=== PATIENT | female | born 1980 | race Two or more races ===

== ENCOUNTER → 2020-08-27 11:22 | Outpatient (BNVA) | payer OTHER, MEDICAID, SELFPAY | PROVIDERS: Visit Provider Obstetrics & Gynecology | DX: Z76.89 Persons encountering health services in other specified circumstances (principal) ==

== ENCOUNTER 2020-09-11 13:59 | Outpatient (REF) | payer OTHER, MEDICAID, SELFPAY ==
--- NOTE | 2020-09-11 14:03 | US_ITS ---
EXAMINATION: PELVIC ULTRASOUND CLINICAL INFORMATION: Menorrhagia. Evaluate myometrial thickness post 3 C-sections COMPARISON: Previous pelvic ultrasound most recent June 2019 TECHNIQUE: Transabdominal and transvaginal pelvic ultrasound was performed. Transvaginal exam was performed for better visualization of the uterus and ovaries. FINDINGS: The uterus is anteverted and measures 11 x 4 x 6.1 cm in dimension. No focal uterine lesion is seen. Myometrial thickness in the anterior lower uterine segment measures 0.7 cm. Endometrial thickness is normal and measures 1.1 cm. There are nabothian cysts in the cervix. The ovaries are normal-appearing. The right ovary measures 2 x 1.9 x 2.1 cm and the left ovary measures 3.3 x 1.8 x 3.2 cm. There is no fluid in the pelvis. US/US transvaginal IMPRESSION: Lower uterine segment myometrial thickness measures 0.7 cm. Otherwise unremarkable exam.
--- NOTE | 2020-09-11 14:03 | US_ITS ---
EXAMINATION: PELVIC ULTRASOUND CLINICAL INFORMATION: Menorrhagia. Evaluate myometrial thickness post 3 C-sections COMPARISON: Previous pelvic ultrasound most recent June 2019 TECHNIQUE: Transabdominal and transvaginal pelvic ultrasound was performed. Transvaginal exam was performed for better visualization of the uterus and ovaries. FINDINGS: The uterus is anteverted and measures 11 x 4 x 6.1 cm in dimension. No focal uterine lesion is seen. Myometrial thickness in the anterior lower uterine segment measures 0.7 cm. Endometrial thickness is normal and measures 1.1 cm. There are nabothian cysts in the cervix. The ovaries are normal-appearing. The right ovary measures 2 x 1.9 x 2.1 cm and the left ovary measures 3.3 x 1.8 x 3.2 cm. There is no fluid in the pelvis. US/US pelvic complete IMPRESSION: Lower uterine segment myometrial thickness measures 0.7 cm. Otherwise unremarkable exam.
== END 2020-09-11 14:00 | disposition home or self-care (01) ==
LOC: HO.US 13:59
PROVIDERS: PCP Internal Medicine; Visit Provider Obstetrics & Gynecology
DX: R10.2 Pelvic and perineal pain (principal)
CPT/HCPCS: 76830; 76856

== ENCOUNTER 2020-09-22 11:28 | Outpatient (REF) | payer OTHER, SELFPAY ==
[2020-09-23 08:27] LABS: BV Int Neg Control Negative (Negative); BV Int Pos Control Positive (Positive)
[2020-09-24 05:41] LABS: C. trachomatis RNA TMA NOT DETECTED (NOT DETECTED); N. gonorrhoeae RNA TMA NOT DETECTED (NOT DETECTED)
== END 2020-09-22 11:29 | disposition home or self-care (01) ==
LOC: HO.LNP 11:28
PROVIDERS: PCP Internal Medicine; Visit Provider Obstetrics & Gynecology
DX: Z11.3 Encounter for screening for infections with a predominantly sexual mode of transmission (principal); N63.0 Unspecified lump in unspecified breast; R10.2 Pelvic and perineal pain
CPT/HCPCS: 87480; 87491; 87510; 87591; 87660; 99212

== ENCOUNTER → 2020-10-06 10:39 | Outpatient (BNVA) | payer OTHER, SELFPAY | PROVIDERS: PCP Internal Medicine; Visit Provider Obstetrics & Gynecology | DX: Z76.89 Persons encountering health services in other specified circumstances (principal) ==

== ENCOUNTER 2021-04-03 10:01 | Outpatient (REF) | payer OTHER, SELFPAY ==
[2021-04-03 10:44] LABS: MANUAL DIFF FLAG NO
[2021-04-03 10:52] LABS: Basophils Percent Auto 0.4 % (0-2); Eosinophils Absolute Auto 0.2 X10*3/uL (0.0-0.4); Hematocrit 42.1 % (37-47); Hemoglobin 13.8 g/dl (12.0-16.0); Imm Gran Abs Auto 0.01 X10*3/uL (0.00-0.03); Imm Gran Pct Auto 0.2 % (0.0-0.4); Lymphocytes Absolute Auto 2.3 X10*3/uL (1.2-4.9); Lymphocytes Percent Auto 40.5 % (20-40); Mean Corpuscular HGB Conc 32.8 g/dl (31.0-35.0); Mean Corpuscular Hemoglobin 30.5 pg (27.0-33.0); Mean Corpuscular Volume 92.9 fL (80-98); Monocytes Absolute Auto 0.5 X10*3/uL (0.1-1.2); Monocytes Percent Auto 8.7 % (2-11); Neutrophils Absolute Auto 2.7 X10*3/uL (2.0-8.3); Neutrophils Percent Auto 47.2 % (45-73); Platelet Count 232 X10*3/uL (160-400); Red Blood Count 4.53 X10*6/uL (4.20-5.50); Red Cell Distribution Width 12.7 % (11.0-16.0); White Blood Count 5.6 X10*3/uL (4.8-10.8)
[2021-04-03 11:25] LABS: Alanine Aminotransferase 18 U/L (0-31); Albumin Level 4.1 g/dL (3.5-5.0); Alkaline Phosphatase 56 U/L (39-117); Anion Gap 10 (12-20); Aspartate Amino Transferase 15 U/L (5-31); Bilirubin Total 0.3 mg/dL (0.0-1.0); Blood Urea Nitrogen 6 mg/dL (9-16); Calcium 8.8 mg/dL (8.4-10.2); Carbon Dioxide 25 mmol/L (22-29); Chloride 108 mmol/L (96-108); Cholesterol 168 mg/dL; Estimated Glomerular Filt Rate > 60; Glucose Random 98 mg/dL (60-115); HDL Cholesterol 36 mg/dL; LDL Cholesterol Calculated 118 mg/dl; Sodium 139 mmol/L (135-145); Total Protein 6.9 g/dL (6.5-8.0); Triglycerides 72 mg/dL
[2021-04-03 11:38] LABS: Thyroid Stimulating Hormone 0.07 uIU/mL (0.32-4.0); Vitamin D 25-OH Total 40.2 ng/mL (>30)
[2021-04-03 11:51] LABS: Folate 14.5 ng/mL (> or = 4.0); Vitamin B12 > 2000 pg/mL (200-900)
[2021-04-06 17:17] LABS: TS Negative Control Passed; TS Panel A 0; TS Panel B 0; TS Positive Control Passed; TSpotTB Negative (SeeBelow)
== END 2021-04-03 10:02 | disposition home or self-care (01) ==
LOC: HO.LAB 10:01
PROVIDERS: PCP Internal Medicine; Visit Provider Internal Medicine
DX: E78.00 Pure hypercholesterolemia, unspecified (principal); E03.9 Hypothyroidism, unspecified
CPT/HCPCS: 36415; 80053; 80061; 82306; 82607; 82746; 84439; 84443; 85025; 86481

== ENCOUNTER 2021-10-23 11:22 | Outpatient (REF) | payer OTHER, SELFPAY ==
--- NOTE | ~2021-10-23 | US_ITS ---
EXAMINATION: APPENDIX ULTRASOUND CLINICAL INFORMATION: Right lower quadrant pain COMPARISON: None TECHNIQUE: Grayscale and color imaging of the right lower quadrant using a linear and curved transducer FINDINGS: The appendix is not identified by ultrasound. No ascites. US/US appendix IMPRESSION: Appendix not identified by ultrasound.
--- NOTE | ~2021-10-23 | US_ITS ---
EXAMINATION: US PELVIS CLINICAL INFORMATION: Right lower quadrant pain. History of endometrial ablation leading to absence of menstrual cycles. History of 3 prior C-sections. COMPARISON: Ultrasound dated from 09/11/2020. TECHNIQUE: Ultrasound of the pelvis is performed using both transabdominal and transvaginal transducers along with Doppler. Transvaginal imaging is performed due to inadequate visualization transabdominally. FINDINGS: The uterus is retroflexed and measures 9.6 x 4.6 x 5.2 cm. There is a 1.2 x 0.9 x 1.1 cm predominantly hypoechoic lesion in the myometrium of the right upper uterine body, which is not definitely identified on prior examinations. There is redemonstration of myometrial thickening in the lower anterior uterine segment, likely sequela of prior C-sections and not significantly changed. The endometrium was not well visualized. Nabothian cysts overlie the cervix. The right ovary measures 2.8 x 1.9 x 1.8 cm (5 mL) and the left ovary measures 2.7 x 2.8 x 1.8 cm (7 mL). No ovarian lesions are identified, and there is preserved flow on color Doppler. No free fluid. US/US pelvic and transvaginal IMPRESSION: Indeterminate 1.2 cm hypoechoic intramural lesion in the right upper uterus which statistically is likely to represent a fibroid. However, this is not definitely identified on the most recent priors which is atypical and therefore a short-term follow-up ultrasound is recommended to ensure stability or further characterization could be obtained with an MR of the pelvis. No evidence of ovarian torsion at the moment of this examination. No free fluid.
[2021-10-23 11:49] LABS: MANUAL DIFF FLAG NO
[2021-10-23 11:59] LABS: Basophils Percent Auto 0.5 % (0-2); Eosinophils Absolute Auto 0.2 X10*3/uL (0.0-0.4); Eosinophils Percent Auto 2.4 % (0-4); Hemoglobin 13.7 g/dl (12.0-16.0); Imm Gran Abs Auto 0.01 X10*3/uL (0.00-0.03); Imm Gran Pct Auto 0.2 % (0.0-0.4); Lymphocytes Absolute Auto 3.3 X10*3/uL (1.2-4.9); Lymphocytes Percent Auto 53.8 % (20-40); Mean Corpuscular HGB Conc 33.4 g/dl (31.0-35.0); Mean Corpuscular Hemoglobin 30.9 pg (27.0-33.0); Mean Corpuscular Volume 92.3 fL (80.0-98.0); Mean Platelet Volume 9.6 fL (9.4-12.3); Monocytes Absolute Auto 0.5 X10*3/uL (0.1-1.2); Monocytes Percent Auto 7.4 % (2-11); Neutrophils Absolute Auto 2.2 x10*3/uL (2.0-8.3); Neutrophils Percent Auto 35.7 % (45-73); Platelet Count 222 X10*3/uL (160-400); Red Blood Count 4.44 X10*6/uL (4.20-5.50); Red Cell Distribution Width 12.6 % (11.0-16.0); White Blood Count 6.2 X10*3/uL (4.8-10.8)
[2021-10-23 12:29] LABS: Alanine Aminotransferase 47 U/L (0-31); Alkaline Phosphatase 59 U/L (39-117); Anion Gap 10 (12-20); Aspartate Amino Transferase 39 U/L (5-31); Bilirubin Total 0.4 mg/dL (0.0-1.0); Blood Urea Nitrogen 10 mg/dL (9-16); Calcium 9.3 mg/dL (8.4-10.2); Carbon Dioxide 28 mmol/L (22-29); Chloride 108 mmol/L (96-108); Estimated Glomerular Filt Rate > 60; Glucose Random 92 mg/dL (60-115); Potassium 4.2 mmol/L (3.3-5.1); Sodium 142 mmol/L (135-145)
[2021-10-23 12:51] LABS: Free T4 (Free Thyroxine) 0.91 ng/dL (0.71-1.85); Thyroid Stimulating Hormone 0.85 uIU/mL (0.32-4.0)
== END 2021-10-23 11:23 | disposition home or self-care (01) ==
LOC: HO.US 11:22
PROVIDERS: PCP Internal Medicine; Visit Provider Nurse Practitioner Family
DX: R10.31 Right lower quadrant pain (principal); E03.9 Hypothyroidism, unspecified
CPT/HCPCS: 36415; 76705; 76830; 76856; 80053; 84439; 84443; 85025

== ENCOUNTER 2021-10-27 13:53 | Outpatient (REF) | payer OTHER, SELFPAY | END 2021-10-27 13:54 | disposition home or self-care (01) | LOC: HO.CT 13:53 | PROVIDERS: Visit Provider Nurse Practitioner Family | DX: Z13.89 Encounter for screening for other disorder (principal) ==

== ENCOUNTER 2021-11-04 14:32 | Outpatient (REF) | payer OTHER, SELFPAY ==
--- NOTE | ~2021-11-04 | CT_ITS ---
EXAMINATION: CT ABDOMEN AND PELVIS WITH CONTRAST CLINICAL INFORMATION: Other specified abnormal findings of blood chemistry. Recent exams indicates history of right lower quadrant pain. COMPARISON: Previous pelvic and appendix ultrasound 10/23/2021 TECHNIQUE: Multidetector volumetric images were obtained from the superior aspect of the liver through the pubic symphysis following administration 85 mL of Omnipaque 350 intravenous contrast. Sagittal and coronal reformatted images were obtained on the technologist's workstation. Oral contrast: Yes This CT examination was performed using dose optimization techniques as appropriate, variously including the following: *Automated exposure control *Adjustment of mA and/or kV according to patient size (this includes techniques or standardized protocols for targeted exams where dose is matched to indication/reason for exam; i.e. extremities or head) *Use of iterative reconstruction technique DLP: 323 mGy-cm FINDINGS: LUNG BASES: The visualized lung bases are unremarkable. LIVER, GALLBLADDER, AND BILIARY TREE: The liver is normal in size, shape, and attenuation. No focal hepatic lesion or biliary ductal dilatation is present. The gallbladder is contracted. The gallbladder is otherwise unremarkable. PANCREAS: Unremarkable. SPLEEN: Unremarkable. ADRENAL GLANDS: Unremarkable. KIDNEYS AND URETERS: The kidneys are normal in size, shape, and attenuation. No hydronephrosis, hydroureter, or calculi seen. No perinephric stranding. BLADDER: Unremarkable. GASTROINTESTINAL TRACT: There is question of mild wall thickening of the left colon versus underdistention. The small and large bowel are unremarkable otherwise unremarkable. The appendix is unremarkable. The stomach is unremarkable. ABDOMINAL WALL: There is a small umbilical hernia containing fat and a knuckle of small bowel. There is no evidence of obstruction. LYMPH NODES: Normal. VASCULAR: Unremarkable. PELVIC VISCERA: Unremarkable. OSSEOUS STRUCTURES: Unremarkable. CT/CT abdomen pelvis w con IMPRESSION: Normal-appearing appendix. Question mild bowel wall thickening of the left colon/colitis versus changes due to underdistention. Small umbilical hernia containing fat and knuckle of small bowel. No evidence of obstruction. Fleischner guidelines were followed.
[2021-11-04] MEDS: iohexoL 350 MG/ML 100 ML INFUS..BTL IV (15:03)
== END 2021-11-04 14:33 | disposition home or self-care (01) ==
LOC: HO.CT 14:32
PROVIDERS: PCP Nurse Practitioner Family; Visit Provider Nurse Practitioner Family
DX: R10.31 Right lower quadrant pain (principal); R79.89 Other specified abnormal findings of blood chemistry
CPT/HCPCS: 74177; Q9967

== ENCOUNTER 2021-11-25 13:12 | Outpatient (REF) | payer OTHER, SELFPAY ==
[2021-11-25 17:08] LABS: CT PCR NOT DETECTED (Not Detect.); NG PCR NOT DETECTED (Not Detect.)
[2021-11-26 13:31] LABS: BV Int Neg Control Negative (Negative); BV Int Pos Control Positive (Positive)
== END 2021-11-25 13:13 | disposition home or self-care (01) ==
LOC: HO.LAB 13:12
PROVIDERS: Visit Provider Advanced Practice Midwife
DX: R10.2 Pelvic and perineal pain (principal); G89.29 Other chronic pain; Z20.2 Contact with and (suspected) exposure to infections with a predominantly sexual mode of transmission
CPT/HCPCS: 87480; 87491; 87510; 87591; 87660; 99212

== ENCOUNTER → 2021-11-26 08:46 | Outpatient (BNVA) | payer OTHER, SELFPAY | PROVIDERS: PCP Internal Medicine; Referring Provider Internal Medicine; Visit Provider Surgery | DX: K42.9 Umbilical hernia without obstruction or gangrene (principal) | CPT/HCPCS: 99202 ==

== ENCOUNTER 2021-12-21 13:20 | Outpatient (REF) | payer OTHER, SELFPAY ==
--- NOTE | ~2021-12-21 | US_ITS ---
EXAMINATION: US PELVIS CLINICAL INFORMATION: Pelvic and perineal pain. COMPARISON: Ultrasound appendix 10/15/2021. Ultrasound pelvis 10/15/2021. Uterine ablation in 2019. TECHNIQUE: Ultrasound of the pelvis is performed using both transabdominal and transvaginal transducers along with Doppler. Transvaginal imaging is performed due to inadequate visualization transabdominally. FINDINGS: Uterus: The uterus is anteverted, anteflexed and measures 12.3 cm in length, 4.5 cm in AP and 5.3 cm in transverse dimension. The double wall endometrial thickness is 0.4 cm. The uterus is smooth in contour and has normal myometrial echogenicity. There is a hypoechoic lesion in the upper posterior body of the uterus measuring 0.8 x 0.4 x 0.5 cm. Previously it measured 1.2 0.9 x 1.1 cm. There is minimal fluid within the cervical canal with a complex heterogeneous areas seen in the cervix measuring 2.3 x 1.3 x 2.1 cm, question complex nabothian cyst. Adnexa: Both ovaries are visualized. There is normal color flow to the adnexa. There is no ovarian torsion. There is no pelvic ascites or fluid collection. Right ovary measures 2.9 x 1.7 x 2.0 cm and volume 5.2 mL. It appears unremarkable. Previously ovary measured 2.8 x 1.9 x 1.8 cm. Left ovary measures 3.0 x 1.6 x 2.6 cm and volume 2.4 mL. It appears unremarkable. Previously ovary measured 2.7 x 2.8 x 1.8 cm. The small amount of free fluid in the cul-de-sac. US/US pelvic and transvaginal IMPRESSION: Complex lesion in the cervix measuring 2.3 cm, likely complex nabothian cyst. There is minimal fluid within the cervical canal. The uterus is unremarkable except for a small fibroid. The ovaries are unremarkable.
== END 2021-12-21 13:21 | disposition home or self-care (01) ==
LOC: HO.US 13:20
PROVIDERS: Visit Provider Advanced Practice Midwife
DX: R10.2 Pelvic and perineal pain (principal); G89.29 Other chronic pain
CPT/HCPCS: 76830; 76856

== ENCOUNTER → 2022-01-04 12:14 | Outpatient (BNVA) | payer OTHER, SELFPAY | PROVIDERS: PCP Internal Medicine; Visit Provider Advanced Practice Midwife | DX: Z13.89 Encounter for screening for other disorder (principal) ==

== ENCOUNTER → 2022-01-20 14:58 | Outpatient (BNVA) | payer OTHER, SELFPAY | PROVIDERS: PCP Internal Medicine; Visit Provider Obstetrics & Gynecology | DX: R10.2 Pelvic and perineal pain (principal); Z32.02 Encounter for pregnancy test, result negative | CPT/HCPCS: 81025; 99212 ==

== ENCOUNTER 2022-01-29 09:19 | Day surgery (SDC) | payer OTHER, SELFPAY ==
[2022-01-22 17:56] VITALS: BMI 31.2
--- NOTE | 2022-01-28 09:48 | HO.ANESPROP2 ---
Documented by User: Soila Hemphill NP 01/28/22 09:51 HPI - Anesthesia Eval Consult details Narrative: 41yo F for Hernia Repair Umbilical PMFSH Active Problems Active Problems: All Active Problems (Updated 01/20/22 @ 15:53 by Rick Jones MD) Pelvic pain (Acute) Colitis (Acute) Umbilical hernia (Acute) Lesion of uterus (Acute) Elevated LFTs (Acute) RLQ abdominal pain (Acute) Skin tag (Acute) COVID-19 virus infection (Acute) Annual physical exam (Acute) Hypercholesterolemia (Acute) Obesity (BMI 30-39.9) (Acute) Hypothyroidism (Acute) Past Medical History Medical History Anemia HPV test positive Hypercholesterolemia Hypothyroidism Obesity (BMI 30-39.9) Vitamin D deficiency Family History Family History Father Diabetes HTN (hypertension) High cholesterol Mother Lymphoma Maternal Aunt Colon cancer Surgical History Surgical History History of History of endometrial ablation Tubal ligation status Social History Social History Housing: House Alcohol intake: never Patient Tobacco Use Status: Never used Tobacco e-Cigarette/Vaping Use: Never Used Second Hand Smoke Exposure: No Use of substances other than those prescribed or required for medical reasons: No Are you DNR?: No Advance Directives: No Advance Directives Information Provided: No Advance Directives on File: No Recently lost weight without trying: No Nutrition Risks: No Nutritional Risk Patient : No service: No Current occupational status: employed Meds Allergies Allergy/AdvReac Type Severity Reaction Status Date / Time No Known Allergies Allergy Verified 01/29/22 09:34 Home Medications Medication Instructions Recorded Confirmed Last Taken Type acetaminophen 650 mg 650 mg PO Q12H 08/27/20 01/22/22 Unknown History tablet,extended release (Tylenol Arthritis Pain) cholecalciferol (vitamin D3) 50 50 mcg PO DAILY 04/03/21 01/22/22 Unknown History mcg (2,000 unit) capsule ferrous sulfate 325 mg (65 mg 325 mg PO DAILY 04/03/21 01/29/22 01/27/22 History iron) tablet omega-3 fatty acids 1,000 mg 1,000 mg PO DAILY 04/03/21 01/29/22 01/27/22 History capsule (Fish Oil Concentrate) vitamin A palmitate 10,000 unit 1 unit PO DAILY 04/03/21 11/26/21 Unknown History capsule Exam Exam Date and Time: January 28, 2022 0948 Height,Weight and Vital Signs: Height 5 ft Weight 72.575 kg Pertinent Lab Results Pertinent Lab Results: Laboratory Tests 10/23/21 10/23/21 11:48 11:48 WBC 6.2 Hgb 13.7 Hct 41.0 Plt Count 222 Sodium 142 Potassium 4.2 Chloride 108 Carbon Dioxide 28 BUN 10 Creatinine 0.79 Assessment and Plan Assessment Anesthesia Assessment: Chart Reviewed Documented by User: Amarjit Stanford MD 01/29/22 11:11 PMFSH Past Medical History Medical History Anemia HPV test positive Hypercholesterolemia Hypothyroidism Obesity (BMI 30-39.9) Vitamin D deficiency Family History Family History Father Diabetes HTN (hypertension) High cholesterol Mother Lymphoma Maternal Aunt Colon cancer Family history of problems with anesthesia: No Surgical History Surgical History History of History of endometrial ablation Tubal ligation status History of Problems with Anesthesia: No Social History Social History Housing: House Alcohol intake: never Patient Tobacco Use Status: Never used Tobacco e-Cigarette/Vaping Use: Never Used Second Hand Smoke Exposure: No Use of substances other than those prescribed or required for medical reasons: No Are you DNR?: No Advance Directives: No Advance Directives Information Provided: No Advance Directives on File: No Recently lost weight without trying: No Nutrition Risks: No Nutritional Risk Patient : No service: No Current occupational status: employed Meds Allergies Allergy/AdvReac Type Severity Reaction Status Date / Time No Known Allergies Allergy Verified 01/29/22 09:34 Home Medications Medication Instructions Recorded Confirmed Last Taken Type acetaminophen 650 mg 650 mg PO Q12H 08/27/20 01/22/22 Unknown History tablet,extended release (Tylenol Arthritis Pain) cholecalciferol (vitamin D3) 50 50 mcg PO DAILY 04/03/21 01/22/22 Unknown History mcg (2,000 unit) capsule ferrous sulfate 325 mg (65 mg 325 mg PO DAILY 04/03/21 01/29/22 01/27/22 History iron) tablet omega-3 fatty acids 1,000 mg 1,000 mg PO DAILY 04/03/21 01/29/22 01/27/22 History capsule (Fish Oil Concentrate) vitamin A palmitate 10,000 unit 1 unit PO DAILY 04/03/21 11/26/21 Unknown History capsule Exam Airway Mallampati Class: I TM Dist: >3cm Neck ROM: Full Loose/Missing/Broken Teeth: No Heart: ok Lungs: ok Assessment and Plan Final Anesthetic Review Family History of Problems with Anesthesia: No History of Problems with Anesthesia: No NPO: Yes ASA Class: II Final Preanesthetic Review: No Changes in Pt Med Stat, Meds/Allgs Chart Reviewed, Consent Obtained/Reviewed and Anes Risks/Benef Reviewed Patient Risk: Low Procedure Risk: Low Anesthetic Plan Anesthetic Plan: GA and Agree w/ Assess. and Plan Disposition: Standard PACU
[2022-01-29] VITALS (9 sets, daily range): BP systolic 112–146; BP diastolic 63–92; PULSE 62–78; RESP 12–16; TEMP 36.1–36.8; O2SAT 97–100
--- NOTE | 2022-01-29 10:54 | MHC.SHP ---
Pre-Procedural Eval Section A Date of Service: 01/29/22 Section B Chief Complaint: Umbilical hernia without obstruction or gangrene Details of Present Illness: Has a reducible mass in the umbilicus Relevant Social History: None Present Medications: see Short Stay Collaborative assessment Medical History: Significant History (Obesity, hyperlipidemia, hypothyroidism) Allergies: Allergies Allergy/AdvReac Type Severity Reaction Status Date / Time No Known Allergies Allergy Verified 01/29/22 09:34 Review of Systems Sugical H&P ROS: Negative: Constitution, Cardiovascular, Respiratory, Neurological, Psychiatric, Hem-Onc, Allergic/Immunologic, Gastrointestinal, Genitourinary, Musculoskeletal, Integumentary, Endocrine and Eyes/Ears/Nose/Throat Exam Surgical H&P Exam: Normal: HEENT, Normal: Heart, Normal: Lungs, Normal: Extremities, Normal: Skin and Normal: Neurological and Significant Findings: Abdomen (Small umbilical hernia, obvious with Valsalva) Plan Diagnosis/Plan: Unchanged I have reviewed the history and physical and performed a pertinent physical examination on my patient. No changes have occurred unless specified.
[2022-01-29] MEDS: Lactated Ringers 1,000 ML 100 ML IVCONT (11:10)
--- NOTE | 2022-01-29 12:01 | W.PM.OPN ---
Operative Note Operative Note Date of Service: 01/29/22 Narrative: Preop diagnosis: umbilical hernia Postop diagnosis umbilical hernia Procedure: repair of umbilical hernia with ventralex mesh Surgeon: Juan Hardy MD First asst: JA Carty The patient is a 41F with a small reducible umbilical hernia. She understood the technique of repair with mesh and was aware of the risks, benefits and alternatives. The patient was brought to the OR and plaed supine under general anesthesia via LMA. The abdomen was prepped and draped in the usual sterile fashion. A surgical timeout was done. The patient recevied Cefazolin IV preop. I made a short infraumbilical curvilinear incision using a blade 15. This was carried down with electrocautery through the full thickness of the skin and subcutaneous. The hernia containing fat was seen. This as sharply dissected off the subcutaneous layer to to the fascia. I carefully dissected the entire hernia contents off the fascial edge until this was completely reduced. The defect was about 1.5 cm. There were clear margins under the fascia. I positioned a small Ventralex mesh on the underside of the fascia. This was flattened. I secured the Prolene straps to the fascia with Prolene 2-0 sutures. I trimmed the straps flush. I closed the fascia with a Maxon 1-0 figure of eight stitch. I irrigated. The subcutaneous layer was reapposed with interrupted Dexon 2-0 sutures. The skin was closed with a Dexon 4-0 running subcuticular stitch. The area was infultrated with Mrcaine.5% for postop analgesia. Dressings were applied and the procedure was completed. She tolerated the procedure well. There were no complications. EBL was 10 cc. The patient was extubated without difficulty and transferred to the PACU with stable VS.
[2022-01-29] MEDS: Acetaminophen 325 MG TABLET 650 MG PO (12:06)
[2022-01-29] MEDS: oxyCODONE HCl Immed Release 5 MG TABLET PO ×2 (12:07→13:02)
== END 2022-01-29 14:00 | disposition home or self-care (01) ==
PROVIDERS: Visit Provider Surgery
PROC: (CPT 49585; principal; 2022-01-29 11:10)
DX: K42.9 Umbilical hernia without obstruction or gangrene (principal); Z79.1 Long term (current) use of non-steroidal anti-inflammatories (NSAID); D64.9 Anemia, unspecified; Z79.899 Other long term (current) drug therapy; E78.00 Pure hypercholesterolemia, unspecified; E03.9 Hypothyroidism, unspecified; E55.9 Vitamin D deficiency, unspecified; R87.810 Cervical high risk human papillomavirus (HPV) DNA test positive; E66.9 Obesity, unspecified; Z68.31 Body mass index [BMI] 31.0-31.9, adult
CPT/HCPCS: 49585; C1781; J0690; J2250; J3010

== ENCOUNTER → 2022-02-10 08:20 | Outpatient (BNVA) | payer OTHER, SELFPAY | PROVIDERS: Visit Provider Surgery | DX: Z48.815 Encounter for surgical aftercare following surgery on the digestive system (principal); Z87.19 Personal history of other diseases of the digestive system | CPT/HCPCS: 99212 ==

== ENCOUNTER 2022-03-02 23:10 | Inpatient (IN) | payer OTHER, SELFPAY ==
--- NOTE | ~2022-03-02 | NM_ITS ---
BILIARY TRACT IMAGING STUDY CLINICAL INDICATION: Abdominal pain, elevated LFTs, right upper quadrant pain, question cholecystitis. PROCEDURE: Scintillation camera images were obtained over the abdomen for an observation of 2 hours following the intravenous administration of 4.5 millicuries technetium 99m Mebrofenin. COMPARISON: No previous biliary scan is available for comparison. Abdominal ultrasound and CT scan of the abdomen and pelvis, both dated 03/03/2022 are available for comparison.. FINDINGS: There is good concentration of activity in the liver by 5 minutes post injection. Biliary activity is visualized by 55 minutes, and there is good visualization of small bowel activity by 95 minutes. The gallbladder is faintly visualized beginning at 55 minutes post injection and gradually increases in intensity. At the end of the study, 2 hours post injection the gallbladder is well visualized as well as some small bowel activity. There is persistent activity diffusely in the liver. NM/NM hepatobiliary wo pharm IMPRESSION: Visualization of the gallbladder is evidence of a patent cystic duct and strong evidence against the diagnosis of acute cholecystitis. The common bile duct is patent. Liver function is impaired as evidenced by prolonged retention of activity in the liver at 2 hours.
--- NOTE | ~2022-03-02 | NM_ITS ---
EXAMINATION: PULMONARY PERFUSION STUDY CLINICAL INFORMATION: Elevated d-dimer. COMPARISON: No previous lung scan or recent chest radiographs are available for comparison. TECHNIQUE: Following the intravenous injection of 4.0 mCi Tc-99m MAA, the lungs were imaged in the anterior and posterior, left and right lateral and IRISH, CAZARES, LPO, and RPO projections using a gamma scintillation camera. FINDINGS: No segmental perfusion defects are present. There is homogeneous distribution of activity bilaterally. There are no focal anatomic appearing perfusion defects present. NM/NM pul perfusion IMPRESSION: Normal radionuclide lung perfusion scan.
--- NOTE | ~2022-03-02 | US_ITS ---
EXAMINATION: US ABDOMEN LIMITED CLINICAL INFORMATION: Transaminitis. Elevated total bilirubin. COMPARISON: CT abdomen and pelvis 03/03/2022. TECHNIQUE: Real-time imaging of the right upper quadrant abdominal viscera. FINDINGS: PANCREAS: Not well visualized due to bowel gas. LIVER: Normal. The liver is normal in size. The liver contour is normal. Parenchymal echogenicity is normal. No focal hepatic lesion. There is no intrahepatic biliary duct dilatation seen. GALLBLADDER: The gallbladder is slightly contracted. No evidence of stones, sludge, polyps, wall thickening or pericholecystic fluid. COMMON BILE DUCT: Normal in caliber measuring 0.3 cm in diameter. RIGHT KIDNEY: Normal. No hydronephrosis. No renal calculi or focal parenchymal lesions. The kidney measures 10.0 cm in maximum dimension. FREE FLUID: None. US/US abdomen limited IMPRESSION: Contracted gallbladder. Limited visualization of the pancreas. Otherwise unremarkable right upper quadrant ultrasound.
--- NOTE | ~2022-03-02 | CT_ITS ---
EXAMINATION: CT ABDOMEN AND PELVIS WITH CONTRAST CLINICAL INFORMATION: Periumbilical pain status post hernia repair 01/29/2022. COMPARISON: 11/04/2021 TECHNIQUE: Multidetector volumetric images were obtained from the superior aspect of the liver through the pubic symphysis following administration 75 mL of Omnipaque 300 intravenous contrast. Sagittal and coronal reformatted images were obtained on the technologist's workstation. Oral contrast: No This CT examination was performed using dose optimization techniques as appropriate, variously including the following: *Automated exposure control *Adjustment of mA and/or kV according to patient size (this includes techniques or standardized protocols for targeted exams where dose is matched to indication/reason for exam; i.e. extremities or head) *Use of iterative reconstruction technique DLP: 75 mGy-cm FINDINGS: LUNG BASES: The visualized lung bases are unremarkable. LIVER, GALLBLADDER, AND BILIARY TREE: The liver is normal in size, shape, and attenuation. No focal hepatic lesion or biliary ductal dilatation is present. Gallbladder unremarkable. PANCREAS: Unremarkable. SPLEEN: Unremarkable. ADRENAL GLANDS: Unremarkable. KIDNEYS AND URETERS: The kidneys are normal in size, shape, and attenuation. No hydronephrosis, hydroureter, or calculi seen. No perinephric stranding. BLADDER: Unremarkable. GASTROINTESTINAL TRACT: There are several loops of ileum which demonstrate mild wall thickening suggestive of enteritis. The more proximal small bowel, stomach and colon are unremarkable. Normal appendix. ABDOMINAL WALL: Interval umbilical herniorrhaphy. Trace fluid associated with mesh and mild fat stranding deep to the hernia repair within the properitoneal fat which is felt to be within normal limits. LYMPH NODES: Normal. VASCULAR: Unremarkable. PELVIC VISCERA: Uterus and adnexa unremarkable from a CT imaging standpoint. OSSEOUS STRUCTURES: No acute or suspicious osseous abnormalities. CT/CT abdomen pelvis w con IMPRESSION: * Interval umbilical herniorrhaphy with expected postoperative changes. * Mild wall thickening of several loops of ileum reflect a mild enteritis. * No evidence of bowel obstruction potential etiology for the patient's symptomatology is identified. Fleischner guidelines were followed.
--- NOTE | ~2022-03-02 | CT_ITS ---
EXAMINATION: CT ABDOMEN AND PELVIS WITH CONTRAST CLINICAL INFORMATION: Abdominal pain and bacteremia COMPARISON: Previous abdominal ultrasound February [address] of the abdomen and pelvis without IV contrast 03/03/2022 TECHNIQUE: Multidetector volumetric images were obtained from the superior aspect of the liver through the pubic symphysis following administration 85 mL of Omnipaque 350 intravenous contrast. Sagittal and coronal reformatted images were obtained on the technologist's workstation. Oral contrast: Yes This CT examination was performed using dose optimization techniques as appropriate, variously including the following: *Automated exposure control *Adjustment of mA and/or kV according to patient size (this includes techniques or standardized protocols for targeted exams where dose is matched to indication/reason for exam; i.e. extremities or head) *Use of iterative reconstruction technique DLP: 573 mGy-cm FINDINGS: LUNG BASES: There are tiny bilateral pleural effusions. The visualized lung bases are otherwise unremarkable. LIVER, GALLBLADDER, AND BILIARY TREE: The liver is normal in size, shape, and attenuation. No focal hepatic lesion or biliary ductal dilatation is present. The gallbladder is unremarkable with no evidence of radiopaque gallstones, gallbladder wall thickening, or obvious pericholecystic inflammatory changes. PANCREAS: Unremarkable. SPLEEN: Unremarkable. ADRENAL GLANDS: Unremarkable. KIDNEYS AND URETERS: There is heterogeneous enhancement of the right kidney with low-attenuation areas suggestive of pyelonephritis. BLADDER: Unremarkable. GASTROINTESTINAL TRACT: The small and large bowel are unremarkable. The appendix is unremarkable. ABDOMINAL WALL: There are postsurgical changes following umbilical hernia repair with mesh. No recurrent hernia or fluid collection. LYMPH NODES: Normal. VASCULAR: Unremarkable. PELVIC VISCERA: There is a small amount of fluid in the pelvis adjacent to both ovaries and the uterus.. Both ovaries appear prominent and demonstrate slightly heterogeneous enhancement. There is slight heterogeneous appearance of the the peripheral anterior surface of the uterus as well. This appears high in attenuation and could potentially represent a small amount of hemorrhage or hemoperitoneum following hernia repair. PID should also be considered. Pelvic vasculature appears prominent. OSSEOUS STRUCTURES: Unremarkable. CT/CT abdomen pelvis w con IMPRESSION: Heterogeneous enhancement of the right kidney suggestive of pyelonephritis. There is also heterogeneous appearance of both ovaries and along the anterior contour of the uterus and small amount of ascites in the pelvis adjacent to the uterus and both ovaries. Small amount of hemorrhage in the pelvis/hemoperitoneum post hernia repair versus possible PID should be considered. Fleischner guidelines were followed.
--- NOTE | ~2022-03-02 | US_ITS ---
EXAMINATION: US VENOUS ULTRASOUND WITH DOPPLER LOWER EXTREMITY, BILATERAL CLINICAL INFORMATION: Elevated d-dimer COMPARISON: None TECHNIQUE: Ultrasound of the deep veins is performed from the hip to the calf with compression sonography and color and pulse Doppler assessment. Spectral analysis with color-flow imaging is performed. FINDINGS: RIGHT: There is normal venous compression and respiratory variation and augmented flow. The visualized common femoral vein, superficial femoral vein, profunda femoral vein, popliteal vein, and the trifurcation region shows no evidence of deep venous thrombosis. There is no significant popliteal fossa cyst. LEFT: There is normal venous compression and respiratory variation and augmented flow. The visualized common femoral vein, superficial femoral vein, profunda femoral vein, popliteal vein, and the trifurcation region shows no evidence of deep venous thrombosis. There is no significant popliteal fossa cyst. US/US venous duplex LE BI IMPRESSION: No DVT demonstrated in the bilateral lower extremity.
--- NOTE | 2022-03-02 23:18 | ED_ITS ---
HPI - Abdominal Pain General Chief Complaint: Abdominal Pain Stated Complaint: stomach pain Time Seen by Provider: 03/02/22 23:18 Source: patient and old records reviewed Mode of arrival: EMS Limitations: no limitations History of Present Illness MD elicited complaint: abdominal pain Pertinent past history: other (s/p umbilical hernia repair on 01/29 with [facility] - Dr. Hardy) Onset (ago): day(s) (pain started Tuesday after her son ran into her abdomen) Pain Consistency: constant Location: epigastric and periumbilical Severity: moderate Quality: cramping Radiation: none Migration to: no migration Exacerbating factors: movement Relieving factors: nothing Context: recent surgery/procedure and recent injury Associated symptoms: nausea, chills and other (+ flatus and bowel movement today ) Treatments prior to arrival: NSAIDs (took 800mg motrin prior to arrival ) Related Data Home Medications Medication Instructions Recorded Confirmed acetaminophen 650 mg 650 mg PO Q12H 08/27/20 01/22/22 tablet,extended release (Tylenol Arthritis Pain) cholecalciferol (vitamin D3) 50 50 mcg PO DAILY 04/03/21 01/22/22 mcg (2,000 unit) capsule ferrous sulfate 325 mg (65 mg 325 mg PO DAILY 04/03/21 01/29/22 iron) tablet omega-3 fatty acids 1,000 mg 1,000 mg PO DAILY 04/03/21 01/29/22 capsule (Fish Oil Concentrate) vitamin A palmitate 10,000 unit 1 unit PO DAILY 04/03/21 11/26/21 capsule Previous Rx's Medication Instructions Recorded ascorbic acid (vitamin C) 500 mg 500 mg PO DAILY #30 tab 07/10/20 tablet ibuprofen 800 mg tablet 800 mg PO Q8H PRN #30 tab 10/23/21 levothyroxine 88 mcg tablet 88 mcg PO .COMPLEX #90 tab 12/06/21 oxycodone 5 mg tablet 5 mg PO Q4H PRN #25 tab 01/29/22 Allergies Allergy/AdvReac Type Severity Reaction Status Date / Time No Known Allergies Allergy Verified 02/10/22 08:41 Review of Systems Review of Systems Constitutional : No Weight loss, No Fever, pos Chills ENT/Mouth : No sore throat, No Rhinorrhea Eyes: No Swelling, No Redness Cardiovascular : No Chest Pain, No SOB, NoEdema Respiratory : No Cough, No Sputum, No Wheezing Gastrointestinal : Positive Nausea, no Vomiting, no Diarrhea, positive abdominal Pain, No Hematochezia, No Melena, no constipation Genitourinary : No Dysuria, No Urinary Frequency, No Hematuria, No Urgency Musculoskeletal : No joint pain, No Myalgias, No Joint Swelling Skin : No Skin Lesions, No rash Neuro : No Weakness, No Numbness, No Dizziness, No Headache Psych : No Anxiety/Panic, No Depression Heme/Lymph: No Bruising, No Lymphadenopathy Endocrine : No Polyuria, No Polydipsia All other systems reviewed and are negative. [facility] Past Medical History Attestation statement: The following information was validated with the patient. Medical History Anemia HPV test positive Hypercholesterolemia Hypothyroidism Obesity (BMI 30-39.9) Vitamin D deficiency Surgical History History of History of endometrial ablation History of umbilical hernia repair Tubal ligation status Family History Family History Father Diabetes HTN (hypertension) High cholesterol Mother Lymphoma Maternal Aunt Colon cancer Social History Social History Housing: House Alcohol intake: never Patient Tobacco Use Status: Never used Tobacco e-Cigarette/Vaping Use: Never Used Second Hand Smoke Exposure: No Advance Directives: No service: No Current occupational status: employed Physical Exam ED Vital Signs: Vital Signs - 24 hr 03/02/22 23:29 03/02/22 23:58 03/03/22 01:53 Temperature 98.4 F 98.6 F Pulse Rate 102 H 100 Respiratory Rate 16 16 16 Blood Pressure 99/66 101/70 Pulse Oximetry 97 97 BMI result Body Mass Index 27.4 Appearance: Alert. Oriented X3. No acute distress. Eyes: Pupils equal, round and reactive to light. ENT: Pharynx normal. Neck: Normal inspection. Neck supple. CVS: Normal heart rate and rhythm. Pulses normal. Respiratory: No respiratory distress. Breath sounds normal. Abdomen: Soft and moderate ttp in epigastric area no rebound guarding no mass felt, umbilicus looks normal no signs of infection Skin: Skin warm and dry. Normal skin color. Normal skin turgor. Extremities: No lower extremity edema. No calf ttp Neuro: Oriented X 3. No motor deficit. No sensory deficit. Course Course Course Narrative: does not take aspirin, only taking 650mg of tylenol TID max 2,000mg a day using contrast to evaluate operative site but also spleen given LFTs possible infection suspected will start on antibiotics and send off labs for elevated LFTs as well - 1232am ddimer checked because of abnormal platelets and INR - I do not suspect PE she has no chest pain, hypoxia or dyspnea abnormal LFTs will obtain US and plan to admit after MDM - Abdominal Pain MDM Narrative Medical decision making narrative: 41 yo female with hx of HLD, hypothyroidism, colitis, s/p mesh repair of umbilical hernia on 01/29 here with c/o pain in epigastric region and near hernia repair site at this time will obtain labs, UA, CT scan for SBO, IVF, IV fentanyl for pain. Dispo per results and findings. Lab Data Result diagrams: 03/02/22 23:38 03/02/22 23:38 Labs: Lab Results 03/02/22 03/02/22 03/02/22 Range/Units 23:38 23:38 23:38 WBC 5.3 (4.8-10.8) X10*3/uL RBC 4.45 (4.20-5.50) X10*6/uL Hgb 13.9 (12.0-16.0) g/dl Hct 39.6 (37.0-47.0) % MCV 89.0 (80.0-98.0) fL MCH 31.2 (27.0-33.0) pg MCHC 35.1 H (31.0-35.0) g/dl RDW 12.8 (11.0-16.0) % Plt Count 92 L D (160-400) X10*3/uL MPV 10.5 (9.4-12.3) fL Immature Gran % (Auto) Cancelled Neut % (Auto) Cancelled Lymph % (Auto) Cancelled [place] % (Auto) Cancelled Eos % (Auto) Cancelled Baso % (Auto) Cancelled Lymph # (Auto) Cancelled [place] # (Auto) Cancelled Eos # (Auto) Cancelled Baso # (Auto) Cancelled Abs Immat Gran (auto) Cancelled Absolute Neuts (auto) Cancelled Absolute Nucleated RBC 0.000 (0.0-0.012) X10*3/uL Nucleated RBC % (auto) 0.0 (0.0-0.2) /100WBC Neutrophils % (Manual) 76 H (45-73) % Band Neutrophils % 13 H (3-5) % Lymphocytes % (Manual) 8 L (20-40) % Monocytes % (Manual) 3 (2-11) % Abs Neuts (Manual) 4.7 (2.0-8.3) X10*3/uL Lymphocytes # (Manual) 0.4 L (1.2-4.9) X10*3/uL Monocytes # (Manual) 0.2 (0.1-1.2) X10*3/uL Smudge Cells PRES Toxic Vacuolation PRESENT Dohle Bodies PRESENT Platelet Estimate DECREASED (NORMAL) Plt Morphology Comment NORMAL RBC Morphology NORMAL Macrocytosis 1+ (5-14) /OIF PT (9.9-13.0) SEC INR (0.9-1.1) Fibrinogen (259-690) MG/DL D-Dimer High Sensitivty NG/ML Sodium 136 (135-145) mmol/L Potassium 3.5 (3.3-5.1) mmol/L Chloride 104 (96-108) mmol/L Carbon Dioxide 21 L (22-29) mmol/L Anion Gap 15 (12-20) BUN 10 (9-16) mg/dL Creatinine 0.86 (0.5-1.4) mg/dL Estim Creat Clear Calc 88.9 Estimated GFR > 60 Random Glucose 161 H (60-115) mg/dL Lactic Acid (0.5-2.0) mmol/L Calcium 8.3 L D (8.4-10.2) mg/dL Magnesium 1.8 (1.6-2.6) mg/dL Total Bilirubin 4.6 H (0.0-1.0) mg/dL Direct Bilirubin 2.6 H (0.0-0.5) mg/dL AST 114 H (5-31) U/L ALT 202 H (0-31) U/L Alkaline Phosphatase 143 H D (39-117) U/L Total Protein 6.5 (6.5-8.0) g/dL Albumin 3.6 (3.5-5.0) g/dL Lipase 9 (8-78) U/L Beta HCG, Quant mIU/mL Urine Color Urine Appearance Urine pH (5.0-8.0) Ur Specific [place] (1.005-1.025) Urine Protein (NEG-TRACE) MG/DL Urine Glucose (UA) (NEG) MG/DL Urine Ketones (NEG) MG/DL Urine Blood (NEG) Urine Nitrite (NEG) Ur Leukocyte Esterase (NEG) Urine RBC (0) /HPF Urine WBC (0-4) /HPF Ur Squamous Epith Cells /LPF Urine Bacteria /LPF Hyaline Casts /LPF Acetaminophen 3 (<30) mcg/mL Ethyl Alcohol mg/dL COVID-19 (MAYLIN) Negative (Negative) COVID-19 Clin Com See Note Influenza Type A (JOSE) (Negative) Influenza Type B (JOSE) (Negative) Influenza A & B Note 03/02/22 03/02/22 03/02/22 Range/Units 23:38 23:38 23:38 WBC (4.8-10.8) X10*3/uL RBC (4.20-5.50) X10*6/uL Hgb (12.0-16.0) g/dl Hct (37.0-47.0) % MCV (80.0-98.0) fL MCH (27.0-33.0) pg MCHC (31.0-35.0) g/dl RDW (11.0-16.0) % Plt Count (160-400) X10*3/uL MPV (9.4-12.3) fL Immature Gran % (Auto) Neut % (Auto) Lymph % (Auto) [place] % (Auto) Eos % (Auto) Baso % (Auto) Lymph # (Auto) [place] # (Auto) Eos # (Auto) Baso # (Auto) Abs Immat Gran (auto) Absolute Neuts (auto) Absolute Nucleated RBC (0.0-0.012) X10*3/uL Nucleated RBC % (auto) (0.0-0.2) /100WBC Neutrophils % (Manual) (45-73) % Band Neutrophils % (3-5) % Lymphocytes % (Manual) (20-40) % Monocytes % (Manual) (2-11) % Abs Neuts (Manual) (2.0-8.3) X10*3/uL Lymphocytes # (Manual) (1.2-4.9) X10*3/uL Monocytes # (Manual) (0.1-1.2) X10*3/uL Smudge Cells Toxic Vacuolation Dohle Bodies Platelet Estimate (NORMAL) Plt Morphology Comment RBC Morphology Macrocytosis /OIF PT 21.8 H (9.9-13.0) SEC INR 1.9 H (0.9-1.1) Fibrinogen 572 (259-690) MG/DL D-Dimer High Sensitivty 18818 NG/ML Sodium (135-145) mmol/L Potassium (3.3-5.1) mmol/L Chloride (96-108) mmol/L Carbon Dioxide (22-29) mmol/L Anion Gap (12-20) BUN (9-16) mg/dL Creatinine (0.5-1.4) mg/dL Estim Creat Clear Calc Estimated GFR Random Glucose (60-115) mg/dL Lactic Acid 1.6 (0.5-2.0) mmol/L Calcium (8.4-10.2) mg/dL Magnesium (1.6-2.6) mg/dL Total Bilirubin (0.0-1.0) mg/dL Direct Bilirubin (0.0-0.5) mg/dL AST (5-31) U/L ALT (0-31) U/L Alkaline Phosphatase (39-117) U/L Total Protein (6.5-8.0) g/dL Albumin (3.5-5.0) g/dL Lipase (8-78) U/L Beta HCG, Quant < 2 mIU/mL Urine Color Urine Appearance Urine pH (5.0-8.0) Ur Specific [place] (1.005-1.025) Urine Protein (NEG-TRACE) MG/DL Urine Glucose (UA) (NEG) MG/DL Urine Ketones (NEG) MG/DL Urine Blood (NEG) Urine Nitrite (NEG) Ur Leukocyte Esterase (NEG) Urine RBC (0) /HPF Urine WBC (0-4) /HPF Ur Squamous Epith Cells /LPF Urine Bacteria /LPF Hyaline Casts /LPF Acetaminophen (<30) mcg/mL Ethyl Alcohol mg/dL COVID-19 (MAYLIN) (Negative) COVID-19 Clin Com Influenza Type A (JOSE) (Negative) Influenza Type B (JOSE) (Negative) Influenza A & B Note 03/02/22 03/02/22 03/03/22 Range/Units 23:38 23:38 00:47 WBC (4.8-10.8) X10*3/uL RBC (4.20-5.50) X10*6/uL Hgb (12.0-16.0) g/dl Hct (37.0-47.0) % MCV (80.0-98.0) fL MCH (27.0-33.0) pg MCHC (31.0-35.0) g/dl RDW (11.0-16.0) % Plt Count (160-400) X10*3/uL MPV (9.4-12.3) fL Immature Gran % (Auto) Neut % (Auto) Lymph % (Auto) [place] % (Auto) Eos % (Auto) Baso % (Auto) Lymph # (Auto) [place] # (Auto) Eos # (Auto) Baso # (Auto) Abs Immat Gran (auto) Absolute Neuts (auto) Absolute Nucleated RBC (0.0-0.012) X10*3/uL Nucleated RBC % (auto) (0.0-0.2) /100WBC Neutrophils % (Manual) (45-73) % Band Neutrophils % (3-5) % Lymphocytes % (Manual) (20-40) % Monocytes % (Manual) (2-11) % Abs Neuts (Manual) (2.0-8.3) X10*3/uL Lymphocytes # (Manual) (1.2-4.9) X10*3/uL Monocytes # (Manual) (0.1-1.2) X10*3/uL Smudge Cells Toxic Vacuolation Dohle Bodies Platelet Estimate (NORMAL) Plt Morphology Comment RBC Morphology Macrocytosis /OIF PT (9.9-13.0) SEC INR (0.9-1.1) Fibrinogen (259-690) MG/DL D-Dimer High Sensitivty NG/ML Sodium (135-145) mmol/L Potassium (3.3-5.1) mmol/L Chloride (96-108) mmol/L Carbon Dioxide (22-29) mmol/L Anion Gap (12-20) BUN (9-16) mg/dL Creatinine (0.5-1.4) mg/dL Estim Creat Clear Calc Estimated GFR Random Glucose (60-115) mg/dL Lactic Acid (0.5-2.0) mmol/L Calcium (8.4-10.2) mg/dL Magnesium (1.6-2.6) mg/dL Total Bilirubin (0.0-1.0) mg/dL Direct Bilirubin (0.0-0.5) mg/dL AST (5-31) U/L ALT (0-31) U/L Alkaline Phosphatase (39-117) U/L Total Protein (6.5-8.0) g/dL Albumin (3.5-5.0) g/dL Lipase (8-78) U/L Beta HCG, Quant mIU/mL Urine Color DK YELLOW Urine Appearance HAZY Urine pH 6.0 (5.0-8.0) Ur Specific [place] 1.015 (1.005-1.025) Urine Protein TRACE (NEG-TRACE) MG/DL Urine Glucose (UA) NEG (NEG) MG/DL Urine Ketones NEG (NEG) MG/DL Urine Blood TRACE (NEG) Urine Nitrite NEG (NEG) Ur Leukocyte Esterase NEG (NEG) Urine RBC 0-2 (0) /HPF Urine WBC 0 (0-4) /HPF Ur Squamous Epith Cells 2+ /LPF Urine Bacteria TRACE /LPF Hyaline Casts 0-2 /LPF Acetaminophen (<30) mcg/mL Ethyl Alcohol < 10 mg/dL COVID-19 (MAYLIN) (Negative) COVID-19 Clin Com Influenza Type A (JOSE) Negative (Negative) Influenza Type B (JOSE) Negative (Negative) Influenza A & B Note See Note Discharge Plan Discharge Clinical Impression: Abdominal pain, Elevated LFTs, Thrombocytopenia, Elevated INR, Bandemia, Abnormal CBC Patient Disposition: Admitted As Inpatient
[2022-03-02 23:20] VITALS: BP 100/68; PULSE 117; O2SAT 99; BMI 27.4
[2022-03-02 23:29] VITALS: BP 99/66; PULSE 102; RESP 16; TEMP 36.9; O2SAT 97
[2022-03-02 23:55] LABS: Hematocrit 39.6 % (37.0-47.0); Hemoglobin 13.9 g/dl (12.0-16.0); Mean Corpuscular HGB Conc 35.1 g/dl (31.0-35.0); Mean Corpuscular Hemoglobin 31.2 pg (27.0-33.0); Mean Platelet Volume 10.5 fL (9.4-12.3); Red Blood Count 4.45 X10*6/uL (4.20-5.50); Red Cell Distribution Width 12.8 % (11.0-16.0)
[2022-03-02 23:56] LABS: Platelet Count 92 X10*3/uL (160-400); WBC ABN SCTR FOR CBC 1
[2022-03-02 23:58] VITALS: RESP 16
[2022-03-02] MEDS: fentaNYL citrate/PF 100 MCG/2 ML VIAL 50 MCG IVPUSH (23:58)
[2022-03-02] MEDS: ondansetron HCL 4 MG/2 ML VIAL IVPUSH (23:58)
[2022-03-02] MEDS: 0.9 % Sodium Chloride 1,000 ML 999 ML IVCONT (23:59)
[2022-03-03] VITALS (9 sets, daily range): BP systolic 91–121; BP diastolic 59–71; PULSE 70–104; RESP 14–20; TEMP 36.6–37.5; O2SAT 97–100
[2022-03-03 00:02] LABS: COVID-19 Test Negative (Negative); IDNOW Serial# 16C4AD1C; Influenza A Negative (Negative); Influenza B2 Negative (Negative)
[2022-03-03 00:05] LABS: Lactic Acid 1.6 mmol/L (0.5-2.0)
[2022-03-03 00:13] LABS: INTERNATIONAL NORM RATIO 1.9 (0.9-1.1); Prothrombin Time 21.8 SEC (9.9-13.0)
[2022-03-03 00:17] LABS: Band Neutrophils Percent 13 % (3-5); Lymphocytes Percent Manual 8 % (20-40); Monocytes Percent Manual 3 % (2-11); Neutrophils Percent Manual 76 % (45-73)
[2022-03-03 00:18] LABS: Dohle Bodies PRESENT; Macrocytosis 1+ (5-14) /OIF; Platelet Estimate DECREASED (NORMAL); Platelet Morphology Comment NORMAL; RBC Morphology NORMAL; Smudge Cells PRES; Toxic Vacuolation PRESENT
[2022-03-03 00:19] LABS: Lymphocytes Absolute Manual 0.4 X10*3/uL (1.2-4.9); Monocytes Absolute Manual 0.2 X10*3/uL (0.1-1.2); Neutrophils Absolute Manual 4.7 X10*3/uL (2.0-8.3); White Blood Count 5.3 X10*3/uL (4.8-10.8)
[2022-03-03 00:22] LABS: HCG Quantitative < 2 mIU/mL
[2022-03-03 00:24] LABS: Alanine Aminotransferase 202 U/L (0-31); Albumin Level 3.6 g/dL (3.5-5.0); Alkaline Phosphatase 143 U/L (39-117); Anion Gap 15 (12-20); Aspartate Amino Transferase 114 U/L (5-31); Bilirubin Direct 2.6 mg/dL (0.0-0.5); Bilirubin Total 4.6 mg/dL (0.0-1.0); Blood Urea Nitrogen 10 mg/dL (9-16); Calcium 8.3 mg/dL (8.4-10.2); Carbon Dioxide 21 mmol/L (22-29); Chloride 104 mmol/L (96-108); Creatinine Clr Calc Pharmacy 88.9; Estimated Glomerular Filt Rate > 60; Glucose Random 161 mg/dL (60-115); Lipase 9 U/L (8-78); Magnesium 1.8 mg/dL (1.6-2.6); Potassium 3.5 mmol/L (3.3-5.1); Sodium 136 mmol/L (135-145); Total Protein 6.5 g/dL (6.5-8.0)
[2022-03-03 00:43] LABS: Fibrinogen 572 MG/DL (259-690)
[2022-03-03 00:52] LABS: Acetaminophen LAB 3 mcg/mL (<30)
[2022-03-03 01:01] LABS: Ethanol < 10 mg/dL
[2022-03-03 01:18] LABS: Appearance Urine HAZY; Color Urine DK YELLOW; Glucose Urine UA NEG (NEG); Leukocyte Esterase Urine NEG (NEG); Nitrite Urine NEG (NEG); Specific Gravity - Urine 1.015 (1.005-1.025); UACC Culture Trigger NO; Urine Blood TRACE (NEG); Urine Ketones NEG (NEG); Urine Protein TRACE MG/DL (NEG-TRACE)
[2022-03-03 01:28] LABS: Bacteria Urine TRACE /LPF; Hyaline Casts Urine 0-2 /LPF; RBC Urine 0-2 /HPF (0); Squamous Epithelial Cell Urine 2+ /LPF; WBC Urine 0 /HPF (0-4)
[2022-03-03] MEDS: cefTRIAXone sodium 1 GM in 0.9 % Sodium Chloride 50 ML IV (01:44)
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
[2022-03-03] MEDS: 0.9 % Sodium Chloride 1,000 ML 999 ML IVCONT (03:27)
[2022-03-03] MEDS: Heparin Sodium,Porcine 5,000 UNIT/ML VIAL 5000 UNIT SUBCUT ×3 (03:44→21:15)
[2022-03-03] MEDS: Piperacillin Sodium/Tazobactam 3.375 GM in 0.9 % Sodium Chloride 50 ML IV ×4 (03:45→21:15)
[2022-03-03] MEDS: HYDROmorphone HCl 1 MG/ML SYRINGE 0.5 MG IVPUSH ×5 (03:45→23:16)
[2022-03-03 03:54] LABS: HBS Num1 169.11 mIU/mL (0-7.99); HBc Num1 0.09 S/CO (0.00-0.79); HBsAGNum1 0.21 S/CO (0.00-0.99); Hepatitis A Antibody IgM 0.12 Index (0-0.79); Hepatitis B Core Antibody Nonreactive (Nonreactive); Hepatitis B Surface Antigen Negative (Negative); ~HepC Num1 0.12 S/CO (0.00-0.79); ~Hepatitis A Antibody IgM Nonreactive (Nonreactive); ~Hepatitis B Surface Antibody REACTIVE (Nonreactive); ~Hepatitis C Antibody Nonreactive (Nonreactive)
[2022-03-03] MEDS: Levothyroxine Sodium 88 MCG TABLET PO (06:35)
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
--- NOTE | 2022-03-03 08:01 | PHA.MEDREC ---
Pharmacy Consult ? Medication Reconciliation Pharmacy has completed the medication reconciliation. Patient reported all medications. Brittany Maya, EvelineD
[2022-03-03 09:50] LABS: Hematocrit 38.5 % (37.0-47.0); Hemoglobin 13.2 g/dl (12.0-16.0); Mean Corpuscular HGB Conc 34.3 g/dl (31.0-35.0); Mean Corpuscular Hemoglobin 31.3 pg (27.0-33.0); Mean Corpuscular Volume 91.2 fL (80.0-98.0); Red Blood Count 4.22 X10*6/uL (4.20-5.50); Red Cell Distribution Width 13.3 % (11.0-16.0)
--- NOTE | 2022-03-03 10:00 | MHC.CM.PN ---
Met with patient in regards to discharge planning. Patient lives with her and kids, ambulates independently and had no services prior to coming to the hospital. No services anticipated to be needed at d/c because patient is not homebound. PCP verified. Patient received 3 Covid vaccines. Patient denies having a HCP. Information provided. Patient not interested in completing HCP at this time. Patient's will transport her home when medically stable. Continue to monitor for d/c needs.
[2022-03-03 10:05] LABS: Anion Gap 10 (12-20); Blood Urea Nitrogen 7 mg/dL (9-16); Calcium 7.7 mg/dL (8.4-10.2); Carbon Dioxide 23 mmol/L (22-29); Chloride 111 mmol/L (96-108); Creatinine Clr Calc Pharmacy 100.6; Estimated Glomerular Filt Rate > 60; Glucose Random 128 mg/dL (60-115); Potassium 3.6 mmol/L (3.3-5.1); Sodium 140 mmol/L (135-145)
[2022-03-03 10:10] LABS: Alanine Aminotransferase 158 U/L (0-31); Albumin Level 3.3 g/dL (3.5-5.0); Alkaline Phosphatase 125 U/L (39-117); Aspartate Amino Transferase 72 U/L (5-31); Bilirubin Total 4.5 mg/dL (0.0-1.0); Total Protein 5.8 g/dL (6.5-8.0)
[2022-03-03 10:26] LABS: Platelet Count 84 X10*3/uL (160-400); WBC ABN SCTR FOR CBC 1
[2022-03-03 10:27] LABS: White Blood Count 7.8 X10*3/uL (4.8-10.8)
[2022-03-03 10:48] LABS: Band Neutrophils Percent 50 % (3-5); Lymphocytes Absolute Manual 0.5 X10*3/uL (1.2-4.9); Lymphocytes Percent Manual 6 % (20-40); Metamyelocytes Absolute 0.8 X10*3/uL; Metamyelocytes Percent 10 %; Monocytes Absolute Manual 0.1 X10*3/uL (0.1-1.2); Monocytes Percent Manual 1 % (2-11); Myelocytes Absolute 0.1 X10*/uL; Myelocytes Percent 1 %; Neutrophils Absolute Manual 6.4 X10*3/uL (2.0-8.3); Neutrophils Percent Manual 32 % (45-73)
[2022-03-03 10:54] LABS: RBC Morphology NORMAL
[2022-03-03 10:55] LABS: Large Platelet PRESENT; Platelet Estimate DECREASED (NORMAL); Platelet Morphology Comment NORM; Toxic Vacuolation PRESENT
--- NOTE | 2022-03-03 11:45 | PC.NURSE ---
patient a&ox3, vss, pt medicated per order, pt previously had pain medication and states her abd pain has reduced from a 10 to an 8, call thomas within reach, will continue to monitor
--- NOTE | 2022-03-03 14:21 | PC.NURSE ---
pt being transported for hida scan
--- NOTE | 2022-03-03 16:44 | PC.NURSE ---
pt is still at testing
--- NOTE | 2022-03-03 16:59 | PC.NURSE ---
per nursing right of way maintenance supervisor, nurse on floor will call to get report, pt is still in testing at this time
--- NOTE | 2022-03-03 17:30 | PC.NURSE ---
report given to floor
[2022-03-03] MEDS: 0.9 % Sodium Chloride Flush 3 ML SYRINGE IVFLUSH ×2 (17:36→21:20)
[2022-03-03] MEDS: 0.9 % Sodium Chloride 1,000 ML 125 ML IVCONT ×2 (17:36→23:17)
[2022-03-04] VITALS (7 sets, daily range): BP systolic 109–125; BP diastolic 61–79; PULSE 72–93; RESP 17–20; TEMP 36.9–38.6; O2SAT 96–99
[2022-03-04] MEDS: Piperacillin Sodium/Tazobactam 3.375 GM in 0.9 % Sodium Chloride 50 ML IV ×4 (03:30→21:17)
[2022-03-04] MEDS: Heparin Sodium,Porcine 5,000 UNIT/ML VIAL 5000 UNIT SUBCUT ×3 (03:32→21:16)
[2022-03-04] MEDS: HYDROmorphone HCl 1 MG/ML SYRINGE 0.5 MG IVPUSH ×5 (03:32→21:16)
[2022-03-04] MEDS: Levothyroxine Sodium 88 MCG TABLET PO (05:46)
[2022-03-04 08:06] LABS: Hematocrit 32.9 % (37.0-47.0); Hemoglobin 11.2 g/dl (12.0-16.0); Mean Corpuscular Hemoglobin 31.1 pg (27.0-33.0); Mean Corpuscular Volume 91.4 fL (80.0-98.0); Mean Platelet Volume 11.4 fL (9.4-12.3); Red Cell Distribution Width 13.6 % (11.0-16.0); White Blood Count 8.4 X10*3/uL (4.8-10.8)
[2022-03-04 08:10] LABS: Platelet Count 80 X10*3/uL (160-400)
[2022-03-04 08:24] LABS: Alanine Aminotransferase 95 U/L (0-31); Albumin Level 2.8 g/dL (3.5-5.0); Alkaline Phosphatase 108 U/L (39-117); Aspartate Amino Transferase 34 U/L (5-31); Bilirubin Direct 1.8 mg/dL (0.0-0.5); Bilirubin Total 2.9 mg/dL (0.0-1.0); Blood Urea Nitrogen 8 mg/dL (9-16); Calcium 7.3 mg/dL (8.4-10.2); Creatinine Clr Calc Pharmacy 95.5; Estimated Glomerular Filt Rate > 60; Glucose Random 84 mg/dL (60-115); Total Protein 5.1 g/dL (6.5-8.0)
[2022-03-04 08:32] LABS: Anion Gap 11 (12-20); Carbon Dioxide 21 mmol/L (22-29); Chloride 108 mmol/L (96-108); Potassium 2.9 mmol/L (3.3-5.1); Sodium 137 mmol/L (135-145)
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
[2022-03-04] MEDS: 0.9 % Sodium Chloride 1,000 ML 125 ML IVCONT ×2 (12:24→17:04)
[2022-03-04] MEDS: Ibuprofen 400 MG TABLET PO (12:27)
--- NOTE | 2022-03-04 16:47 | PC.NURSE ---
telephone order Zofran 4mg IVPUSH once. Per MD. Gregorio
[2022-03-04] MEDS: ondansetron HCL 4 MG/2 ML VIAL IVPUSH (16:56)
[2022-03-04] MEDS: 0.9 % Sodium Chloride Flush 3 ML SYRINGE IVFLUSH ×2 (17:01→21:17)
[2022-03-04] MEDS: KCl 20 mEq in 0.45% Sod 20 MEQ/1,000 ML IV.SOLN 125 MEQ IVCONT (18:14)
[2022-03-05] VITALS (8 sets, daily range): BP systolic 110–128; BP diastolic 58–87; PULSE 72–87; RESP 17–18; TEMP 36.6–37.2; O2SAT 96–98
[2022-03-05] MEDS: Piperacillin Sodium/Tazobactam 3.375 GM in 0.9 % Sodium Chloride 50 ML IV ×4 (03:20→22:27)
[2022-03-05] MEDS: Heparin Sodium,Porcine 5,000 UNIT/ML VIAL 5000 UNIT SUBCUT ×3 (03:20→20:04)
[2022-03-05] MEDS: HYDROmorphone HCl 1 MG/ML SYRINGE 0.5 MG IVPUSH ×2 (03:20→07:51)
[2022-03-05] MEDS: KCl 20 mEq in 0.45% Sod 20 MEQ/1,000 ML IV.SOLN 125 MEQ IVCONT ×3 (03:21→21:16)
[2022-03-05] MEDS: Levothyroxine Sodium 88 MCG TABLET PO (05:52)
[2022-03-05 06:37] LABS: Hematocrit 30.3 % (37.0-47.0); Hemoglobin 10.5 g/dl (12.0-16.0); Mean Corpuscular HGB Conc 34.7 g/dl (31.0-35.0); Mean Corpuscular Hemoglobin 31.3 pg (27.0-33.0); Mean Corpuscular Volume 90.2 fL (80.0-98.0); Mean Platelet Volume 11.4 fL (9.4-12.3); Platelet Count 90 X10*3/uL (160-400); Red Blood Count 3.36 X10*6/uL (4.20-5.50); Red Cell Distribution Width 13.7 % (11.0-16.0); White Blood Count 8.9 X10*3/uL (4.8-10.8)
[2022-03-05 07:18] LABS: Alanine Aminotransferase 70 U/L (0-31); Albumin Level 2.7 g/dL (3.5-5.0); Alkaline Phosphatase 103 U/L (39-117); Anion Gap 10 (12-20); Aspartate Amino Transferase 20 U/L (5-31); Bilirubin Direct 1.6 mg/dL (0.0-0.5); Bilirubin Total 2.4 mg/dL (0.0-1.0); Blood Urea Nitrogen 6 mg/dL (9-16); Calcium 7.4 mg/dL (8.4-10.2); Carbon Dioxide 24 mmol/L (22-29); Chloride 106 mmol/L (96-108); Creatinine Clr Calc Pharmacy 103.3; Estimated Glomerular Filt Rate > 60; Glucose Random 89 mg/dL (60-115); Sodium 137 mmol/L (135-145); Total Protein 5.1 g/dL (6.5-8.0)
[2022-03-05 07:46] LABS: INTERNATIONAL NORM RATIO 1.1 (0.9-1.1); Prothrombin Time 12.1 SEC (9.9-13.0)
[2022-03-05] MEDS: ondansetron HCL 4 MG/2 ML VIAL IVPUSH ×2 (08:01→15:51)
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
[2022-03-05] MEDS: Potassium Chloride ER 20 MEQ TAB.ER.PRT 40 MEQ PO (08:59)
--- NOTE | 2022-03-05 12:08 | MHC.CM.PN ---
PER MD ROUNDS, PT LIKELY TO BE READY TO DC OVER THE WEEKEND. DC PLAN REMAINS HOME WITH NO SERVICES FAMILY TO TRANSPORT
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
[2022-03-05] MEDS: Ibuprofen 400 MG TABLET PO (15:48)
[2022-03-05] MEDS: 0.9 % Sodium Chloride Flush 3 ML SYRINGE IVFLUSH (15:51)
[2022-03-06 03:40] VITALS: BP 118/75; PULSE 77; RESP 18; TEMP 36.6; O2SAT 98
[2022-03-06] MEDS: Heparin Sodium,Porcine 5,000 UNIT/ML VIAL 5000 UNIT SUBCUT ×2 (04:07→11:01)
[2022-03-06] MEDS: Ibuprofen 400 MG TABLET PO ×2 (04:07→13:43)
[2022-03-06] MEDS: Piperacillin Sodium/Tazobactam 3.375 GM in 0.9 % Sodium Chloride 50 ML IV ×3 (04:07→16:28)
[2022-03-06] MEDS: Levothyroxine Sodium 88 MCG TABLET PO (05:45)
[2022-03-06] MEDS: KCl 20 mEq in 0.45% Sod 20 MEQ/1,000 ML IV.SOLN 125 MEQ IVCONT (05:46)
[2022-03-06 07:41] LABS: PLT CLUMP 1; Red Cell Distribution Width 13.9 % (11.0-16.0)
[2022-03-06 07:43] LABS: Hematocrit 30.5 % (37.0-47.0); Hemoglobin 10.4 g/dl (12.0-16.0); Mean Corpuscular HGB Conc 34.1 g/dl (31.0-35.0); Mean Corpuscular Hemoglobin 30.8 pg (27.0-33.0); Mean Corpuscular Volume 90.2 fL (80.0-98.0); Mean Platelet Volume 10.6 fL (9.4-12.3); Red Blood Count 3.38 X10*6/uL (4.20-5.50)
[2022-03-06 07:50] LABS: Platelet Count 114 X10*3/uL (160-400); White Blood Count 8.2 X10*3/uL (4.8-10.8)
[2022-03-06 07:56] VITALS: BP 121/76; PULSE 71; RESP 18; TEMP 37; O2SAT 97
[2022-03-06 08:09] LABS: Alanine Aminotransferase 65 U/L (0-31); Albumin Level 2.8 g/dL (3.5-5.0); Alkaline Phosphatase 152 U/L (39-117); Aspartate Amino Transferase 38 U/L (5-31); Bilirubin Direct 1.5 mg/dL (0.0-0.5); Bilirubin Total 2.1 mg/dL (0.0-1.0); Total Protein 5.2 g/dL (6.5-8.0)
[2022-03-06] MEDS: 0.9 % Sodium Chloride Flush 3 ML SYRINGE IVFLUSH ×2 (09:35→16:31)
[2022-03-06 12:00] VITALS: BP 130/90; PULSE 67; RESP 18; TEMP 37.1; O2SAT 98
[2022-03-06 13:11] LABS: A. Phagocytphilium DNA,RT-PCR NOT DETECTED (NOT DETECTED); Babesia Microti DNA, RT-PCR NOT DETECTED (NOT DETECTED); Borrelia Miyamotoi,DNA RT-PCR NOT DETECTED (NOT DETECTED); E.Chaffeensis DNA RT-PCR NOT DETECTED (NOT DETECTED); Lyme(Borrelia ssp)DNA RT-PCR NOT DETECTED (NOT DETECTED); Source-Tick borne disease BLOOD
[2022-03-06] MEDS: Barium Sulfate Oral (Berry) 450 ML ORAL.SUSP 900 ML PO (13:48)
--- NOTE | 2022-03-06 14:43 | PM.DS ---
DS: Providers Provider Date of Service: 03/06/22 Date of admission: 03/03/22 03:21 Primary care physician: Tom Gage MD Consults: 03/03/22 03:19 Consult to Gastroenterology Routine Consulting Provider: Moira Vides Reason for consultation: Transaminitis Consult to Hematology / Oncology Routine Consulting Provider: Ed Collins Reason for consultation: Abnormal peripheral smear 03/04/22 07:23 Consult to Infectious Diseases Routine Consulting Provider: Sangeeta Chavez Reason for consultation: bacteremia Has provider been notified: No DS: Diagnosis Discharge Diagnosis (1) Gram-negative bacteremia: Status: Acute (2) Abdominal pain: Status: Resolved (3) Elevated LFTs: Status: Acute DS: Summary Hospital Course Hospital Course: Chief Complaint: Abdominal pain 41-year-old female with a past medical history of anemia, hypercholesterolemia, hypothyroidism, obesity, vitamin-D deficiency, recent history of abdominal umbilical hernia repair; presented to the hospital today with a chief complaint of abdominal pain. Patient reported that over the past 4-5 days patient has been having abdominal pain, located in the upper abdomen, associated with nausea.? Also reports having fevers and chills. Mentions she had MMR vaccine about a week ago since then she has been not feeling well. Patient denies any nausea vomiting or diarrhea.? Denies any fever chills cough, shortness of breath.? Denies any chest pain or palpitations.? Review of all other systems is negative except mentioned above ER course: Per ER team patient noted to have abdominal tenderness, diffuse, CT abdomen showed no acute intra-abdominal pathology; on labs noted to have elevated liver enzymes, T bili, alk phos; patient is afebrile, no leukocytosis; but noted to have bandemia-given empiric Zosyn.? Also noted to have abnormal peripheral smear with smudge cells as well as thrombocytopenia.? Hospital course: Abdominal pain work with CT of abd and pelvis showed mild thickening int he ileum reflecting mild enteritis, US showed showed contracted gallbladder otherwise unremarkable, HIDA is showed no cholecystitis, but evidence of imflamed liver. abdominal pain could be related to inflamed liver vs enteritis. Enteritis treatred with Abx as below E.coli bacteremia--source not clear, urine clear, bilary doesn't quite point to this either.. She has been treated with Zosyn, she is been afebrile for more than 48 hours. ID is recommending 14days aidan Ceftin Acute hepatitis--Hep A, B, C negative. check HIV negative. Liver enzymes continue to trend down..This is likely likely a viral process, Thrombocytopenia: She presented with platlet of 84 and dropped to 80 and has trended up to 114 as of today, again likely related to some viral process Elevated D-dimer > 27K -Venous doppler, VQ scan negative -repeat as outpatient and heme as outpatient if worsening HypOkalemia--oral and IV replacement History of hypothyroidism: Continue home levothyroxine History of abdominal umbilical hernia:? Patient had umbilical hernia repair on 01/29/[address] Hardy and doesn't think it has anything to do with this presentation Time Spent with Patient Time attestation: Total time spent providing and/or coordinating discharge services: Discharge coordination time: Greater than 30 minutes Quality: Safe Use of Opioids Does Pt have an Active Cancer Diagnosis on the Problem List?: No Quality: Stroke Does the patient have a stroke diagnosis?: No Physical Exam Vital Signs: Vital Signs: Last Vital Signs Temp 98.8 F 03/06/22 12:00 Pulse 67 03/06/22 12:00 Resp 18 03/06/22 12:00 BP 130/90 H 03/06/22 12:00 Pulse Ox 98 03/06/22 12:00 O2 Del Method 03/06/22 12:00 BMI result Body Mass Index 27.4 DS: Data Data Completed and Pending Labs on day of discharge: Laboratory Results - last 24 hr 03/03/22 03/06/22 03/06/22 09:39 07:30 07:30 WBC 8.2 RBC 3.38 L Hgb 10.4 L Hct 30.5 L MCV 90.2 MCH 30.8 MCHC 34.1 RDW 13.9 Plt Count 114 L D MPV 10.6 Absolute Nucleated RBC 0.000 Nucleated RBC % (auto) 0.0 Total Bilirubin 2.1 H Direct Bilirubin 1.5 H AST 38 H D ALT 65 H Alkaline Phosphatase 152 H D Total Protein 5.2 L Albumin 2.8 L A.phagocytophil DNA PCR NOT DETECTED Babesia microti DNA PCR NOT DETECTED Borrelia sp DNA (PCR) NOT DETECTED Borrelia miyamotoi (PCR) NOT DETECTED E.chaffeensis DNA (PCR) NOT DETECTED Tick-borne Disease PCR BLOOD Discharge Plan Discharge Anticipated Discharge Date/Time: 03/06/22 17:06 Patient Disposition: Home, Self-Care Discharge Diagnosis: Sepsis, bacteremia, acute hepatitis Referrals: Po,Tom Goldsmith MD [Primary Care Provider] - 1 Week Discharge Medications: New cefuroxime axetil 500 mg tablet 500 mg PO BID 14 Days Qty: 28 0RF Continued levothyroxine 88 mcg tablet 88 mcg PO .COMPLEX Qty: 90 2RF Rx Instructions: 88 mcg PO take once a day fro 6 days a week; multivitamin Tablet 1 tab PO DAILY ibuprofen 200 mg Tablet 400 mg PO Q6H PRN (Reason: Pain) ferrous sulfate 325 mg (65 mg iron) tablet 325 mg PO DAILY omega-3 fatty acids [Fish Oil Concentrate] 1,000 mg capsule 1,000 mg PO DAILY Discontinued acetaminophen [Tylenol Arthritis Pain] 650 mg tablet extended release 650 mg PO Q12H Discharge Orders: Discharge Order (Routine); Ordered 03/06/22 Ordered By: Sen Gregorio Activity on Discharge: As tolerated Stand Alone Forms: Patient Portal Discharge page Care Plan Goals: Full recovery from bacteremia, abnormal liver enzymes, low Platlet count Health Concerns: E. Coli bacteremia and Pyelonephritis Plan of Treatment: Take Ceftin as recommended Repeat CBC and LFts within a week Assessment: as above Discharge Date/Time: 03/06/22 17:50
[2022-03-06 15:19] VITALS: BP 121/76; PULSE 70; RESP 17; TEMP 37.2; O2SAT 96
[2022-03-08 08:07] LABS: HIV AB/AG Nonreactive (Nonreactive); HIV Num 1 0.05 S/CO (0.00-0.99)
== END 2022-03-06 17:50 | disposition home or self-care (01) ==
LOC: HO.ED 03-03 00:37 → HO.EDOVER 03-03 03:27 → HO.S3 03-03 16:17
PROVIDERS: Admitting Provider Hospitalist; Emergency Provider Emergency Medicine; PCP Internal Medicine; Visit Provider Internal Medicine
DX: B17.9 Acute viral hepatitis, unspecified (principal); R78.81 Bacteremia; D69.6 Thrombocytopenia, unspecified; E03.9 Hypothyroidism, unspecified; E78.00 Pure hypercholesterolemia, unspecified; E87.6 Hypokalemia; Z20.822 Contact with and (suspected) exposure to COVID-19; B96.20 Unspecified Escherichia coli [E. coli] as the cause of diseases classified elsewhere; Z98.51 Tubal ligation status; Z79.890 Hormone replacement therapy; Z79.899 Other long term (current) drug therapy
CPT/HCPCS: 36415; 74177; 76705; 78226; 78580; 80048; 80076; 80143; 81001; 82077; 83605; 83690; 83735; 84702; 85007; 85025; 85027; 85379; 85384; 85610; 86704; 86706; 86709; 86803; 87040; 87077; 87186; 87205; 87340; 87389; 87502; 87635; 87798; 87801; 93970; 96361; 96365; 96374; 96375; 99285; A9537; A9540; J0696; J1170; J2405; J2543; J3010; Q9967

== ENCOUNTER 2022-03-17 12:30 | Outpatient (REF) | payer OTHER, SELFPAY ==
[2022-03-17 13:00] LABS: Hematocrit 38.5 % (37.0-47.0); Hemoglobin 12.6 g/dl (12.0-16.0); Mean Corpuscular HGB Conc 32.7 g/dl (31.0-35.0); Mean Corpuscular Hemoglobin 30.6 pg (27.0-33.0); Mean Corpuscular Volume 93.4 fL (80.0-98.0); Mean Platelet Volume 9.7 fL (9.4-12.3); Red Blood Count 4.12 X10*6/uL (4.20-5.50); Red Cell Distribution Width 12.9 % (11.0-16.0); White Blood Count 6.4 X10*3/uL (4.8-10.8)
[2022-03-17 13:05] LABS: Platelet Count 618 X10*3/uL (160-400)
[2022-03-17 13:29] LABS: Alanine Aminotransferase 21 U/L (0-31); Alkaline Phosphatase 103 U/L (39-117); Aspartate Amino Transferase 18 U/L (5-31); Bilirubin Direct 0.3 mg/dL (0.0-0.5); Bilirubin Total 0.5 mg/dL (0.0-1.0); Total Protein 7.3 g/dL (6.5-8.0)
== END 2022-03-17 12:31 | disposition home or self-care (01) ==
LOC: HO.LAB 12:30
PROVIDERS: PCP Internal Medicine; Visit Provider Internal Medicine
DX: R79.89 Other specified abnormal findings of blood chemistry (principal)
CPT/HCPCS: 36415; 80076; 85027

== ENCOUNTER → 2022-03-22 13:44 | Outpatient (BNVA) | payer OTHER, SELFPAY | PROVIDERS: PCP Internal Medicine; Visit Provider Anesthesiology | DX: R10.2 Pelvic and perineal pain (principal); G89.29 Other chronic pain; N94.12 Deep dyspareunia; G89.4 Chronic pain syndrome | CPT/HCPCS: 99202 ==

== ENCOUNTER 2022-04-05 12:09 | Outpatient (REF) | payer OTHER, SELFPAY ==
[2022-04-05 12:18] LABS: MANUAL DIFF FLAG NO
[2022-04-05 13:12] LABS: Basophils Percent Auto 0.5 % (0-2); Eosinophils Absolute Auto 0.2 X10*3/uL (0.0-0.4); Eosinophils Percent Auto 2.4 % (0-4); Hematocrit 38.6 % (37.0-47.0); Imm Gran Abs Auto 0.02 X10*3/uL (0.00-0.03); Imm Gran Pct Auto 0.2 % (0.0-0.4); Lymphocytes Absolute Auto 2.7 X10*3/uL (1.2-4.9); Lymphocytes Percent Auto 31.9 % (20-40); Mean Corpuscular HGB Conc 33.7 g/dl (31.0-35.0); Mean Corpuscular Hemoglobin 30.8 pg (27.0-33.0); Mean Corpuscular Volume 91.5 fL (80.0-98.0); Mean Platelet Volume 10.8 fL (9.4-12.3); Monocytes Absolute Auto 0.5 X10*3/uL (0.1-1.2); Monocytes Percent Auto 5.4 % (2-11); Neutrophils Absolute Auto 4.9 x10*3/uL (2.0-8.3); Neutrophils Percent Auto 59.6 % (45-73); Platelet Count 199 X10*3/uL (160-400); Red Blood Count 4.22 X10*6/uL (4.20-5.50); Red Cell Distribution Width 13.1 % (11.0-16.0); White Blood Count 8.3 X10*3/uL (4.8-10.8)
[2022-04-05 13:37] LABS: Alanine Aminotransferase 16 U/L (0-31); Albumin Level 4.2 g/dL (3.5-5.0); Alkaline Phosphatase 62 U/L (39-117); Anion Gap 11 (12-20); Aspartate Amino Transferase 15 U/L (5-31); Bilirubin Total 0.7 mg/dL (0.0-1.0); Blood Urea Nitrogen 7 mg/dL (9-16); Calcium 8.9 mg/dL (8.4-10.2); Carbon Dioxide 24 mmol/L (22-29); Chloride 107 mmol/L (96-108); Cholesterol 205 mg/dL; Estimated Glomerular Filt Rate > 60; Glucose Random 95 mg/dL (60-115); HDL Cholesterol 41 mg/dL; LDL Cholesterol Calculated 150 mg/dl; Potassium 4.1 mmol/L (3.3-5.1); Sodium 138 mmol/L (135-145); Total Protein 7.2 g/dL (6.5-8.0); Triglycerides 74 mg/dL
[2022-04-05 14:01] LABS: Free T4 (Free Thyroxine) 1.04 ng/dL (0.71-1.85); Thyroid Stimulating Hormone 0.74 uIU/mL (0.32-4.0)
[2022-04-05 14:12] LABS: Appearance Urine CLEAR; Color Urine YELLOW; Glucose Urine UA NEG (NEG); Leukocyte Esterase Urine NEG (NEG); Nitrite Urine NEG (NEG); PH 6.5 (5.0-8.0); Urine Blood NEG (NEG); Urine Ketones NEG (NEG); Urine Protein NEG (NEG-TRACE)
[2022-04-05 14:17] LABS: Folate 12.2 ng/mL (> or = 4.0); Vitamin B12 528 pg/mL (200-900)
[2022-04-05 14:35] LABS: Squamous Epithelial Cell Urine 1+ /LPF
[2022-04-05 14:36] LABS: Bacteria Urine TRACE /LPF; RBC Urine 0-2 /HPF (0); WBC Urine 0-2 /HPF (0-4)
[2022-04-06 08:04] LABS: HBS Num1 423.08 mIU/mL (0-7.99); HBc Num1 0.11 S/CO (0.00-0.79); HBsAGNum1 0.15 S/CO (0.00-0.99); Hepatitis A Antibody IgM 0.16 Index (0-0.79); Hepatitis B Core Antibody Nonreactive (Nonreactive); Hepatitis B Surface Antigen Negative (Negative); ~HepC Num1 0.12 S/CO (0.00-0.79); ~Hepatitis A Antibody IgM Nonreactive (Nonreactive); ~Hepatitis B Surface Antibody REACTIVE (Nonreactive); ~Hepatitis C Antibody Nonreactive (Nonreactive)
== END 2022-04-05 12:10 | disposition home or self-care (01) ==
LOC: HO.LAB 12:09
PROVIDERS: Nurse Practitioner Family; PCP Internal Medicine; Visit Provider Internal Medicine
DX: E03.9 Hypothyroidism, unspecified (principal); E78.00 Pure hypercholesterolemia, unspecified; R79.89 Other specified abnormal findings of blood chemistry
CPT/HCPCS: 36415; 80053; 80061; 81001; 82306; 82607; 82746; 84439; 84443; 85025; 86704; 86706; 86709; 86803; 87340

== ENCOUNTER 2022-07-28 12:05 | Outpatient (REF) | payer OTHER, SELFPAY ==
--- NOTE | ~2022-07-28 | MM_ITS ---
EXAMINATION: MM SCREENING DIGITAL BREAST TOMOSYNTHESIS, BILATERAL CLINICAL INFORMATION: Screening. Asymptomatic. No prior mammography. Age 42. No known family history breast cancer. COMPARISON: None (current study represents initial baseline exam). TECHNIQUE: Digital breast tomosynthesis is performed in both the craniocaudal and mediolateral oblique views along with computer-aided detection (CAD). Synthesized 2D images are generated from the tomosynthesis. FINDINGS: There are scattered areas of fibroglandular density (ACR BI-RADS breast composition Category b). There are no significant masses, abnormal calcifications, or other abnormalities. No architectural abnormality. The axilla and skin contours are unremarkable. MM/MM tomosynthesis screening BI IMPRESSION: No mammographic evidence of malignancy. ASSESSMENT: BI-RADS 1: Negative RECOMMENDATION: Routine annual mammography screening. This patient's information was entered into a reminder system with a target due date for their next mammogram.
== END 2022-07-28 12:06 | disposition home or self-care (01) ==
LOC: HO.MAMMO 12:05
PROVIDERS: Visit Provider Internal Medicine
DX: Z12.31 Encounter for screening mammogram for malignant neoplasm of breast (principal)
CPT/HCPCS: 77063; 77067

== ENCOUNTER 2023-04-12 11:07 | Outpatient (AMB) | payer OTHER, SELFPAY ==
[2023-04-12 11:14] VITALS: BP 108/68; PULSE 72; O2SAT 98; BMI 32.4
--- NOTE | 2023-04-12 11:14 | MHC.PC.OV ---
Vital Signs 04/12/23 11:14 Height 5 ft Weight 166 lb BMI 32.4 BP 108/68 Blood Pressure Location Lt brachial Position Sitting Pulse 72 Pulse Source Pulse Oximeter Pulse Oximetry (%) 98 Oxygen Delivery Method Room Air Intake Visit Reasons: Annual Exam Allergies No Known Allergies Allergy (Verified 04/12/23 11:14) Medication List - Last Reconciled 04/12/23 by Tom Gage MD ferrous sulfate 325 mg PO DAILY levothyroxine 88 mcg PO take once a day fro 6 days a week; Tobacco use date assessed: 04/12/23 Dental Screening Dental Screen Date: 04/12/23 Did you have a dental visit in the last 12 months?: Yes Did you have a dental problem in the last 6 months where you did not have access to dental care?: No Was dental information given to patient?: Patient has dentist HPI Annual Exam HPI Details 43-year-old obese female with hypercholesterolemia hypothyroidism last seen in June 2022 patient is here for physical exam [facility] Medical History (Updated 04/12/23 @ 11:41 by Tom Gage MD) Anemia HPV test positive Hypercholesterolemia Hypothyroidism Obesity (BMI 30-39.9) Vitamin D deficiency Surgical History (Updated 04/05/22 @ 11:42 by Tom Gage MD) History of History of endometrial ablation History of umbilical hernia repair Tubal ligation status Family History (Updated 04/12/23 @ 11:15 by Aishwarya Faulkner [facility]) Father Diabetes HTN (hypertension) High cholesterol Myocardial infarct Mother Lymphoma Maternal Aunt Colon cancer Social History (Updated 04/12/23 @ 11:32 by Tom Gage MD) Household Members: Spouse, Family and Children Housing: House Do you presently have visiting nurse or other home services: No Alcohol intake: current Patient Tobacco Use Status: Never used Tobacco e-Cigarette/Vaping Use: Never Used Second Hand Smoke Exposure: No service: No Current occupational status: employed Cognitive needs: No Hearing needs: No Vision needs: Yes Female Reproductive History Menstrual Age of Menarche: 11 Questionnaire PHQ-9 Over the last 2 weeks, how often have you been bothered by any of the following problems? 1. Little interest or pleasure in doing things: not at all 2. Feeling down, depressed, or hopeless: not at all 3. Trouble falling or staying asleep, or sleeping too much: not at all 4. Feeling tired or having little energy: not at all 5. Poor appetite or overeating: not at all 6. Feeling bad about yourself - or that you are a failure or have let yourself or your family down: not at all 7. Trouble concentrating on things, such as reading the newspaper or watching television: not at all 8. Moving or speaking so slowly that other people could have noticed. Or the opposite - being so fidgety or restless that you have been moving around a lot more than usual: not at all 9. Thoughts that you would be better off or of hurting yourself in some way: not at all Total score: 0 Depression Screening Interpretation: Negative Source: Developed by Drs. Gunnar La, Haley Moran, Yimi Patton and colleagues, with an educational markie from [employer]. Thrive Questionnaire Date Thrive assessed: 04/12/23 I am a: Patient What is your living situation today?: I have a steady place to live Within the past 12 months, did the food you bought not last and you didn't have the money to get more?: Never true Within the past 12 months, did you worry whether your food would run out before you got money to buy more?: Never true Do you have trouble paying for medicines?: No Do you have trouble getting transportation to medical appointments?: No Do you have trouble paying your heating and electricity bill?: No Do you have trouble taking care of your child, family member or friend?: No Do you have trouble with day-to-day activities such as bathing, preparing meals, shopping, managing finances, etc.?: No Are you currently unemployed and looking for a job?: No Are you interested in more education?: No Currently or been in a relationship where the following occur: no concerns reported AUDIT C Alcohol Use Questionnaire (AUDIT-C) 1. How often do you have a drink containing alcohol?: Monthly or less 2. How many drinks containing alcohol do you have on a typical day when you are drinking?: 1 or 2 3. How often do you have six or more drinks on one occasion?: Never Total Score: 1 SWETHA-7 AMB Questionnaire SWETHA-7 Date SWETHA - 7 assessed: 04/12/23 Feeling nervous, anxious, or on edge: 0 = Not at all Not being able to stop or control worryin = Not at all Worrying too much about different things: 0 = Not at all Trouble relaxin = Not at all Being so restless that it is hard to sit still: 0 = Not at all Becoming easily annoyed or irritable: 0 = Not at all Feeling afraid as if something awful might happen: 0 = Not at all Total SWETHA-7 score (0-4 normal; 5-9 mild; 10-14 moderate; 15-21 severe): 0 Source: Developed by Drs. Gunnar La, Haley Moran, Yimi Patton and colleagues, with an educational markie from [employer]. Review of Systems Const Denies poor appetite and Denies weakness Eyes Denies no additional complaints ENT Reports Normal hearing present Card Denies chest pain, Denies syncope, Denies rapid heart rate and Denies dyspnea Resp Denies cough and Denies dyspnea GI Denies change in stool character, Reports constipation, Denies diarrhea, Denies nausea and Denies vomiting Denies urinary frequency, Denies difficulty voiding and Denies dysuria Neuro Reports Normal hearing present, Denies confusion, Denies syncope and Denies weakness Psych Denies confusion Physical exam (Primary Care) Vital Signs: Last Vital Signs Pulse 72 04/12/23 11:14 BP 108/68 04/12/23 11:14 Pulse Ox 98 04/12/23 11:14 Oxygen Delivery Method Room Air 04/12/23 11:14 BMI result Body Mass Index 32.4 Tobacco/Smoking Status: Tobacco use Status Tobacco use date assessed 04/12/23 04/12/23 11:18 Patient Tobacco Use Status Never used Tobacco 04/12/23 11:18 Tobacco use type 11/03/21 11:55 e-Cigarette/Vaping Use Never Used 04/12/23 11:18 PHQ-9: PHQ-9 Score PHQ-9: Total score 0 04/12/23 11:18 Depression Screening Interpretation: Negative Thrive Assessment: Date of Thrive Assessment Date Thrive assessed 04/12/23 04/12/23 11:18 Currently or been in a relationship where the following occur: no concerns reported Const General: alert and awake; No confusion Orientation/consciousness: No confusion HENMT Head: Yes normocephalic Ears: external ears normal and TM's normal bilaterally Face and sinus: Yes normal facial exam Mouth: moist mucous membranes Throat: Yes tonsils normal Eyes Conjunctivae: conjunctivae normal Pupils: Equal, round and reactive pupils present and Pupil accommodation reflex normal Direct Ophthalmoscopy: normal light reflex Neck Neck: No lymphadenopathy Thyroid: Thyroid normal Chest Chest palpation & inspection: normal inspection of the chest Resp Effort & Inspection: normal respiratory effort and no audible wheezes Auscultation: clear to auscultation bilaterally, no crackles, no wheezes and lung sounds not diminished Cardio Rate: regular rate Rhythm: regular rhythm Peripheral pulses: radial pulses present and dorsalis pedis present GI Palpation (GI): no masses Auscultation: normal bowel sounds and normoactive bowel sounds Rectal Exam - Female: deferred Skin General skin exam: no rashes or lesions noted Rashes: no rashes Neuro General: deep tendon reflexes 2+ bilaterally and No confusion Cranial nerves: Yes Equal, round and reactive pupils present, Yes Midline tongue present, Yes Normal hearing present and Yes Ability to bilaterally elevate shoulders present Cognition (Neuro): normal cognition Gait exam (Neuro): Normal gait present Motor exam (neuro): 5/5 motor strength present throughout Deep tendon reflexes (DTR's): Right brachioradialis reflex intensity grade: 2+, Left brachioradialis reflex intensity grade: 2+, Right patellar reflex intensity grade: 2+ and Left patellar reflex intensity grade: 2+ Extrem General: No edema Assessment and Plan Assessment & Plan (1) Annual physical exam: Code(s): Z00.00 - Encounter for general adult medical examination without abnormal findings (2) Hypercholesterolemia: Code(s): E78.00 - Pure hypercholesterolemia, unspecified Plan: Avoid fried foods, chicken skin, eggs, butter margarine, pastries and meat. Be it pork or beef they have a lot of cholesterol LDL goal of less than 130 and triglyceride of less than 150 blood work requested (3) Obesity (BMI 30-39.9): Code(s): E66.9 - Obesity, unspecified Plan: Diet and exercise (4) Hypothyroidism: Comment: hyperthyroidism status post iodine ablation Code(s): E03.9 - Hypothyroidism, unspecified Qualifiers: Hypothyroidism type: acquired Qualified Code(s): E03.9 - Hypothyroidism, unspecified Plan: Continue with thyroid medication blood work requested (5) Cervical cancer screening: Code(s): Z12.4 - Encounter for screening for malignant neoplasm of cervix Plan: Gynecology referral done Orders: Orders Vitamin B12 and Folate Today E03.9 - Hypothyroidism, unspecified Comprehensive Met. Panel Today E78.00 - Pure hypercholesterolemia, unspecified Lipid Panel Today E78.00 - Pure hypercholesterolemia, unspecified Free T4 (Free Thyroxine) Today E03.9 - Hypothyroidism, unspecified Thyroid Stimulating Hormone Today E03.9 - Hypothyroidism, unspecified Complete Blood Count Auto Diff Today E03.9 - Hypothyroidism, unspecified T Spot TB Today Z00.00 - Encounter for general adult medical examination without abnormal findings Referrals [facility] Referral Z12.4 - Encounter for screening for malignant neoplasm of cervix Coding Level of Care Code Est Pt Prev Care 40-64y(37513) Diagnoses Annual physical exam Z00.00 Hypercholesterolemia E78.00 Obesity (BMI 30-39.9) E66.9 Hypothyroidism E03.9 Hypothyroidism type: acquired Cervical cancer screening Z12.4
== END 2023-04-12 11:54 | disposition home or self-care (01) ==
PROVIDERS: PCP Internal Medicine; Visit Provider Internal Medicine
DX: Z00.00 Encounter for general adult medical examination without abnormal findings (principal); E66.9 Obesity, unspecified; Z68.32 Body mass index [BMI] 32.0-32.9, adult; E03.9 Hypothyroidism, unspecified; E78.00 Pure hypercholesterolemia, unspecified
CPT/HCPCS: 99396

== ENCOUNTER 2023-04-18 07:13 | Outpatient (REF) | payer OTHER, SELFPAY ==
[2023-04-18 07:24] LABS: MANUAL DIFF FLAG NO
[2023-04-18 08:25] LABS: Basophils Percent Auto 0.4 % (0-2); Eosinophils Absolute Auto 0.2 X10*3/uL (0.0-0.4); Eosinophils Percent Auto 2.5 % (0-4); Hematocrit 40.4 % (37.0-47.0); Hemoglobin 13.5 g/dl (12.0-16.0); Imm Gran Abs Auto 0.02 X10*3/uL (0.00-0.03); Imm Gran Pct Auto 0.3 % (0.0-0.4); Lymphocytes Absolute Auto 3.8 X10*3/uL (1.2-4.9); Lymphocytes Percent Auto 49.7 % (20-40); Mean Corpuscular HGB Conc 33.4 g/dl (31.0-35.0); Mean Corpuscular Hemoglobin 31.3 pg (27.0-33.0); Mean Corpuscular Volume 93.7 fL (80.0-98.0); Mean Platelet Volume 10.6 fL (9.4-12.3); Monocytes Absolute Auto 0.6 X10*3/uL (0.1-1.2); Monocytes Percent Auto 7.7 % (2-11); Neutrophils Percent Auto 39.4 % (45-73); Platelet Count 259 X10*3/uL (160-400); Red Blood Count 4.31 X10*6/uL (4.20-5.50); Red Cell Distribution Width 12.8 % (11.0-16.0); White Blood Count 7.6 X10*3/uL (4.8-10.8)
[2023-04-18 09:07] LABS: Alanine Aminotransferase 18 U/L (0-31); Albumin Level 4.3 g/dL (3.5-5.0); Alkaline Phosphatase 58 U/L (39-117); Anion Gap 11 (12-20); Aspartate Amino Transferase 18 U/L (5-31); Bilirubin Total 0.4 mg/dL (0.0-1.0); Blood Urea Nitrogen 10 mg/dL (9-16); Calcium 9.2 mg/dL (8.4-10.2); Carbon Dioxide 26 mmol/L (22-29); Chloride 107 mmol/L (96-108); Cholesterol 195 mg/dL; Estimated Glomerular Filt Rate > 60; Glucose Random 85 mg/dL (60-115); HDL Cholesterol 44 mg/dL; LDL Cholesterol Calculated 130 mg/dl; Potassium 3.6 mmol/L (3.3-5.1); Sodium 140 mmol/L (135-145); Total Protein 7.4 g/dL (6.5-8.0); Triglycerides 109 mg/dL
[2023-04-18 09:11] LABS: Free T4 (Free Thyroxine) 0.86 ng/dL (0.71-1.85); Thyroid Stimulating Hormone 14.03 uIU/mL (0.32-4.0)
[2023-04-18 09:29] LABS: Folate 11.6 ng/mL (> or = 4.0); Vitamin B12 491 pg/mL (200-900)
[2023-04-20 22:59] LABS: TS Negative Control Passed; TS Panel A 1; TS Panel B 0; TS Positive Control Passed; TSpotTB Negative (Negative)
== END 2023-04-18 07:14 | disposition home or self-care (01) ==
LOC: HO.LAB 07:13
PROVIDERS: PCP Internal Medicine; Visit Provider Internal Medicine
DX: Z00.00 Encounter for general adult medical examination without abnormal findings (principal); Z11.1 Encounter for screening for respiratory tuberculosis; E03.9 Hypothyroidism, unspecified; E78.00 Pure hypercholesterolemia, unspecified
CPT/HCPCS: 36415; 80053; 80061; 82607; 82746; 84439; 84443; 85025; 86481

== ENCOUNTER 2023-06-03 07:10 | Outpatient (AMB) | payer OTHER, SELFPAY ==
--- NOTE | 2023-06-03 07:11 | MHC.PC.OV ---
Intake Visit Reasons: Android/[phone]/Anxiety Allergies No Known Allergies Allergy (Verified 06/03/23 07:11) Tobacco use date assessed: 04/12/23 Dental Screening Dental Screen Date: 06/03/23 Did you have a dental visit in the last 12 months?: Yes Did you have a dental problem in the last 6 months where you did not have access to dental care?: No Was dental information given to patient?: Patient has dentist HPI HPI Comments History of Present Illness Details 43-year-old female past medical history significant for hypothyroidism, hypercholesteremia and thrombocytopenia. Patient last seen in March. Patient presents today for a telehealth appointment for anxiety. Patient reports she is currently going through divorce. Patient states feels anxious, start crying and her heart will start to racing heart, and chest tight. Patient's swetha 7 showed mild anxiety. Patient requesting to start on medication as needed for anxiety episodes. Discuss counseling referral however patient declines at this time she states she feels like this is all just situational anxiety related to her going through divorce. [facility] Medical History (Updated 06/03/23 @ 07:24 by TAMRA Davis) HPV test positive Vitamin D deficiency Hypercholesterolemia Obesity (BMI 30-39.9) Hypothyroidism Anemia Surgical History (Updated 04/05/22 @ 11:42 by Tom Gage MD) History of umbilical hernia repair History of History of endometrial ablation Tubal ligation status Family History (Updated 04/12/23 @ 11:15 by Aishwarya Faulkner CMA) Father Diabetes HTN (hypertension) High cholesterol Myocardial infarct Mother Lymphoma Maternal Aunt Colon cancer Social History (Updated 04/12/23 @ 11:32 by Tom Gage MD) Household Members: Spouse, Family and Children Housing: House Do you presently have visiting nurse or other home services: No Alcohol intake: current Patient Tobacco Use Status: Never used Tobacco e-Cigarette/Vaping Use: Never Used Second Hand Smoke Exposure: No service: No Current occupational status: employed Cognitive needs: No Hearing needs: No Vision needs: Yes Female Reproductive History Menstrual Age of Menarche: 11 Questionnaire PHQ-9 Over the last 2 weeks, how often have you been bothered by any of the following problems? 1. Little interest or pleasure in doing things: more than half the days 2. Feeling down, depressed, or hopeless: more than half the days 3. Trouble falling or staying asleep, or sleeping too much: more than half the days 4. Feeling tired or having little energy: more than half the days 5. Poor appetite or overeating: not at all 6. Feeling bad about yourself - or that you are a failure or have let yourself or your family down: not at all 7. Trouble concentrating on things, such as reading the newspaper or watching television: not at all 8. Moving or speaking so slowly that other people could have noticed. Or the opposite - being so fidgety or restless that you have been moving around a lot more than usual: not at all 9. Thoughts that you would be better off or of hurting yourself in some way: not at all Total score: 8 Depression Screening Interpretation: Positive Source: Developed by Drs. Gunnar La, Haley Moran, Yimi Patton and colleagues, with an educational markie from [employer]. Thrive Questionnaire Date Thrive assessed: 04/12/23 AUDIT C Alcohol Use Questionnaire (AUDIT-C) 1. How often do you have a drink containing alcohol?: Monthly or less 2. How many drinks containing alcohol do you have on a typical day when you are drinking?: 1 or 2 3. How often do you have six or more drinks on one occasion?: Never Total Score: 1 SWETHA-7 AMB Questionnaire SWETHA-7 Date SWETHA - 7 assessed: 06/03/23 Feeling nervous, anxious, or on edge: 2 = More than half the days Not being able to stop or control worryin = More than half the days Worrying too much about different things: 2 = More than half the days Trouble relaxin = More than half the days Being so restless that it is hard to sit still: 0 = Not at all Becoming easily annoyed or irritable: 1 = Several days Feeling afraid as if something awful might happen: 0 = Not at all Total SWETHA-7 score (0-4 normal; 5-9 mild; 10-14 moderate; 15-21 severe): 9 Source: Developed by Drs. Gunnar La, Haley Moran, Yimi Patton and colleagues, with an educational markie from [employer]. SWETHA-7 Assessment Billing SWETHA-7 Assessment Tool: SWETHA-7 Assessment 20186 Review of Systems Const Denies chills, Denies fatigue, Denies fever(s) and Denies poor appetite Eyes Denies no additional complaints ENT Reports Normal hearing present Card Denies chest pain, Denies syncope, Denies rapid heart rate and Denies dyspnea Resp Denies cough and Denies dyspnea GI Denies change in stool character, Denies constipation, Denies diarrhea, Denies nausea and Denies vomiting Denies urinary frequency, Denies dysuria and Denies urinary urgency Neuro Reports Normal hearing present, Denies confusion and Denies syncope Psych Denies confusion Endo Denies fatigue Physical exam (Primary Care) Tobacco/Smoking Status: Tobacco use Status Tobacco use date assessed 04/12/23 06/03/23 07:12 Patient Tobacco Use Status Never used Tobacco 06/03/23 07:12 Tobacco use type 11/03/21 11:55 e-Cigarette/Vaping Use Never Used 06/03/23 07:12 PHQ-9: PHQ-9 Score PHQ-9: Total score 8 06/03/23 07:12 Depression Screening Interpretation: Positive Thrive Assessment: Date of Thrive Assessment Date Thrive assessed 04/12/23 06/03/23 07:12 Const General: No confusion Orientation/consciousness: No confusion Neuro General: No confusion Cranial nerves: Yes Normal hearing present Telehealth Telehealth Location of provider rendering services: practice address Location of patient: other Patient Identification confirmed using: Name, : Yes Telehealth method: video (Android) Patient verbally consented to treatment: Yes Patient verbally consented to billing insurance company: Yes Patient informed of any privacy concerns related to visit: Yes Assessment and Plan Assessment & Plan (1) Generalized anxiety disorder: Code(s): F41.1 - Generalized anxiety disorder Plan: Hydroxyzine 25 mg t.i.d. as needed for anxiety sent to patient's pharmacy. Patient declined counseling referral at this time. Follow-up in 3 months or sooner if needed. (2) Hypercholesterolemia: Code(s): E78.00 - Pure hypercholesterolemia, unspecified Plan: Continue to follow low-cholesterol diet. (3) Hypothyroidism: Comment: hyperthyroidism status post iodine ablation Code(s): E03.9 - Hypothyroidism, unspecified Qualifiers: Hypothyroidism type: acquired Qualified Code(s): E03.9 - Hypothyroidism, unspecified Plan: Continue on levothyroxine. Patient advised to get repeat lab work drawn as TSH was elevated back in March to ensure this has normalized. Plan Follow up in 3 months. Medications: New hydroxyzine HCl 25 mg PO TID PRN 30 tabs 0RF anxiety F41.1 - Generalized anxiety disorder Coding Level of Care Code Est Pt Level 3 (68828) Diagnoses Generalized anxiety disorder F41.1 Hypercholesterolemia E78.00 Acquired hypothyroidism E03.9 Hypothyroidism type: acquired Additional Codes SWETHA-7 Assessment Billing - SWETHA-7 Assessment Tool: SWETHA-7 Assessment [id number] ([id number])
== END 2023-06-03 08:31 | disposition home or self-care (01) ==
PROVIDERS: PCP Internal Medicine; Visit Provider Nurse Practitioner Family
DX: F41.1 Generalized anxiety disorder (principal); E78.00 Pure hypercholesterolemia, unspecified; E03.9 Hypothyroidism, unspecified
CPT/HCPCS: 99213

== ENCOUNTER 2023-06-03 13:53 | Outpatient (REF) | payer OTHER, SELFPAY ==
[2023-06-03 15:34] LABS: Alanine Aminotransferase 13 U/L (0-31); Albumin Level 4.2 g/dL (3.5-5.0); Alkaline Phosphatase 57 U/L (39-117); Anion Gap 9 (12-20); Aspartate Amino Transferase 14 U/L (5-31); Bilirubin Total 0.8 mg/dL (0.0-1.0); Blood Urea Nitrogen 7 mg/dL (9-16); Calcium 9.8 mg/dL (8.4-10.2); Carbon Dioxide 27 mmol/L (22-29); Chloride 107 mmol/L (96-108); Cholesterol 196 mg/dL (<200); Estimated Glomerular Filt Rate > 60; Glucose Random 150 mg/dL (60-115); HDL Cholesterol 38 mg/dL (>40); LDL Cholesterol Calculated 141 mg/dL (<100); Potassium 3.5 mmol/L (3.3-5.1); Sodium 139 mmol/L (135-145); Total Protein 7.2 g/dL (6.5-8.0); Triglycerides 87 mg/dL (<150)
[2023-06-03 15:40] LABS: Thyroid Stimulating Hormone 1.77 uIU/mL (0.32-4.0)
== END 2023-06-03 13:54 | disposition home or self-care (01) ==
LOC: HO.LAB 13:53
PROVIDERS: PCP Internal Medicine; Visit Provider Internal Medicine
DX: E03.9 Hypothyroidism, unspecified (principal); E78.00 Pure hypercholesterolemia, unspecified
CPT/HCPCS: 36415; 80053; 80061; 84439; 84443

== ENCOUNTER 2023-06-08 14:02 | Outpatient (AMB) | payer OTHER, SELFPAY ==
--- NOTE | 2023-06-08 14:05 | A.OFFPC_ITS ---
Vital Signs 06/08/23 14:06 Height 5 ft Weight 164 lb BMI 32.0 BP 102/62 Blood Pressure Location Lt brachial Position Sitting Pulse 65 Pulse Source Pulse Oximeter Pulse Oximetry (%) 98 Oxygen Delivery Method Room Air Intake Visit Reasons: lab results per Dr Gage Allergies No Known Allergies Allergy (Verified 06/03/23 07:11) Tobacco use date assessed: 04/12/23 Dental Screening Dental Screen Date: 06/08/23 Did you have a dental visit in the last 12 months?: Yes Did you have a dental problem in the last 6 months where you did not have access to dental care?: No Was dental information given to patient?: Patient has dentist HPI lab results per Dr Gage HPI Details 43-year-old obese female with hyperchole sterolemia hypothyroidism coming in for follow-up. Last seen in March 2023 for physical exam blood work was requested.. Review of the notes was seen by the nurse practitioner in June 03 through Telehealth going through a divorce and has been very anxious patient has been placed on hydroxyzine. [facility] Medical History (Updated 06/08/23 @ 14:13 by Tom Gage MD) HPV test positive Vitamin D deficiency Hypercholesterolemia Obesity (BMI 30-39.9) Hypothyroidism Anemia Surgical History (Updated 04/05/22 @ 11:42 by Tom Gage MD) History of umbilical hernia repair History of History of endometrial ablation Tubal ligation status Family History (Updated 04/12/23 @ 11:15 by Aishwarya Faulkner CMA) Father Diabetes HTN (hypertension) High cholesterol Myocardial infarct Mother Lymphoma Maternal Aunt Colon cancer Social History (Updated 04/12/23 @ 11:32 by Tom Gage MD) Household Members: Spouse, Family and Children Housing: House Do you presently have visiting nurse or other home services: No Alcohol intake: current Patient Tobacco Use Status: Never used Tobacco e-Cigarette/Vaping Use: Never Used Second Hand Smoke Exposure: No service: No Current occupational status: employed Cognitive needs: No Hearing needs: No Vision needs: Yes Female Reproductive History Menstrual Age of Menarche: 11 Questionnaire PHQ-9 Over the last 2 weeks, how often have you been bothered by any of the following problems? 1. Little interest or pleasure in doing things: more than half the days 2. Feeling down, depressed, or hopeless: more than half the days 3. Trouble falling or staying asleep, or sleeping too much: more than half the days 4. Feeling tired or having little energy: more than half the days 5. Poor appetite or overeating: not at all 6. Feeling bad about yourself - or that you are a failure or have let yourself or your family down: not at all 7. Trouble concentrating on things, such as reading the newspaper or watching television: not at all 8. Moving or speaking so slowly that other people could have noticed. Or the opposite - being so fidgety or restless that you have been moving around a lot more than usual: not at all 9. Thoughts that you would be better off or of hurting yourself in some way: not at all Total score: 8 Depression Screening Interpretation: Positive Source: Developed by Drs. Gunnar La, Haley Moran, Yimi Patton and colleagues, with an educational marike from [employer] Thrive Questionnaire Date Thrive assessed: 04/12/23 AUDIT C Alcohol Use Questionnaire (AUDIT-C) 1. How often do you have a drink containing alcohol?: Monthly or less 2. How many drinks containing alcohol do you have on a typical day when you are drinking?: 1 or 2 3. How often do you have six or more drinks on one occasion?: Never Total Score: 1 SWETHA-7 AMB Questionnaire SWETHA-7 Date SWETHA - 7 assessed: 06/03/23 Source: Developed by Drs. Gunnar La, Haley Moran, Yimi Patton and colleagues, with an educational markie from [employer] Physical exam (Primary Care) Vital Signs: Last Vital Signs Pulse 65 06/08/23 14:06 BP 102/62 06/08/23 14:06 Pulse Ox 98 06/08/23 14:06 Oxygen Delivery Method Room Air 06/08/23 14:06 BMI result Body Mass Index 32.0 Tobacco/Smoking Status: Tobacco use Status Tobacco use date assessed 04/12/23 06/08/23 14:09 Patient Tobacco Use Status Never used Tobacco 06/08/23 14:09 Tobacco use type 11/03/21 11:55 e-Cigarette/Vaping Use Never Used 06/08/23 14:09 PHQ-9: PHQ-9 Score PHQ-9: Total score 8 06/08/23 14:13 Depression Screening Interpretation: Positive Thrive Assessment: Date of Thrive Assessment Date Thrive assessed 04/12/23 06/08/23 14:09 Const General: alert; No acute distress Eyes Conjunctivae: conjunctivae normal Resp Auscultation: clear to auscultation bilaterally Cardio Rate: regular rate Rhythm: regular rhythm GI Inspection: Yes normal to inspection Extrem General: Yes normal to inspection and No edema Results AMB Hemoglobin A1c AMB Hemoglobin A1c 5.2 % Last Edit by Aishwarya Faulkner CMA on 06/08/23 14 :24 Assessment and Plan Assessment & Plan (1) Obesity (BMI 30-39.9): Code(s): E66.9 - Obesity, unspecified Plan: Diet and exercise (2) Hypothyroidism: Comment: hyperthyroidism status post iodine ablation Code(s): E03.9 - Hypothyroidism, unspecified Qualifiers: Hypothyroidism type: acquired Qualified Code(s): E03.9 - Hypothyroidism, unspecified Plan: Continue with the thyroid medication TSH from the blood work is therapeutic (3) Elevated blood sugar: Code(s): R73.9 - Hyperglycemia, unspecified Plan: Decrease the amount of carbohydrate intake, pasta, bread, rice and potatoes are all sugar and that is aside from all the sweet stuff, remember that fruits are good but they are Sweet also. Patient states that the blood work was not fasting and hemoglobin A1c is in the normal range. Will just retest at another time (4) Generalized anxiety disorder: Comment: Declined counseling Code(s): F41.1 - Generalized anxiety disorder Plan: Continuing with hydroxyzine p.r.n. (5) Hypercholesterolemia: Code(s): E78.00 - Pure hypercholesterolemia, unspecified Plan: Avoid fried foods, chicken skin, eggs, butter margarine, pastries and meat. Be it pork or beef they have a lot of cholesterol patient states the blood work was not fasting. Will check the blood work another time. Orders: Orders AMB Hemoglobin A1c Today Z13.9 - Encounter for screening, unspecified Coding Level of Care Code Est Pt Level 4 (00241) Diagnoses Obesity (BMI 30-39.9) E66.9 Acquired hypothyroidism E03.9 Hypothyroidism type: acquired Elevated blood sugar R73.9 Generalized anxiety disorder F41.1 Hypercholesterolemia E78.00
[2023-06-08 14:06] VITALS: BP 102/62; PULSE 65; O2SAT 98; BMI 32.0
== END 2023-06-08 15:07 | disposition home or self-care (01) ==
PROVIDERS: PCP Internal Medicine; Visit Provider Internal Medicine
DX: E03.9 Hypothyroidism, unspecified (principal); E66.9 Obesity, unspecified; R73.9 Hyperglycemia, unspecified; Z68.32 Body mass index [BMI] 32.0-32.9, adult; F41.1 Generalized anxiety disorder; E78.00 Pure hypercholesterolemia, unspecified
CPT/HCPCS: 83036; 99214

== ENCOUNTER 2023-06-22 08:35 | Emergency (ER) | payer OTHER, SELFPAY ==
--- NOTE | ~2023-06-22 | CT_ITS ---
EXAMINATION: CT ABDOMEN AND PELVIS WITH CONTRAST CLINICAL INFORMATION: History of colitis abdominal pain and diarrhea COMPARISON: 03/06/2022 TECHNIQUE: Multidetector volumetric images were obtained from the superior aspect of the liver through the pubic symphysis following administration 85 mL of Omnipaque 350 intravenous contrast. Sagittal and coronal reformatted images were obtained on the technologist's workstation. Oral contrast: None This CT examination was performed using dose optimization techniques as appropriate, variously including the following: *Automated exposure control *Adjustment of mA and/or kV according to patient size (this includes techniques or standardized protocols for targeted exams where dose is matched to indication/reason for exam; i.e. extremities or head) *Use of iterative reconstruction technique DLP: 512 mGy-cm FINDINGS: LUNG BASES: There are bilateral dependent atelectasis. LIVER, GALLBLADDER, AND BILIARY TREE: The liver is normal in size, shape, and attenuation. No focal hepatic lesion or biliary ductal dilatation is present. The gallbladder is unremarkable with no evidence of radiopaque gallstones, gallbladder wall thickening, or obvious pericholecystic inflammatory changes. PANCREAS: Unremarkable. SPLEEN: Unremarkable. ADRENAL GLANDS: Unremarkable. KIDNEYS AND URETERS: The kidneys are normal in size, shape, and attenuation. No hydronephrosis, hydroureter, or calculi seen. No perinephric stranding. BLADDER: Unremarkable. GASTROINTESTINAL TRACT: There is circumferential thickening of the terminal ileum and ileocecal valve normal appendix visualized. Ascending colon, transverse colon, descending colon, sigmoid colon are unremarkable. ABDOMINAL WALL: No significant hernia is appreciated. LYMPH NODES: Normal. VASCULAR: Unremarkable. PELVIC VISCERA: The multiple follicles in both ovaries. There is possibly arcate uterus. OSSEOUS STRUCTURES: Unremarkable. CT/CT abdomen pelvis w IV con IMPRESSION: Circumferential thickening of the terminal ileum and ileocecal valve, Correlate clinically for inflammatory bowel disease such as Crohn's disease. Fleischner guidelines were followed.
[2023-06-22 08:40] VITALS: BP 109/76; PULSE 106; RESP 18; TEMP 36.6; O2SAT 97; BMI 31.2
--- NOTE | 2023-06-22 09:32 | ED.ABDPAIN ---
HPI - Abdominal Pain General Chief Complaint: Abdominal Pain Stated Complaint: Flu Like Symptoms Time Seen by Provider: 06/22/23 09:11 Source: patient Mode of arrival: ambulatory Limitations: no limitations History of Present Illness HPI narrative: 43 yo female with history of anxiety, hypothyroidism, history of umbilical hernia repair, hx colitis with E. coli bacteremia February 2022 who presents to the ER for evaluation of headaches, fevers, upper abdominal pain and diarrhea that started 2 days ago. She states her symptoms feel like the flu or when she had colitis. She feels like she is getting worse. Motrin has been helping her fevers but not her abdominal pain. Pain is located across the entire upper abdomen, comes and goes, and worse with movement. Had 2 episodes of nonbloody diarrhea yesterday, nauseated but not vomiting. No known sick contacts. No respiratory symptoms. No urinary symptoms. MD elicited complaint: abdominal pain Pertinent past history: other (colitis) Onset (ago): day(s) (2) Pain Consistency: intermittent Location: epigastric, LUQ and RUQ Severity: moderate Quality: stabbing Radiation: none Migration to: no migration Exacerbating factors: movement Relieving factors: rest Context: history of similar episodes Associated symptoms: nausea, diarrhea, fever and chills Related Data Home Medications Medication Instructions Recorded Confirmed ferrous sulfate 325 mg (65 mg 325 mg PO DAILY 04/03/21 04/12/23 iron) tablet Previous Rx's Medication Instructions Recorded levothyroxine 88 mcg tablet 88 mcg PO .COMPLEX #90 tabs 06/02/23 hydroxyzine HCl 25 mg tablet 25 mg PO TID PRN anxiety #30 tabs 06/03/23 Allergies Allergy/AdvReac Type Severity Reaction Status Date / Time No Known Allergies Allergy Verified 06/03/23 07:11 Review of Systems Review of Systems Yes all other systems are reviewed and are negative [facility] Past Medical History Medical History (Updated 06/22/23 @ 12:27 by JA Post) HPV test positive Vitamin D deficiency Hypercholesterolemia Obesity (BMI 30-39.9) Hypothyroidism Anemia Surgical History (Updated 04/05/22 @ 11:42 by Tom Gage MD) History of umbilical hernia repair History of History of endometrial ablation Tubal ligation status Family History Family History (Updated 04/12/23 @ 11:15 by Aishwarya Faulkner CMA) Father Diabetes HTN (hypertension) High cholesterol Myocardial infarct Mother Lymphoma Maternal Aunt Colon cancer Social History Social History (Updated 04/12/23 @ 11:32 by Tom Gage MD) Household Members: Spouse, Family and Children Housing: House Do you presently have visiting nurse or other home services: No Alcohol intake: never Patient Tobacco Use Status: Never used Tobacco Smoked in Last 30 Days: No e-Cigarette/Vaping Use: Never Used Second Hand Smoke Exposure: No Use of substances other than those prescribed or required for medical reasons: No Advance Directives: No Patient : No service: No Current occupational status: employed Cognitive needs: No Hearing needs: No Vision needs: Yes Physical Exam ED Vital Signs: Vital Signs - 24 hr 06/22/23 08:40 06/22/23 12:26 Temperature 97.8 F 98.8 F Pulse Rate 106 H 87 Respiratory Rate 18 18 Blood Pressure 109/76 110/74 Pulse Oximetry 97 97 Oxygen Delivery Method Room Air Room Air BMI result Body Mass Index 31.2 Appearance: Alert. Oriented X3. No acute distress. Head: normocephalic, atraumatic. Eyes: Pupils equal, round and reactive to light. ENT: Pharynx normal. No tonsillar swelling or exudate. Neck: Normal inspection. Neck supple. CVS: Normal heart rate and rhythm. Pulses normal. Respiratory: No respiratory distress. Breath sounds normal. Abdomen: Soft with tenderness of the entire upper abdomen, +guarding without rebound, hyperactive bowel sounds x4 Skin: Skin warm and dry. Normal skin color. Normal skin turgor. No rashes. Extremities: No lower extremity edema. No joint swelling. Neuro/psych: Oriented X 3. No motor deficit. No sensory deficit. CN II-XII intact. Normal speech and cognition. Medical Decision Making Medical Decision Making MDM Narrative: 43 yo female with history of anxiety, hypothyroidism, history of umbilical hernia repair, hx colitis with E. coli bacteremia February 2022 who presents to the ER for evaluation of headaches, fevers, upper abdominal pain and diarrhea that started 2 days ago. Patient given IVF, morphine and zofran. labs showing WBC 13.3. mildly elevated LFTs with normal bilirubin and alk phos, normal lipase. CT scan w/ circumferential thickening of the terminal ileum and ileocecal valve. ? she has no history of Crohn's disease or inflammatory bowel disease. Upon re-evaluation patient is feeling better. She has mild ongoing headache but no abdominal pain, no nausea, vomiting, diarrhea since she has been here. We discussed the results of her labs and CT scan. Recommend outpatient GI follow-up. Patient agrees with plan. At this time comfortable discharge home with outpatient follow-up. Differential Diagnosis Differential Diagnoses: The differential diagnosis associated with the presentation includes Gastroenteritis, viral syndrome, influenza, colitis, acute cholecystitis, acute pancreatitis, IBD Admission/Observation Consideration of admission/observation: Escalation of care including admission/observation considered Lab Data MDM Lab Attestation statement: I reviewed the patient's lab results. 06/22/23 09:33 06/22/23 09:33 Labs: Lab Results 06/22/23 06/22/23 06/22/23 Range/Units 09:33 11:11 11:12 WBC 13.3 H (4.8-10.8) X10*3/uL RBC 4.52 (4.20-5.50) X10*6/uL Hgb 14.1 (12.0-16.0) g/dl Hct 41.5 (37.0-47.0) % MCV 91.8 (80.0-98.0) fL MCH 31.2 (27.0-33.0) pg MCHC 34.0 (31.0-35.0) g/dl RDW 12.9 (11.0-16.0) % Plt Count 197 (160-400) X10*3/uL MPV 10.0 (9.4-12.3) fL Immature Gran % (Auto) 0.3 (0.0-0.4) % Neut % (Auto) 80.8 H (45-73) % Lymph % (Auto) 9.1 L (20-40) % Hooker % (Auto) 9.4 (2-11) % Eos % (Auto) 0.2 (0-4) % Baso % (Auto) 0.2 (0-2) % Lymph # (Auto) 1.2 (1.2-4.9) X10*3/uL Hooker # (Auto) 1.3 H (0.1-1.2) X10*3/uL Eos # (Auto) 0.0 (0.0-0.4) X10*3/uL Baso # (Auto) 0.0 (0.0-0.2) X10*3/uL Abs Immat Gran (auto) 0.04 H (0.00-0.03) X10*3/uL Absolute Neuts (auto) 10.7 H (2.0-8.3) x10*3/uL Absolute Nucleated RBC 0.000 (0.0-0.012) X10*3/uL Nucleated RBC % (auto) 0.0 (0.0-0.2) /100WBC Sodium 136 (135-145) mmol/L Potassium 3.6 (3.3-5.1) mmol/L Chloride 105 (96-108) mmol/L Carbon Dioxide 23 (22-29) mmol/L Anion Gap 12 (12-20) BUN 6 L (9-16) mg/dL Creatinine 0.83 (0.5-1.4) mg/dL Estim Creat Clear Calc 79.3 Estimated GFR > 60 Random Glucose 107 (60-115) mg/dL Lactic Acid 0.6 (0.5-2.0) mmol/L Calcium 9.0 D (8.4-10.2) mg/dL Magnesium 2.2 (1.6-2.6) mg/dL Total Bilirubin 0.7 (0.0-1.0) mg/dL Direct Bilirubin 0.2 (0.0-0.5) mg/dL AST 70 H (5-31) U/L ALT 87 H (0-31) U/L Alkaline Phosphatase 94 (39-117) U/L Total Protein 7.4 (6.5-8.0) g/dL Albumin 4.0 (3.5-5.0) g/dL Lipase 11 (8-78) U/L Urine Color Yellow Urine Appearance Clear Urine pH 6.0 (5.0-9.0) Ur Specific [place] >= 1.030 H (1.005-1.025) Urine Protein Negative (Neg-Trace) mg/dL Urine Glucose (UA) Negative (Negative) mg/dL Urine Ketones 15 (Negative) mg/dL Urine Blood Small (1+) H (Negative) Urine Nitrite Negative (Negative) Ur Leukocyte Esterase Negative (Negative) Urine RBC 0-2 (0-2) /HPF Urine WBC 0-5 (0-5) /HPF Ur Squamous Epith Cells 0-2 (0-2) /HPF Urine Bacteria None Seen (None Seen) Hyaline Casts 0-2 (0-2) /LPF Influenza Type A (PCR) NEGATIVE (Negative) Influenza Type B (PCR) NEGATIVE (Negative) RSV RNA Qual (PCR) NEGATIVE (Negative) SARS-CoV-2 RNA (RT-PCR) NEGATIVE (Negative) Independent Interpretation I performed an independent interpretation of an: CT Scan Interpretation: CT scan without evidence of obstruction, no colonic stranding or abscess, agree w/ radiology read Radiology Impression Discussion of test interpretation with radiology: I have reviewed the radiologist's reading. Radiologist Impression: EXAMINATION: CT ABDOMEN AND PELVIS WITH CONTRAST CLINICAL INFORMATION: History of colitis abdominal pain and diarrhea COMPARISON: 03/06/2022 TECHNIQUE: Multidetector volumetric images were obtained from the superior aspect of the liver through the pubic symphysis following administration 85 mL of Omnipaque 350 intravenous contrast. Sagittal and coronal reformatted images were obtained on the technologist's workstation. Oral contrast: None This CT examination was performed using dose optimization techniques as appropriate, variously including the following: *Automated exposure control *Adjustment of mA and/or kV according to patient size (this includes techniques or standardized protocols for targeted exams where dose is matched to indication/reason for exam; i.e. extremities or head) *Use of iterative reconstruction technique DLP: 512 mGy-cm FINDINGS: LUNG BASES: There are bilateral dependent atelectasis. LIVER, GALLBLADDER, AND BILIARY TREE: The liver is normal in size, shape, and attenuation. No focal hepatic lesion or biliary ductal dilatation is present. The gallbladder is unremarkable with no evidence of radiopaque gallstones, gallbladder wall thickening, or obvious pericholecystic inflammatory changes. PANCREAS: Unremarkable. SPLEEN: Unremarkable. ADRENAL GLANDS: Unremarkable. KIDNEYS AND URETERS: The kidneys are normal in size, shape, and attenuation. No hydronephrosis, hydroureter, or calculi seen. No perinephric stranding. BLADDER: Unremarkable. GASTROINTESTINAL TRACT: There is circumferential thickening of the terminal ileum and ileocecal valve normal appendix visualized. Ascending colon, transverse colon, descending colon, sigmoid colon are unremarkable. ABDOMINAL WALL: No significant hernia is appreciated. LYMPH NODES: Normal. VASCULAR: Unremarkable. PELVIC VISCERA: The multiple follicles in both ovaries. There is possibly arcate uterus. OSSEOUS STRUCTURES: Unremarkable. CT/CT abdomen pelvis w IV con IMPRESSION: Circumferential thickening of the terminal ileum and ileocecal valve, Correlate clinically for inflammatory bowel disease such as Crohn's disease. External Record Review External record reviewed: Inpatient record, Outpatient record, Prior outpatient labs and Prior outpatient radiology Prescription Management I considered prescription management with: Pain Medication and Antibiotic Medications Administered Discontinued Medications Generic Name Dose Route Start Last Admin Trade Name Freq PRN Reason Stop Dose Admin Sodium Chloride 1,000 mls @ 999 mls/hr 06/22/23 09:30 06/22/23 10:40 Ns IVCONT 06/22/23 10:30 Infused .Q1H1M LAURA Infusion Iohexol 100 ml 06/22/23 10:17 06/22/23 10:18 Iohexol 350 Mg/Ml 100 Ml Infus..Btl IV 06/22/23 10:18 85 ml ONCE ONE Administration Morphine Sulfate 4 mg 06/22/23 09:17 06/22/23 09:39 Morphine Sulfate 4 Mg/Ml Cartridge IVPUSH 06/22/23 09:18 4 mg ONCE ONE Administration Protocol Ondansetron HCl 4 mg 06/22/23 09:17 06/22/23 09:39 Ondansetron Hcl 4 Mg/2 Ml Vial IVPUSH 06/22/23 09:18 4 mg ONCE ONE Administration Critical Care Time Critical Care Time Critical Care Time: No Discharge Plan Discharge Clinical Impression: Gastroenteritis Patient Disposition: Home, Self-Care Instructions: Gastroenteritis (DC) Additional Instructions: You lab workup today showed a mild elevation in your white blood cell count, which is nonspecific. Your urine test was negative for infection. You tested negative for COVID, Flu and RSV. Your CT scan showed thickening of the terminal ileium and ileocecal valve , recommend clinical correlation for possible inflammatory bowel disease such as Crohn's disease Recommend following up with GI for further evaluation and treatment - call for an appointment. Recommend rest and plenty of oral hydration. Stick to a bland diet like soup and toast while you are not feeling well. Take the prescribed medication as needed for nausea. Recommend over the counter Pepto Bismol or Imodium for upset stomach and diarrhea. Follow up with your doctor as needed. If you develop new or worsening symptoms call 911 or come back to the ER for further evaluation. Prescriptions: No Action levothyroxine 88 mcg tablet 88 mcg PO .COMPLEX Qty: 90 2RF Rx Instructions: 88 mcg PO take once a day fro 6 days a week; ferrous sulfate 325 mg (65 mg iron) tablet 325 mg PO DAILY hydroxyzine HCl 25 mg tablet 25 mg PO TID PRN (Reason: anxiety) Qty: 30 0RF Referrals: [facility] [place] [facility] [Provider Group] (CT/CT abdomen pelvis w IV con IMPRESSION: Circumferential thickening of the terminal ileum and ileocecal valve, Correlate clinically for inflammatory bowel disease such as Crohn's disease.) Po,Tom Goldsmith MD [Primary Care Provider] - Stand Alone Forms: Work/School Release
[2023-06-22 09:38] LABS: MANUAL DIFF FLAG NO
[2023-06-22] MEDS: Morphine Sulfate 4 MG/ML CARTRIDGE IVPUSH (09:39)
[2023-06-22] MEDS: 0.9 % Sodium Chloride 1,000 ML 999 ML IVCONT (09:39)
[2023-06-22] MEDS: ondansetron HCL 4 MG/2 ML VIAL IVPUSH (09:39)
[2023-06-22 09:41] LABS: Basophils Percent Auto 0.2 % (0-2); Eosinophils Percent Auto 0.2 % (0-4); Hematocrit 41.5 % (37.0-47.0); Hemoglobin 14.1 g/dl (12.0-16.0); Imm Gran Abs Auto 0.04 X10*3/uL (0.00-0.03); Imm Gran Pct Auto 0.3 % (0.0-0.4); Lymphocytes Absolute Auto 1.2 X10*3/uL (1.2-4.9); Lymphocytes Percent Auto 9.1 % (20-40); Mean Corpuscular Hemoglobin 31.2 pg (27.0-33.0); Mean Corpuscular Volume 91.8 fL (80.0-98.0); Monocytes Absolute Auto 1.3 X10*3/uL (0.1-1.2); Monocytes Percent Auto 9.4 % (2-11); Neutrophils Absolute Auto 10.7 x10*3/uL (2.0-8.3); Neutrophils Percent Auto 80.8 % (45-73); Platelet Count 197 X10*3/uL (160-400); Red Blood Count 4.52 X10*6/uL (4.20-5.50); Red Cell Distribution Width 12.9 % (11.0-16.0); White Blood Count 13.3 X10*3/uL (4.8-10.8)
[2023-06-22 09:54] LABS: Lipase 11 U/L (8-78)
[2023-06-22 09:56] LABS: Alanine Aminotransferase 87 U/L (0-31); Alkaline Phosphatase 94 U/L (39-117); Anion Gap 12 (12-20); Aspartate Amino Transferase 70 U/L (5-31); Bilirubin Direct 0.2 mg/dL (0.0-0.5); Bilirubin Total 0.7 mg/dL (0.0-1.0); Blood Urea Nitrogen 6 mg/dL (9-16); Carbon Dioxide 23 mmol/L (22-29); Chloride 105 mmol/L (96-108); Creatinine Clr Calc Pharmacy 79.3; Estimated Glomerular Filt Rate > 60; Glucose Random 107 mg/dL (60-115); Magnesium 2.2 mg/dL (1.6-2.6); Potassium 3.6 mmol/L (3.3-5.1); Sodium 136 mmol/L (135-145); Total Protein 7.4 g/dL (6.5-8.0)
[2023-06-22] MEDS: iohexoL 350 MG/ML 100 ML INFUS..BTL IV (10:18)
[2023-06-22 12:00] LABS: Appearance Urine Clear; Color Urine Yellow; Glucose Urine UA Negative (Negative); Leukocyte Esterase Urine Negative (Negative); Nitrite Urine Negative (Negative); Specific Gravity - Urine >= 1.030 (1.005-1.025); UMIC TRIGGER UACC YES; Urine Blood Small (1+) (Negative); Urine Ketones 15 mg/dL (Negative); Urine Protein Negative (Neg-Trace)
[2023-06-22 12:07] LABS: Bacteria Urine None Seen (None Seen); Hyaline Casts Urine 0-2 /LPF (0-2); RBC Urine 0-2 /HPF (0-2); Squamous Epithelial Cell Urine 0-2 /HPF (0-2); WBC Urine 0-5 /HPF (0-5)
[2023-06-22 12:10] LABS: Lactic Acid 0.6 mmol/L (0.5-2.0)
[2023-06-22 12:12] LABS: Influenza A PCR NEGATIVE (Negative); Influenza B PCR NEGATIVE (Negative); Resp Syncy Virus RNA Qual PCR NEGATIVE (Negative); SARS COV2 PCR INHOUSE NEGATIVE (Negative)
[2023-06-22 12:26] VITALS: BP 110/74; PULSE 87; RESP 18; TEMP 37.1; O2SAT 97
== END 2023-06-22 13:02 | disposition home or self-care (01) ==
PROVIDERS: Physician Assistant; Emergency Provider Emergency Medicine; PCP Internal Medicine
DX: K52.9 Noninfective gastroenteritis and colitis, unspecified (principal); R51.9 Headache, unspecified; Z20.822 Contact with and (suspected) exposure to COVID-19; Z20.828 Contact with and (suspected) exposure to other viral communicable diseases
CPT/HCPCS: 0241U; 36415; 74177; 80048; 80076; 81001; 81003; 83605; 83690; 83735; 85025; 87040; 96361; 96374; 96375; 99284; J2270; J2405; Q9967

== ENCOUNTER 2023-06-29 13:40 | Outpatient (REF) | payer OTHER, SELFPAY ==
[2023-06-29 17:37] LABS: CT PCR NOT DETECTED (Not Detect.); NG PCR NOT DETECTED (Not Detect.)
[2023-06-30 12:34] LABS: BV Int Neg Control Negative (Negative); BV Int Pos Control Positive (Positive)
== END 2023-06-29 13:41 | disposition home or self-care (01) ==
LOC: HO.LNP 13:40
PROVIDERS: PCP Internal Medicine; Visit Provider Advanced Practice Midwife
DX: Z01.419 Encounter for gynecological examination (general) (routine) without abnormal findings (principal); Z11.51 Encounter for screening for human papillomavirus (HPV); Z20.2 Contact with and (suspected) exposure to infections with a predominantly sexual mode of transmission
CPT/HCPCS: 0353U; 87480; 87510; 87624; 87660; 88142; 99386

== ENCOUNTER 2023-06-29 13:40 | Outpatient (AMB) | payer OTHER, SELFPAY ==
--- NOTE | 2023-06-29 13:45 | A.OFFVIS_ITS ---
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 She is not having any charting clerk concerns she has a history of having had and tubal ligation and an endometrial ablation because of heavy periods. She had has also she used to see comments [facility] and her was done by Dr. Hassan as well as her tubal ligation endometrial ablation was per Dr. Davila here some years back. She has not gotten a menses since then. She does have a challenge with recurring bouts of lower abdominal pain and has been in the hospital and been evaluated in the ER. Previous diagnoses have included colitis for which she was hospitalized in given IV antibiotics and most recently in the ER they told her that her small intestines were inflamed, noted on CT scan. She is going to be seeing Dr. Yuen and is awaiting referral to Gastroenterology. [facility] Medical History (Updated 06/29/23 @ 14:35 by Anuja Mills CNM) HPV test positive Vitamin D deficiency Hypercholesterolemia Obesity (BMI 30-39.9) Hypothyroidism Anemia Surgical History History of umbilical hernia repair History of History of endometrial ablation Tubal ligation status Family History Father Diabetes HTN (hypertension) High cholesterol Myocardial infarct Mother Lymphoma Maternal Aunt Colon cancer Social History Household Members: Spouse, Family and Children Housing: House Do you presently have visiting nurse or other home services: No Alcohol intake: never Patient Tobacco Use Status: Never used Tobacco e-Cigarette/Vaping Use: Never Used Second Hand Smoke Exposure: No service: No Current occupational status: employed Cognitive needs: No Hearing needs: No Vision needs: Yes Female Reproductive History Menstrual Age of Menarche: 11 Total pregnancies: 4 Number of Living Children: 3 Ab spontaneous: 1 Date of last pap smear: 08/17/19 (WNL) Physical Exam Vital Signs: Last Vital Signs Resp 16 06/29/23 13:47 BP 106/60 06/29/23 13:47 BMI result Body Mass Index 31.2 Const General: healthy appearing, comfortable, no acute distress, well developed and alert Nutritional Appearance: average body habitus Orientation/consciousness: patient oriented x3 Limitations: no limitations HEENT Head: Yes normocephalic Neck Neck: Yes normal visual inspection Chest Chest palpation & inspection: normal inspection of the chest Breast/axilla inspection: normal inspection of the breasts and normal inspection of the axillae Breast/axilla palpation: normal palpation of the breasts and normal palpation of the axillae Resp Effort & Inspection: normal respiratory effort GI Inspection: Yes normal to inspection, No Abdominal wall edema and No distended Palpation (GI): Soft to palpation and nontender Other: Normal external exam vagina pink moist cervix appears nulliparous tightly samantha sed. Uterus small anteverted nontender. Adnexa nontender not enlarged very good muscle tone. General: Yes bladder normal to palpation External Female Exam: normal external appearance and normal appearance of the urethra Speculum Exam - Vagina: normal appearance of the vagina, normal palpation and normal vaginal discharge Speculum Exam - Cervix: normal appearance of the cervix, normal palpation and nontender Bimanual exam- vagina & uterus: normal bimanual exam, normal palpation, uterine size normal, bladder normal to palpation, consistency normal, normal palpation, uterine mobility normal, uterine shape normal, No Cervical tenderness present, non-tender and no cervical motion tenderness Bimanual Exam- Adnexa, other: normal adnexae, no masses, normal and No adnexal tenderness Neuro General: patient oriented x3 Assessment & Plan Assessment & Plan (1) Cervical cancer screening: Comment: History of HPV positive 2014 and patient believes also in 2004 Paps otherwise negative per memory. Last Pap negative with negative HPV 2018; Pap done 06/29/2023 Code(s): Z12.4 - Encounter for screening for malignant neoplasm of cervix (2) Well woman exam with routine gynecological exam: Code(s): Z01.419 - Encounter for gynecological examination (general) (routine) without abnormal findings (3) Breast cancer screening: Code(s): Z12.39 - Encounter for other screening for malignant neoplasm of breast (4) Screen for sexually transmitted diseases: Code(s): Z11.3 - Encounter for screening for infections with a predominantly sexual mode of transmission Plan -----Discussed in this visit the following: healthy balanced diet, regular and consistent exercise, getting recommended health screens, doing the best she can for her particular health concerns, kegel exercises, pap smear screening and followup recommendations, mammography screening and SBE, normal changes in c ycles in her life stage--- . Pap smear was done because of her previous HPV in 2014 she may want to consider repeating the Pap in 3 years or possibly 5 depending. on recommendations in the future. Discussed HPV and changing recommendations for Pap smear screening and why. She is not interested in any blood work for STIs but excepted the vaginal testing.. Discussed seeing if there is any cyclic relationship to her gastrointestinal symptoms because even if she is not getting a period there can be cyclic episodes of premenstrual constipation and bloating followed by looser stools around the time of ?? menses?, even if she has had an ablation. She is also paying attention to what it is that she is eating and she is trying to eat better and take care of herself and she walks for exercise. Up-to-date on her mammograms. Orders: Orders CT NG by PCR Today Z12.4 - Encounter for screening for malignant neoplasm of cervix Pap Smear Today Z12.4 - Encounter for screening for malignant neoplasm of cervix Bacterial Vaginosis Panel Today Z01.419 - Encounter for gynecological examination (general) (routine) without abnormal findings Coding Level of Care Code New Pt Prev Care 40-64y(50779) Diagnoses Cervical cancer screening Z12.4 Well woman exam with routine gynecological exam Z01.419 Breast cancer screening Z12.39 Screen for sexually transmitted diseases Z11.3
[2023-06-29 13:47] VITALS: BP 106/60; RESP 16; BMI 31.2
== END 2023-06-29 15:17 | disposition home or self-care (01) ==
PROVIDERS: PCP Internal Medicine; Visit Provider Advanced Practice Midwife
DX: Z12.4 Encounter for screening for malignant neoplasm of cervix (principal); Z01.419 Encounter for gynecological examination (general) (routine) without abnormal findings; Z12.39 Encounter for other screening for malignant neoplasm of breast; Z11.3 Encounter for screening for infections with a predominantly sexual mode of transmission
CPT/HCPCS: 99386

== ENCOUNTER 2023-08-03 12:12 | Outpatient (REF) | payer OTHER, SELFPAY | END 2023-08-03 12:13 | disposition home or self-care (01) | LOC: HO.MAMMO 12:12 | PROVIDERS: PCP Internal Medicine; Visit Provider Internal Medicine | DX: Z12.31 Encounter for screening mammogram for malignant neoplasm of breast (principal) | CPT/HCPCS: 77063; 77067 ==

== ENCOUNTER → 2023-08-03 12:15 | Outpatient (BNV) | payer OTHER, SELFPAY | PROVIDERS: PCP Internal Medicine; Visit Provider Radiology Diagnostic Radiology | DX: Z12.31 Encounter for screening mammogram for malignant neoplasm of breast (principal) | CPT/HCPCS: 77063; 77067 ==

== ENCOUNTER 2023-11-28 16:42 | Outpatient (AMB) | payer OTHER, SELFPAY ==
--- NOTE | 2023-11-28 16:44 | MHC.PC.OV ---
Vital Signs 11/28/23 16:47 Height 5 ft Weight 164 lb 4 oz BMI 32.1 BP 112/62 Blood Pressure Location Lt brachial Position Sitting Pulse 66 Pulse Source Pulse Oximeter Pulse Oximetry (%) 98 Oxygen Delivery Method Room Air Intake Visit Reasons: 3 month anxiety f/u Intake Note: Patient is here to follow up on SWETHA, Chronic Pain, Hypothyroidism. Cone Sewer Required: No Building Analyst/Supervisor: Not Required per policy Accompanied by: Self / Same As Patient Allergies No Known Allergies Allergy (Verified 11/28/23 16:47) Tobacco use date assessed: 11/28/23 Dental Screening Dental Screen Date: 11/28/23 Did you have a dental visit in the last 12 months?: Yes Did you have a dental problem in the last 6 months where you did not have access to dental care?: No Was dental information given to patient?: Patient has dentist HPI 3 month anxiety f/u HPI Details 43-year-old obese female with hypothyroidism elevated blood sugar generalized anxiety disorder hypercholesterolemia last seen in May 2023. Patient's mammogram is up-to-date patient follows up with OB Gynecology. In May was seen in the Urgent Center for abdominal pain had a CT scan done showing ileal thickening question of Crohn's disease. Patient is doing good right now but has always had chronic right lower quadrant pain which she always frequent the gynecology has mentioned this was normal. And so with the problem with terminal ileum inflammation concern about gastro problem and would like to be seen by the strategy lead. Patient also complains of having lower extremity as well as trunk varicose veins showing up and would like this to get tested. Discussed with her the concerns of the liver function problem but CT scan did not reveal any problem with liver and will have to follow-up with the liver function tests. [facility] Medical History (Updated 11/28/23 @ 17:15 by Tom Gage MD) Screen for sexually transmitted diseases HPV test positive Vitamin D deficiency Hypercholesterolemia Obesity (BMI 30-39.9) Hypothyroidism Anemia Surgical History History of umbilical hernia repair History of History of endometrial ablation Tubal ligation status Family History Father Diabetes HTN (hypertension) High cholesterol Myocardial infarct Mother Lymphoma Maternal Aunt Colon cancer Social History Household Members: Spouse, Family and Children Housing: House Do you presently have visiting nurse or other home services: No Alcohol intake: never Patient Tobacco Use Status: Never used Tobacco e-Cigarette/Vaping Use: Never Used Second Hand Smoke Exposure: No service: No Current occupational status: employed Cognitive needs: No Hearing needs: No Vision needs: Yes (glasses) Female Reproductive History Menstrual Age of Menarche: 11 Questionnaire PHQ-9 Over the last 2 weeks, how often have you been bothered by any of the following problems? 1. Little interest or pleasure in doing things: not at all 2. Feeling down, depressed, or hopeless: not at all 3. Trouble falling or staying asleep, or sleeping too much: not at all 4. Feeling tired or having little energy: not at all 5. Poor appetite or overeating: not at all 6. Feeling bad about yourself - or that you are a failure or have let yourself or your family down: not at all 7. Trouble concentrating on things, such as reading the newspaper or watching television: not at all 8. Moving or speaking so slowly that other people could have noticed. Or the opposite - being so fidgety or restless that you have been moving around a lot more than usual: not at all 9. Thoughts that you would be better off or of hurting yourself in some way: not at all Total score: 0 Depression Screening Interpretation: Negative Depression Screening Done: Yes Source: Developed by Drs. Gunnar La, Haley Moran, Yimi Patton and colleagues, with an educational markie from [employer]. Thrive Questionnaire Date Thrive assessed: 11/28/23 I am a: Patient What is your living situation today?: I have a steady place to live Within the past 12 months, did the food you bought not last and you didn't have the money to get more?: Never true Within the past 12 months, did you worry whether your food would run out before you got money to buy more?: Never true Do you have trouble paying for medicines?: No Do you have trouble getting transportation to medical appointments?: No Do you have trouble paying your heating and electricity bill?: No Do you have trouble taking care of your child, family member or friend?: No Do you have trouble with day-to-day activities such as bathing, preparing meals, shopping, managing finances, etc.?: No Are you currently unemployed and looking for a job?: No Are you interested in more education?: No Currently or been in a relationship where the following occur: no concerns reported THRIVE Score: 0 AUDIT C Alcohol Use Questionnaire (AUDIT-C) 1. How often do you have a drink containing alcohol?: Monthly or less 2. How many drinks containing alcohol do you have on a typical day when you are drinking?: 1 or 2 Total Score: 1 SWETHA-7 AMB Questionnaire SWETHA-7 Date SWETHA - 7 assessed: 11/28/23 Feeling nervous, anxious, or on edge: 0 = Not at all Not being able to stop or control worryin = Not at all Worrying too much about different things: 0 = Not at all Trouble relaxin = Not at all Being so restless that it is hard to sit still: 0 = Not at all Becoming easily annoyed or irritable: 0 = Not at all Feeling afraid as if something awful might happen: 0 = Not at all Total SWETHA-7 score (0-4 normal; 5-9 mild; 10-14 moderate; 15-21 severe): 0 Source: Developed by Drs. Gunnar La, Haley Moran, Yimi Patton and colleagues, with an educational markie from [employer]. Physical exam (Primary Care) Vital Signs: Last Vital Signs Pulse 66 11/28/23 16:47 BP 112/62 11/28/23 16:47 Pulse Ox 98 11/28/23 16:47 Oxygen Delivery Method Room Air 11/28/23 16:47 BMI result Body Mass Index 32.1 Tobacco/Smoking Status: Tobacco use Status Tobacco use date assessed 11/28/23 11/28/23 16:52 Patient Tobacco Use Status Never used Tobacco 11/28/23 16:52 Tobacco use type 11/03/21 11:55 e-Cigarette/Vaping Use Never Used 11/28/23 16:52 PHQ-9: PHQ-9 Score PHQ-9: Total score 0 11/28/23 16:52 Depression Screening Interpretation: Negative Thrive Assessment: Date of Thrive Assessment Date Thrive assessed 11/28/23 11/28/23 16:52 Currently or been in a relationship where the following occur: no concerns reported Const General: alert; No acute distress Eyes Conjunctivae: conjunctivae normal Resp Auscultation: clear to auscultation bilaterally Cardio Rate: regular rate Rhythm: regular rhythm GI Inspection: Yes normal to inspection Extrem General: Yes normal to inspection and No edema Assessment and Plan Assessment & Plan (1) Obesity (BMI 30-39.9): Code(s): E66.9 - Obesity, unspecified Plan: Diet and exercise (2) Hypothyroidism: Comment: hyperthyroidism status post iodine ablation Code(s): E03.9 - Hypothyroidism, unspecified Qualifiers: Hypothyroidism type: acquired Qualified Code(s): E03.9 - Hypothyroidism, unspecified Plan: Continue with present thyroid medication (3) Hypercholesterolemia: Code(s): E78.00 - Pure hypercholesterolemia, unspecified Plan: Avoid fried foods, chicken skin, eggs, butter margarine, pastries and meat. Be it pork or beef they have a lot of cholesterol LDL goal of less than 130 and triglyceride of less than 150. May 2023 last blood work (4) Colitis: Code(s): K52.9 - Noninfective gastroenteritis and colitis, unspecified Plan: Resolved But referral to Gastroenterology done (5) Generalized anxiety disorder: Comment: Declined counseling Code(s): F41.1 - Generalized anxiety disorder Plan: Continue with present medication (6) Elevated LFTs: Code(s): R79.89 - Other specified abnormal findings of blood chemistry Plan: Repeat blood work to be done (7) Varicose veins of bilateral lower extremities with other complications: Code(s): I83.893 - Varicose veins of bilateral lower extremities with other complications Plan: When sitting down elevate the legs, exercise, and support stockings referral also to vascular surgeon. Orders: Orders Comprehensive Met. Panel Today R79.89 - Other specified abnormal findings of blood chemistry Complete Blood Count Auto Diff Today R73.9 - Hyperglycemia, unspecified Thyroid Stimulating Hormone Today E03.9 - Hypothyroidism, unspecified Free T4 (Free Thyroxine) Today E03.9 - Hypothyroidism, unspecified Hemoglobin A1c Today R73.9 - Hyperglycemia, unspecified Referrals Gastroenterology Referral K52.9 - Noninfective gastroenteritis and colitis, unspecified Vascular Surgery Referral I83.893 - Varicose veins of bilateral lower extremities with other complications Coding Level of Care Code Est Pt Level 4 (28942) Diagnoses Obesity (BMI 30-39.9) E66.9 Acquired hypothyroidism E03.9 Hypothyroidism type: acquired Hypercholesterolemia E78.00 Colitis K52.9 Generalized anxiety disorder F41.1 Elevated LFTs R79.89 Varicose veins of bilateral lower extremities with other complications I83.893
[2023-11-28 16:47] VITALS: BP 112/62; PULSE 66; O2SAT 98; BMI 32.1
== END 2023-11-28 17:19 | disposition home or self-care (01) ==
PROVIDERS: PCP Internal Medicine; Visit Provider Internal Medicine
DX: K52.9 Noninfective gastroenteritis and colitis, unspecified (principal); E66.9 Obesity, unspecified; Z68.32 Body mass index [BMI] 32.0-32.9, adult; E78.00 Pure hypercholesterolemia, unspecified; F41.1 Generalized anxiety disorder; R79.89 Other specified abnormal findings of blood chemistry; I83.893 Varicose veins of bilateral lower extremities with other complications
CPT/HCPCS: 99214

== ENCOUNTER 2023-12-29 13:26 | Outpatient (AMB) | payer OTHER, SELFPAY ==
--- NOTE | 2023-12-29 13:28 | MHC.OFFVIS ---
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 Patient has varicose veins on both legs , states the last year they've gotten worse. No swelling or redness. Some cramping. 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 Complaints includ swelling of lower extremities, and heaviness of the lower extremities. 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 It is noted more so in right leg but notes bilateral discomfort. Of note she has a nonsmoker nondiabetic. Patient denies any previous venous surgery or injections. Patient denies any history of DVT/ PE. Patient denies any history of phlebitis. Trial of compression includes - [id number] They now present for vascular evaluation regarding their varicose veins. [facility] Medical History Screen for sexually transmitted diseases HPV test positive Vitamin D deficiency Hypercholesterolemia Obesity (BMI 30-39.9) Hypothyroidism Anemia Surgical History History of umbilical hernia repair History of History of endometrial ablation Tubal ligation status Family History Father Diabetes HTN (hypertension) High cholesterol Myocardial infarct Mother Lymphoma Maternal Aunt Colon cancer Social History Household Members: Spouse, Family and Children Housing: House Do you presently have visiting nurse or other home services: No Alcohol intake: never Patient Tobacco Use Status: Never used Tobacco e-Cigarette/Vaping Use: Never Used Second Hand Smoke Exposure: No service: No Current occupational status: employed Cognitive needs: No Hearing needs: No Vision needs: Yes (glasses) Female Reproductive History Menstrual Age of Menarche: 11 Review of Systems Const Reports as per HPI ENT Reports no additional complaints Card Denies chest pain, Denies chest pain at rest and Denies chest pain with activity Resp Denies chest congestion and Denies cough GI Reports no additional complaints Musc Details: pain over varicosities, aching of lower extremities, swelling, cramping, heaviness and tiredness, itching Denies abnormal gait Skin/Breast Reports pruritus and Denies wounds Neuro Reports no additional complaints and Denies abnormal gait Psych Denies no additional complaints Physical Exam Const General: cooperative, healthy appearing and comfortable Orientation/consciousness: oriented to person, oriented to place and oriented to time Neck Carotids: no bruits Chest Chest palpation & inspection: normal inspection of the chest and normal palpation of entire chest wall Resp Effort & Inspection: normal respiratory effort and able to speak in complete sentences Cardio Rate: regular rate Heart sounds: S1 normal heart sound present and S2 normal heart sound present Peripheral pulses: Peripheral pulses 2+ throughout GI Inspection: Yes normal to inspection Skin Other: +2 edema, multiple spider telangiectasias CEAP Classification C4 - skin color changes Ep - Etiology Primary As - superficial veins P - reflux General skin exam: dry skin Neuro General: oriented to person, oriented to place and oriented to time Extrem Right lower extremity: full ROM, normal capillary refill and edema Left lower extremity: full ROM, normal capillary refill and edema Psych Mental Status: mental status grossly normal Assessment & Plan Assessment & Plan (1) Varicose veins of right lower extremity with inflammation: Code(s): I83.11 - Varicose veins of right lower extremity with inflammation Plan: In short, the patient has evidence of venous insufficiency. I have discussed the pathophysiology with the patient. In addition I have provided informational material regarding venous disease to the patient. We have discussed conservative measures including compression, elevation, and exercise. I have also provided a handout regarding appropriate use of compression stockings and where to purchase good compression stockings as well. I have taken the liberty of ordering venous insufficiency testing with the patient. They will follow up with me after testing. The patient had an opportunity to ask questions regarding the treatment plan. All questions were answered. Imaging studies, laboratory studies and physical exam results were discussed and reviewed in detail. No major barriers to understanding were identified. The patient expressed understanding and agreement with the above treatment plan. The patient is aware they should contact our office by phone for worsening of the current condition or the appearance of new symptoms. Thank you for allowing me to participate in the vascular care of this patient. If you have any questions or concerns regarding the treatment for the above condition please do not hesitate to contact me. The office telephone contact is [phone]. This note is constructed using voice recognition software. While every effort has been made to ensure accuracy, bull wheel worker errors may have been included. Thank you for allowing me to participate in the care of your patient. Yours sincerely, Mikel Tyson MD, FACS, R.P.V.I. Orders: Orders US venous duplex LE BI 1 Week I83.11 - Varicose veins of right lower extremity with inflammation Coding Level of Care Code Est Pt Level 4 (70588) Diagnoses Varicose veins of right lower extremity with inflammation I83.11
== END 2023-12-29 14:03 | disposition home or self-care (01) ==
PROVIDERS: PCP Internal Medicine; Visit Provider Surgery Vascular Surgery
DX: I83.11 Varicose veins of right lower extremity with inflammation (principal)
CPT/HCPCS: 99213

== ENCOUNTER → 2023-12-29 13:26 | Outpatient (BNVA) | payer OTHER, SELFPAY | PROVIDERS: PCP Internal Medicine; Visit Provider Surgery Vascular Surgery ==

== ENCOUNTER 2024-01-05 08:32 | Outpatient (REF) | payer OTHER, SELFPAY ==
--- NOTE | ~2024-01-05 | US_ITS ---
EXAMINATION: US LOWER EXTREMITY VENOUS (REFLUX EXAM), BILATERAL CLINICAL INDICATION: Varicose veins COMPARISON: None. TECHNIQUE: Color flow triplex imaging and compression Doppler was performed to evaluate both the deep and the superficial systems bilaterally. To evaluate the superficial system, the examination was performed in the upright position. Color-flow Doppler ultrasound and compression ultrasound were utilized. In addition, maneuvers were utilized to demonstrate reflux. FINDINGS: 1. DEEP VENOUS ULTRASOUND OF THE RIGHT LOWER EXTREMITY: Common Femoral Vein: Compressible, normal respiratory variation and augmented flow. Femoral Vein: Compressible, normal color flow and augmentation. Popliteal Vein: Compressible, normal augmentation. Deep Reflux: There is no evidence of reflux in the deep system in either the common femoral vein, superficial femoral or the popliteal vein. There is no evidence of a Kruger's cyst. 2. SUPERFICIAL ULTRASOUND WITH DOPPLER OF RIGHT LOWER EXTREMITY: GREAT SAPHENOUS VEIN: Saphenofemoral Junction: 0.9 cm; Reflux: 0 ms Proximal Thigh: 0.5 cm; Reflux: 0 ms Mid Thigh: 0.9 cm; Reflux: 0 ms Above Knee: 0.2 cm; Reflux: 0 ms At Knee: 0.2 cm; Reflux: 0 ms Below Knee: 0.2 cm; Reflux: 588 ms Mid Calf: 0.2 cm; Reflux: 0 ms Ankle: 0.1 cm; Reflux: 0 ms DUPLICATED MEDIAL GREAT SAPHENOUS VEIN: Saphenofemoral junction : 0.4 cm; Reflux: 0 ms Proximal: 0.1 cm; Reflux: 0 ms DUPLICATED LATERAL GREAT SAPHENOUS VEIN: Diameter: None imaged Reflux: NA SMALL SAPHENOUS VEIN: Saphenopopliteal Junction: 0.3 cm; Reflux: 0 ms Proximal: 0.2 cm; Reflux: 0 ms Distal: 0.2 cm; Reflux: 0 ms VEIN OF GIACOMINI: Size: NA Reflux: NA PERFORATORS: Location: Multiple perforators in the calf Size: 0.1-0.2 cm Reflux: NA VARICOSITIES: Location: None imaged Size: NA Reflux: NA 3. DEEP VENOUS ULTRASOUND OF THE LEFT LOWER EXTREMITY: Common Femoral Vein: Compressible, normal respiratory variation and augmented flow. Femoral Vein: Compressible, normal color flow and augmentation. Popliteal Vein: Compressible, normal augmentation. Deep Reflux: There is no evidence of reflux in the deep system in either the common femoral vein, superficial femoral or the popliteal vein. There is no evidence of a Kruger's cyst. 4. SUPERFICIAL ULTRASOUND WITH DOPPLER OF LEFT LOWER EXTREMITY: GREAT SAPHENOUS VEIN: Saphenofemoral Junction: 0.9 cm; Reflux: 0 ms Proximal Thigh: 0.5 cm; Reflux: 0 ms Mid Thigh: 0.3 cm; Reflux: 0 ms Above Knee: 0.5 cm; Reflux: 0 ms At Knee: 0.3 cm; Reflux: 0 ms Below Knee: 0.3 cm; Reflux: 0 ms Mid Calf: 0.2 cm; Reflux: 0 ms Ankle: 0.2 cm; Reflux: 0 ms DUPLICATED MEDIAL GREAT SAPHENOUS VEIN: Saphenofemoral junction : 0.3 cm; Reflux: 0 ms Proximal: 0.2 cm; Reflux: 0 ms DUPLICATED LATERAL GREAT SAPHENOUS VEIN: Diameter: None imaged Reflux: NA SMALL SAPHENOUS VEIN: Saphenopopliteal Junction: 0.3 cm; Reflux: 0 ms Proximal: 0.2 cm; Reflux: 0 ms Distal: 0.3 cm; Reflux: 0 ms VEIN OF GIACOMINI: Size: NA Reflux: NA PERFORATORS: Location: None imaged Size: NA Reflux: NA VARICOSITIES: Location: None Imaged Size: NA Reflux: NA US/US venous duplex LE BI IMPRESSION: 1. Right great saphenous vein reflux below the knee. 2. No left great saphenous venous insufficiency. 3. No evidence of small saphenous venous insufficiency.
[2024-01-05 09:37] LABS: MANUAL DIFF FLAG NO
[2024-01-05 10:33] LABS: Basophils Percent Auto 0.4 % (0-2); Eosinophils Absolute Auto 0.3 X10*3/uL (0.0-0.4); Eosinophils Percent Auto 4.3 % (0-4); Hematocrit 39.1 % (37.0-47.0); Hemoglobin 13.3 g/dl (12.0-16.0); Imm Gran Abs Auto 0.02 X10*3/uL (0.00-0.03); Imm Gran Pct Auto 0.3 % (0.0-0.4); Lymphocytes Absolute Auto 1.7 X10*3/uL (1.2-4.9); Lymphocytes Percent Auto 22.5 % (20-40); Mean Corpuscular Volume 91.1 fL (80.0-98.0); Mean Platelet Volume 10.6 fL (9.4-12.3); Monocytes Absolute Auto 0.7 X10*3/uL (0.1-1.2); Monocytes Percent Auto 9.3 % (2-11); Neutrophils Absolute Auto 4.8 x10*3/uL (2.0-8.3); Neutrophils Percent Auto 63.2 % (45-73); Platelet Count 226 X10*3/uL (160-400); Red Blood Count 4.29 X10*6/uL (4.20-5.50); Red Cell Distribution Width 13.2 % (11.0-16.0); White Blood Count 7.6 X10*3/uL (4.8-10.8)
[2024-01-05 10:58] LABS: Estimated Average Glucose 114 mg/dL; Hemoglobin A1c % 5.6 % (<6.0)
[2024-01-05 11:36] LABS: Alanine Aminotransferase 31 U/L (0-31); Albumin Level 3.9 g/dL (3.5-5.0); Alkaline Phosphatase 81 U/L (39-117); Anion Gap 9 (12-20); Aspartate Amino Transferase 30 U/L (5-31); Bilirubin Total 0.4 mg/dL (0.0-1.0); Blood Urea Nitrogen 14 mg/dL (9-16); Calcium 9.1 mg/dL (8.4-10.2); Carbon Dioxide 26 mmol/L (22-29); Chloride 107 mmol/L (96-108); Estimated Glomerular Filt Rate > 60; Glucose Random 86 mg/dL (60-115); Potassium 3.9 mmol/L (3.3-5.1); Sodium 138 mmol/L (135-145); Total Protein 7.1 g/dL (6.5-8.0)
[2024-01-05 11:37] LABS: Free T4 (Free Thyroxine) 0.99 ng/dL (0.71-1.85); Thyroid Stimulating Hormone 0.69 uIU/mL (0.32-4.0)
== END 2024-01-05 08:33 | disposition home or self-care (01) ==
LOC: HO.US 08:32
PROVIDERS: PCP Internal Medicine; Visit Provider Surgery Vascular Surgery
DX: I83.11 Varicose veins of right lower extremity with inflammation (principal); E03.9 Hypothyroidism, unspecified; R73.9 Hyperglycemia, unspecified
CPT/HCPCS: 36415; 80053; 83036; 84439; 84443; 85025; 93970

== ENCOUNTER 2024-02-07 10:56 | Outpatient (AMB) | payer OTHER, SELFPAY ==
--- NOTE | 2024-02-07 10:57 | A.OFFVIS_ITS ---
Intake Visit Reasons: follow up [facility] 01/05/2024 Intake Note: Patient presents for follow up [facility] . States legs feel the same , no new complaints. Accompanied by: Self / Same As Patient Allergies No Known Allergies Allergy (Verified 02/07/24 10:59) [facility] HPI follow up [facility] 01/05/2024: Details: Very pleasant 43-year-old female presents for follow-up regarding venous insufficiency. She does have some mildly swollen legs but she mostly complains of her spider telangiectasias which have been a source of pain and discomfort for her. She now presents for routine follow-up with venous insufficiency testing. [facility] Medical History Screen for sexually transmitted diseases HPV test positive Vitamin D deficiency Hypercholesterolemia Obesity (BMI 30-39.9) Hypothyroidism Anemia Surgical History History of umbilical hernia repair History of History of endometrial ablation Tubal ligation status Family History Father Diabetes HTN (hypertension) High cholesterol Myocardial infarct Mother Lymphoma Maternal Aunt Colon cancer Social History Household Members: Spouse, Family and Children Housing: House Do you presently have visiting nurse or other home services: No Alcohol intake: never Patient Tobacco Use Status: Never used Tobacco e-Cigarette/Vaping Use: Never Used Second Hand Smoke Exposure: No service: No Current occupational status: employed Cognitive needs: No Hearing needs: No Vision needs: Yes (glasses) Female Reproductive History Menstrual Age of Menarche: 11 Review of Systems Const All systems reviewed & are unremarkable except as noted in HPI and below Reports no additional complaints ENT Reports Normal hearing present Card Denies chest pain, Denies chest pain at rest, Denies chest pain with activity and Denies pedal edema Resp Denies cough GI Denies abdominal pain Musc Denies abnormal gait, Denies muscle cramps and Denies radiating pain into limb Skin/Breast Denies skin ulcer and Denies wounds Neuro Reports Normal hearing present and Denies abnormal gait Psych Reports no additional complaints Physical Exam Const General: cooperative, healthy appearing and comfortable Orientation/consciousness: oriented to person, oriented to place and oriented to time HEENT Head: Yes normal to inspection Neck Neck: Yes normal visual inspection Carotids: no bruits Chest Chest palpation & inspection: normal inspection of the chest Resp Effort & Inspection: normal respiratory effort and able to speak in complete sentences Auscultation: clear to auscultation bilaterally, no crackles, no rales, no rhonchi and no wheezes Cardio Rate: regular rate Rhythm: regular rhythm Heart sounds: S1 normal heart sound present and S2 normal heart sound present Bruits: no carotid bruits Peripheral pulses: Peripheral pulses 2+ throughout GI Inspection: Yes normal to inspection Skin Wounds: no wounds Hair: normal Neuro General: oriented to person, oriented to place and oriented to time Cranial nerves: Yes CN's II-XII intact bilaterally and Yes Normal hearing present Cognition (Neuro): normal cognition Motor exam (neuro): 5/5 motor strength present throughout Extrem Other: venous exam: +1 edema with spider telangiectasias General: No clubbing, No cyanosis and Yes edema Psych Appearance: grossly normal Mental Status: mental status grossly normal Speech and movement: Normal speech and movement present Results Reviewed Results Reviewed: Brief summary of venous insufficiency testing is as follows: right great saphenous vein: negative right small saphenous vein: negative right accessory vein: none present left great saphenous vein: negative left small saphenous vein: negative left accessory vein: none present Please note there is no evidence of any venous aneurysms or significant tortuosity Assessment & Plan Assessment & Plan (1) Varicose veins of right lower extremity with inflammation: Code(s): I83.11 - Varicose veins of right lower extremity with inflammation Category: Medical Plan: In short patient is negative for any significant venous insufficiency. We did discuss routine conservative measures including compression elevation and exercise. She will follow up with us on an as-needed basis. Thank you for allowing us to assist in her care. If there are any questions or concerns please do not hesitate to contact us Coding Level of Care Code Est Pt Level 4 (76030) Diagnoses Varicose veins of right lower extremity with inflammation I83.11
== END 2024-02-07 11:13 | disposition home or self-care (01) ==
PROVIDERS: PCP Internal Medicine; Visit Provider Surgery Vascular Surgery
DX: I83.11 Varicose veins of right lower extremity with inflammation (principal)
CPT/HCPCS: 99213

== ENCOUNTER → 2024-02-07 10:56 | Outpatient (BNVA) | payer OTHER, SELFPAY | PROVIDERS: PCP Internal Medicine; Visit Provider Surgery Vascular Surgery ==

== ENCOUNTER 2024-02-08 14:54 | Outpatient (AMB) | payer OTHER, SELFPAY ==
--- NOTE | 2024-02-08 15:00 | A.OFFVIS_ITS ---
Vital Signs 02/08/24 15:02 Height 5 ft Weight 167 lb 8.821 oz BMI 32.7 BP 126/67 Blood Pressure Location Lt brachial Position Sitting Pulse 66 Intake Visit Reasons: Noninfective gastroenteritis and colitis Intake Note: Malia presents in the office as a new patient for gastroenteritis and colitis. CC: She states that she was diagnosed and has some inflmation. Has chronic pains but today she is okay. Constipation and diarrhea on and off. States that the ab domen pains are in the lower part of her stomach. Allergies No Known Allergies Allergy (Verified 02/08/24 15:02) HPI HPI Noninfective gastroenteritis and colitis: Details: 43-year-old female with past medical history of thrombocytopenia, transaminitis, umbilical hernia, hypothyroidism, hypercholesteremia is here today for initial consultation. Patient was diagnosed with colitis back in May of 2023. Patient has not follow-up with GI as recommended by ED provider. 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 Patient denies any family history of IBD. Thickening was actually found around ileocecal valve in terminal ileum. Patient admits to having postprandial abdominal pain and bloating. Irregular bowel movements sometimes loose stools postprandially and sometimes. Patient reports that her pains are usually on the right lower and left lower quadrant. Patient thought that her pain were related to her ovaries, however was re-evaluated by heel room supervisor and is following up with us. Patient denies any nausea or vomiting. Reports that her abdominal pain does not happen all the time, however depending on what she eats. [facility] Medical History Screen for sexually transmitted diseases HPV test positive Vitamin D deficiency Hypercholesterolemia Obesity (BMI 30-39.9) Hypothyroidism Anemia Surgical History History of umbilical hernia repair History of History of endometrial ablation Tubal ligation status Family History Father Diabetes HTN (hypertension) High cholesterol Myocardial infarct Mother Lymphoma Maternal Aunt Colon cancer Social History Household Members: Spouse, Family and Children Housing: House Do you presently have visiting nurse or other home services: No Alcohol intake: never Patient Tobacco Use Status: Never used Tobacco e-Cigarette/Vaping Use: Never Used Second Hand Smoke Exposure: No service: No Current occupational status: employed Cognitive needs: No Hearing needs: No Vision needs: Yes (glasses) Female Reproductive History Menstrual Age of Menarche: 11 Review of Systems Const Denies weight gain and Denies weight loss ENT Reports no additional complaints, Denies dysphagia and Denies odynophagia Card Reports no additional complaints Resp Reports no additional complaints GI Reports abdominal pain (LLQ, RLQ), Denies belching, Denies melena, Reports bloating, Denies change in bowel habits, Reports constipation, Denies dysphagia, Denies excessive flatus, Denies dyspepsia, Denies heartburn, Denies diarrhea, Reports loose stools, Denies nausea, Denies odynophagia and Denies vomiting Reports no additional complaints Musc Reports no additional complaints Neuro Reports no additional complaints Psych Reports no additional complaints Endo Reports no additional complaints Physical Exam Vital Signs: Last Vital Signs Pulse 66 02/08/24 15:02 BP 126/67 02/08/24 15:02 BMI result Body Mass Index 32.7 Const General: healthy appearing and no acute distress Nutritional Appearance: obese Orientation/consciousness: patient oriented x3 Resp Effort & Inspection: normal respiratory effort, able to speak in complete sentences, no tracheal deviation and symmetric chest movement Auscultation: clear to auscultation bilaterally Cardio Rate: regular rate GI Inspection: Yes normal to inspection, No distended and Yes obesity Palpation (GI): Soft to palpation, not firm, nontender and No hepatosplenomegaly present Auscultation: normal bowel sounds General: Yes no CVA tenderness Back/Spine/Pelvis Back: no CVA tenderness Skin General skin exam: elasticity normal, turgor normal and dry skin Neuro General: patient oriented x3 Psych Appearance: grossly normal Mental Status: mental status grossly normal Results Reviewed Results Reviewed: CT of abdomen and pelvis 06/18/2023 ED VISIT FINDINGS: LUNG BASES: There are bilateral dependent atelectasis. LIVER, GALLBLADDER, AND BILIARY TREE: The liver is normal in size, shape, and attenuation. No focal hepatic lesion or biliary ductal dilatation is present. The gallbladder is unremarkable with no evidence of radiopaque gallstones, gallbladder wall thickening, or obvious pericholecystic inflammatory changes. PANCREAS: Unremarkable. SPLEEN: Unremarkable. ADRENAL GLANDS: Unremarkable. KIDNEYS AND URETERS: The kidneys are normal in size, shape, and attenuation. No hydronephrosis, hydroureter, or calculi seen. No perinephric stranding. BLADDER: Unremarkable. GASTROINTESTINAL TRACT: There is circumferential thickening of the terminal ileum and ileocecal valve normal appendix visualized. Ascending colon, transverse colon, descending colon, sigmoid colon are unremarkable. ABDOMINAL WALL: No significant hernia is appreciated. LYMPH NODES: Normal. VASCULAR: Unremarkable. PELVIC VISCERA: The multiple follicles in both ovaries. There is possibly arcate uterus. OSSEOUS STRUCTURES: Unremarkable. CT/CT abdomen pelvis w IV con IMPRESSION: Circumferential thickening of the terminal ileum and ileocecal valve, Correlate clinically for inflammatory bowel disease such as Crohn's disease. Assessment & Plan Assessment & Plan (1) Colitis: Code(s): K52.9 - Noninfective gastroenteritis and colitis, unspecified Category: Medical (2) RLQ abdominal pain: Code(s): R10.31 - Right lower quadrant pain Category: Medical (3) LLQ abdominal pain: Code(s): R10.32 - Left lower quadrant pain (4) Diarrhea: Code(s): R19.7 - Diarrhea, unspecified Qualifiers: Diarrhea type: functional diarrhea Qualified Code(s): K59.1 - Functional diarrhea (5) Chronic idiopathic constipation: Code(s): K59.04 - Chronic idiopathic constipation Plan Will rule out IBD, malabsorption. Patient will be sent for enterography to evaluate the entire small intestine. Colitis/ileitis seen in terminal ileum and at ileocecal valve. If patient has Crohn's she will need to be placed on medication and go for colonoscopy at some point. Patient was encouraged to take MiraLax daily. Increase fluid intake and activity to promote better bowel motility. Patient will return in 4 months, sooner on as needed basis. She is agreeable to this plan and verbalizes understanding of instructions. She was given the opportunity to ask questions and all questions answered. Thank you for allowing me to participate in her care Orders: Orders Vitamin B12 and Folate Today R19.7 - Diarrhea, unspecified Calprotectin, Fecal Today R15.9 - Full incontinence of feces C Reactive Protein Today K58.9 - Irritable bowel syndrome without diarrhea Vitamin D 25-OH (D2 and D3) Today E55.9 - Vitamin D deficiency, unspecified CT enterography Today K52.9 - Noninfective gastroenteritis and colitis, unspecified, R10.9 - Unspecified abdominal pain Medications: New polyethylene glycol 3350 (Miralax) 17 grams PO DAILY 510 grams 2RF Coding Level of Care Code New Pt Level 4 (99044) Diagnoses Colitis K52.9 RLQ abdominal pain R10.31 LLQ abdominal pain R10.32 Functional diarrhea K59.1 Diarrhea type: functional diarrhea Chronic idiopathic constipation K59.04 Time Spent (min) 45 Comment 30 minutes spent with patient and additional 10 minutes spent reviewing her records
[2024-02-08 15:02] VITALS: BP 126/67; PULSE 66; BMI 32.7
== END 2024-02-08 15:33 | disposition home or self-care (01) ==
PROVIDERS: PCP Internal Medicine; Visit Provider Nurse Practitioner Family
DX: K58.2 Mixed irritable bowel syndrome (principal); R10.31 Right lower quadrant pain; R10.32 Left lower quadrant pain
CPT/HCPCS: 99204

== ENCOUNTER → 2024-02-08 14:54 | Outpatient (BNVA) | payer OTHER, SELFPAY | PROVIDERS: PCP Internal Medicine; Visit Provider Nurse Practitioner Family ==

== ENCOUNTER 2024-04-12 12:07 | Outpatient (REF) | payer OTHER, SELFPAY ==
[2024-04-12 12:25] LABS: MANUAL DIFF FLAG NO
[2024-04-12 12:48] LABS: Basophils Percent Auto 0.6 % (0-2); Eosinophils Absolute Auto 0.1 X10*3/uL (0.0-0.4); Hematocrit 38.6 % (37.0-47.0); Hemoglobin 13.1 g/dl (12.0-16.0); Imm Gran Abs Auto 0.02 X10*3/uL (0.00-0.03); Imm Gran Pct Auto 0.3 % (0.0-0.4); Lymphocytes Percent Auto 46.4 % (20-40); Mean Corpuscular HGB Conc 33.9 g/dl (31.0-35.0); Mean Corpuscular Volume 91.5 fL (80.0-98.0); Mean Platelet Volume 10.2 fL (9.4-12.3); Monocytes Absolute Auto 0.5 X10*3/uL (0.1-1.2); Neutrophils Absolute Auto 2.8 x10*3/uL (2.0-8.3); Neutrophils Percent Auto 43.7 % (45-73); Platelet Count 276 X10*3/uL (160-400); Red Blood Count 4.22 X10*6/uL (4.20-5.50); Red Cell Distribution Width 13.2 % (11.0-16.0); White Blood Count 6.5 X10*3/uL (4.8-10.8)
[2024-04-12 13:37] LABS: Alanine Aminotransferase 13 U/L (0-31); Albumin Level 4.1 g/dL (3.5-5.0); Alkaline Phosphatase 62 U/L (39-117); Anion Gap 13 (12-20); Aspartate Amino Transferase 13 U/L (5-31); Bilirubin Total 0.4 mg/dL (0.0-1.0); Blood Urea Nitrogen 12 mg/dL (9-16); Calcium 9.3 mg/dL (8.4-10.2); Carbon Dioxide 24 mmol/L (22-29); Chloride 107 mmol/L (96-108); Cholesterol 211 mg/dL (<200); Estimated Glomerular Filt Rate > 60; Glucose Random 93 mg/dL (60-115); HDL Cholesterol 43 mg/dL (>40); LDL Cholesterol Calculated 154 mg/dL (<100); Potassium 4.3 mmol/L (3.3-5.1); Sodium 140 mmol/L (135-145); Total Protein 6.9 g/dL (6.5-8.0); Triglycerides 70 mg/dL (<150)
[2024-04-12 13:58] LABS: Free T4 (Free Thyroxine) 0.91 ng/dL (0.71-1.85); Thyroid Stimulating Hormone 2.19 uIU/mL (0.32-4.0); Vitamin D 25-OH Total 32.2 ng/mL (>30)
[2024-04-12 14:22] LABS: Folate 9.2 ng/mL (> or = 4.0); Vitamin B12 453 pg/mL (200-900)
== END 2024-04-12 12:08 | disposition home or self-care (01) ==
LOC: HO.LAB 12:07
PROVIDERS: PCP Internal Medicine; Visit Provider Internal Medicine
DX: E78.00 Pure hypercholesterolemia, unspecified (principal)
CPT/HCPCS: 36415; 80053; 80061; 82306; 82607; 82746; 84439; 84443; 85025

== ENCOUNTER 2024-04-13 11:36 | Outpatient (AMB) | payer OTHER, SELFPAY ==
[2024-04-13 11:37] VITALS: BP 104/82; PULSE 78; O2SAT 98; BMI 32.2
--- NOTE | 2024-04-13 11:37 | MHC.PC.OV ---
Vital Signs 04/13/24 11:37 Height 5 ft Weight 165 lb 0.1 oz BMI 32.2 BP 104/82 Blood Pressure Location Lt brachial Position Sitting Pulse 78 Pulse Source Pulse Oximeter Pulse Oximetry (%) 98 Oxygen Delivery Method Room Air Intake Visit Reasons: pe Intake Note: Patient is here today for a physical. 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 Patient's mammogram is up-to-date review of the notes has seen gastroenterology in January [address] scan showing circumferential thickening of the terminal ileum and ileocecal valve. Advised enterography. Patient also has varicose veins and do was seen by the vascular surgeon workup reveals negative for any significant venous insufficiency. Discussed conservative measures. [facility] Medical History (Updated 04/13/24 @ 11:51 by Tom Gage MD) Cervical cancer screening Breast cancer screening Well woman exam with routine gynecological exam Elevated blood sugar Skin tag RLQ abdominal pain Deep dyspareunia Chronic pain syndrome Chronic pelvic pain in female Gram-negative bacteremia Elevated LFTs Thrombocytopenia Abnormal CBC Pelvic pain Umbilical hernia Elevated LFTs COVID-19 virus infection Screen for sexually transmitted diseases HPV test positive Vitamin D deficiency Hypercholesterolemia Obesity (BMI 30-39.9) Hypothyroidism Anemia Surgical History History of umbilical hernia repair History of History of endometrial ablation Tubal ligation status Family History Father Diabetes HTN (hypertension) High cholesterol Myocardial infarct Mother Lymphoma Maternal Aunt Colon cancer Social History (Updated 04/13/24 @ 11:57 by Tom Gage MD) Household Members: Spouse, Family and Children Housing: House Do you presently have visiting nurse or other home services: No Alcohol intake: current Comment: once Q 3 months 1 drinks Patient Tobacco Use Status: Never used Tobacco e-Cigarette/Vaping Use: Never Used Second Hand Smoke Exposure: No service: No Current occupational status: employed Cognitive needs: No Hearing needs: No Vision needs: Yes (glasses) Female Reproductive History Menstrual Age of Menarche: 11 Questionnaire PHQ-9 Over the last 2 weeks, how often have you been bothered by any of the following problems? 1. Little interest or pleasure in doing things: not at all 2. Feeling down, depressed, or hopeless: not at all 3. Trouble falling or staying asleep, or sleeping too much: not at all 4. Feeling tired or having little energy: not at all 5. Poor appetite or overeating: not at all 6. Feeling bad about yourself - or that you are a failure or have let yourself or your family down: not at all 7. Trouble concentrating on things, such as reading the newspaper or watching television: not at all 8. Moving or speaking so slowly that other people could have noticed. Or the opposite - being so fidgety or restless that you have been moving around a lot more than usual: not at all 9. Thoughts that you would be better off or of hurting yourself in some way: not at all Total score: 0 Depression Screening Interpretation: Negative Depression Screening Done: Yes Source: Developed by Drs. Gunnar La, Haley Moran, Yimi Patton and colleagues, with an educational markie from [employer]. Thrive Questionnaire Date Thrive assessed: 11/28/23 AUDIT C Alcohol Use Questionnaire (AUDIT-C) 1. How often do you have a drink containing alcohol?: Monthly or less 2. How many drinks containing alcohol do you have on a typical day when you are drinking?: 1 or 2 Total Score: 1 SWETHA-7 AMB Questionnaire SWETHA-7 Date SWETHA - 7 assessed: 11/28/23 Feeling nervous, anxious, or on edge: 0 = Not at all Not being able to stop or control worryin = Not at all Worrying too much about different things: 0 = Not at all Trouble relaxin = Not at all Being so restless that it is hard to sit still: 0 = Not at all Becoming easily annoyed or irritable: 0 = Not at all Feeling afraid as if something awful might happen: 0 = Not at all Total SWETHA-7 score (0-4 normal; 5-9 mild; 10-14 moderate; 15-21 severe): 0 Source: Developed by Drs. Gunnar La, Haley Moran, Yimi Patton and colleagues, with an educational markie from [employer]. Review of Systems Const Denies poor appetite and Denies weakness Eyes Denies no additional complaints ENT Reports Normal hearing present, Denies dizziness, Denies nasal congestion, Denies tinnitus and Denies sore throat Card Denies chest pain, Denies syncope, Denies rapid heart rate and Denies dyspnea Resp Denies cough and Denies dyspnea GI Denies change in stool character, Reports constipation, Denies diarrhea, Denies nausea and Denies vomiting Denies urinary frequency, Denies difficulty voiding and Denies dysuria Neuro Reports Normal hearing present, Denies confusion, Denies dizziness, Denies syncope and Denies weakness Psych Denies confusion Physical exam (Primary Care) Vital Signs: Last Vital Signs Pulse 78 04/13/24 11:37 BP 104/82 04/13/24 11:37 Pulse Ox 98 04/13/24 11:37 Oxygen Delivery Method Room Air 04/13/24 11:37 BMI result Body Mass Index 32.2 Tobacco/Smoking Status: Tobacco use Status Tobacco use date assessed 04/13/24 04/13/24 11:37 Patient Tobacco Use Status Never used Tobacco 04/13/24 11:37 Tobacco use type 11/03/21 11:55 e-Cigarette/Vaping Use Never Used 04/13/24 11:37 PHQ-9: PHQ-9 Score PHQ-9: Total score 0 04/13/24 11:41 Depression Screening Interpretation: Negative Thrive Assessment: Date of Thrive Assessment Date Thrive assessed 11/28/23 04/13/24 11:37 Const General: No confusion Orientation/consciousness: No confusion HENMT Head: Yes normocephalic Ears: external ears normal and TM's normal bilaterally Face and sinus: Yes normal facial exam Mouth: moist mucous membranes Throat: Yes tonsils normal Eyes Conjunctivae: conjunctivae normal Pupils: Equal, round and reactive pupils present and Pupil accommodation reflex normal Direct Ophthalmoscopy: normal light reflex Neck Neck: No lymphadenopathy Thyroid: Thyroid normal Chest Chest palpation & inspection: normal inspection of the chest Resp Effort & Inspection: normal respiratory effort and no audible wheezes Auscultation: clear to auscultation bilaterally, no crackles, no wheezes and lung sounds not diminished Cardio Rate: regular rate Rhythm: regular rhythm Peripheral pulses: radial pulses present and dorsalis pedis present GI Palpation (GI): no masses Auscultation: normal bowel sounds and normoactive bowel sounds Rectal Exam - Female: deferred Skin General skin exam: no rashes or lesions noted Rashes: no rashes Neuro General: No confusion Cranial nerves: Yes Equal, round and reactive pupils present and Yes Normal hearing present Cognition (Neuro): normal cognition Gait exam (Neuro): Normal gait present Motor exam (neuro): 5/5 motor strength present throughout Deep tendon reflexes (DTR's): Right brachioradialis reflex intensity grade: 2+, Left brachioradialis reflex intensity grade: 2+, Right patellar reflex intensity grade: 2+ and Left patellar reflex intensity grade: 2+ Extrem General: No edema Assessment and Plan Assessment & Plan (1) Annual physical exam: Code(s): Z00.00 - Encounter for general adult medical examination without abnormal findings Plan: Patient is advised to eat healthy, keep well hydrated, keep active and have adequate sleep. (2) Hypothyroidism: Comment: hyperthyroidism status post iodine ablation Code(s): E03.9 - Hypothyroidism, unspecified Qualifiers: Hypothyroidism type: acquired Qualified Code(s): E03.9 - Hypothyroidism, unspecified Plan: Continue with thyroid medication (3) Obesity (BMI 30-39.9): Code(s): E66.9 - Obesity, unspecified Plan: Diet and exercise (4) Hypercholesterolemia: Code(s): E78.00 - Pure hypercholesterolemia, unspecified Plan: Avoid fried foods, chicken skin, eggs, butter margarine, pastries and meat. Be it pork or beef they have a lot of cholesterol LDL goal of less than 130 and triglyceride of less than 150 (5) Colitis: Code(s): K52.9 - Noninfective gastroenteritis and colitis, unspecified Plan: Patient is being seen by Gastroenterology and workup pending (6) Varicose veins of bilateral lower extremities with other complications: Code(s): I83.893 - Varicose veins of bilateral lower extremities with other complications Plan: When sitting down elevate the legs, exercise, and support stockings patient has had test with no significant vascular disease and has advised conservative measures (7) Generalized anxiety disorder: Comment: Declined counseling Code(s): F41.1 - Generalized anxiety disorder Plan: Continue with present medication Coding Level of Care Code Est Pt Prev Care 40-64y(28210) Diagnoses Annual physical exam Z00.00 Acquired hypothyroidism E03.9 Hypothyroidism type: acquired Obesity (BMI 30-39.9) E66.9 Hypercholesterolemia E78.00 Colitis K52.9 Varicose veins of bilateral lower extremities with other complications I83.893 Generalized anxiety disorder F41.1
== END 2024-04-13 12:04 | disposition home or self-care (01) ==
PROVIDERS: PCP Internal Medicine; Visit Provider Internal Medicine
DX: Z00.00 Encounter for general adult medical examination without abnormal findings (principal); E03.9 Hypothyroidism, unspecified; E66.9 Obesity, unspecified; Z68.32 Body mass index [BMI] 32.0-32.9, adult; E78.00 Pure hypercholesterolemia, unspecified; K52.9 Noninfective gastroenteritis and colitis, unspecified; I83.893 Varicose veins of bilateral lower extremities with other complications; F41.1 Generalized anxiety disorder
CPT/HCPCS: 99396

== ENCOUNTER 2024-04-17 10:10 | Outpatient (REF) | payer OTHER, SELFPAY ==
--- NOTE | ~2024-04-17 | CT_ITS ---
EXAMINATION: CT ENTEROGRAPHY ABDOMEN AND PELVIS WITH CONTRAST CLINICAL INFORMATION: Noninfective gastroenteritis and colitis, unspecified COMPARISON: CT abdomen and pelvis 06/22/2023 TECHNIQUE: Study performed with oral VoLumen (1350 mL) and 480 mL of water to distend the abdomen. The patient was injected with 85 mL Omnipaque 350 intravenous contrast which was administered without adverse effect. Coronal and sagittal reformatted images were obtained at the technologist's workstation. This CT examination was performed using dose optimization techniques as appropriate, variously including the following: *Automated exposure control *Adjustment of mA and/or kV according to patient size (this includes techniques or standardized protocols for targeted exams where dose is matched to indication/reason for exam; i.e. extremities or head) *Use of iterative reconstruction technique DLP: 393 mGy-cm FINDINGS: GASTROINTESTINAL FINDINGS: Stomach: Well-distended and normal in appearance. Small intestine: Satisfactorily distended and normal in appearance. Large intestine: Moderate colonic stool burden with fluid contents. No pericolonic inflammatory changes. No perirectal changes demonstrated. The appendix is normal. Additional findings: No abnormal enhancement of the vasa recta or significant mesenteric or retroperitoneal lymphadenopathy is seen. No abdominal abscess or fistulous tract demonstrated. ABDOMINAL AND PELVIC CT FINDINGS: Liver, gallbladder, biliary tract: The liver is normal in size shape and attenuation. Focal hypoattenuation along the falciform ligament may be related to focal fat infiltration. Otherwise no focal hepatic lesion. There is no biliary ductal dilation. The gallbladder is partially contracted limiting evaluation. There is no evidence of radiopaque gallstones or pericholecystic inflammatory changes. Pancreas: Unremarkable Spleen: Unremarkable Adrenal glands and kidneys: Bilateral adrenal glands are unremarkable. Symmetric nephrograms. No renal calculus or hydronephrosis. Ureters and bladder: No hydroureter. Urinary bladder is well-distended and appears unremarkable. Pelvis: Approximately 2.7 cm hypoattenuating lesion in the left aspect of the lower uterine segment/cervix likely compatible with an intramural fibroid 1.9 cm simple left ovarian cyst, for which no dedicated orbital imaging is required. Lymphovascular structures: The abdominal aorta is normal in caliber. No [id number] lymphadenopathy. Bones: No acute or suspicious osseous abnormality. Lung bases: Unremarkable CT/CT enterography IMPRESSION: No acute abdominopelvic abnormality. No definite findings to suggest infectious or inflammatory enteritis or colitis. Liquid stool throughout the colon can be seen with diarrhoeal disease. Approximately 2.7 cm left lower uterine segment/cervical intramural fibroid. Electronically signed by: Kelvin Mireles MD 05/17/2024 11:02 AM EDT
[2024-04-17] MEDS: iohexoL 350 MG/ML 100 ML INFUS..BTL 85 ML IV (11:57)
[2024-04-17] MEDS: Sorbitol/Mannit/Xanth Imaging 500 ML LIQUID 1500 ML PO (11:58)
== END 2024-04-17 10:11 | disposition home or self-care (01) ==
LOC: HO.CT 10:10
PROVIDERS: PCP Internal Medicine; Visit Provider Nurse Practitioner Family
DX: R10.9 Unspecified abdominal pain (principal); K52.9 Noninfective gastroenteritis and colitis, unspecified
CPT/HCPCS: 74177; Q9967

== ENCOUNTER 2024-06-01 13:46 | Outpatient (AMB) | payer OTHER, SELFPAY ==
--- NOTE | 2024-06-01 13:47 | MHC.PC.OV ---
Vital Signs 06/01/24 13:54 Height 5 ft Weight 165 lb 2 oz BMI 32.2 BP 118/82 Blood Pressure Location Rt brachial Position Sitting Respiration 16 Pulse 65 Pulse Source Pulse Oximeter Temp 98.3 F Temp Source Oral Pulse Oximetry (%) 98 Oxygen Delivery Method Room Air Intake Visit Reasons: vaginal white discharge/ foul order Intake Note: patient here c/o vaginal discharge and foul order Rock Loader Required: No Is last menstrual period known: No Post menopausal: No Patient : No Allergies No Known Allergies Allergy (Verified 06/01/24 14:00) Medication List - Last Reconciled 06/01/24 by Maya Potter CNP ferrous sulfate 325 mg PO DAILY hydroxyzine HCl 25 mg PO TID PRN levothyroxine 88 mcg PO take once a day fro 6 days a week; polyethylene glycol 3350 (Miralax) 17 grams PO DAILY Tobacco use date assessed: 06/01/24 Dental Screening Dental Screen Date: 06/01/24 Did you have a dental visit in the last 12 months?: Yes Did you have a dental problem in the last 6 months where you did not have access to dental care?: No Was dental information given to patient?: Patient has dentist HPI HPI Comments History of Present Illness Details 44-year-old female presents with complaints of foul odor vaginal discharge for the past 2-3 weeks. She describes the order as fishy. She admits to using scented vaginal product and douching. She notes that she has a new sexual partner for about 2 months. She has been having sexual intercourse with no barrier. She has tried Monistat and home remedies without improvement. She notes h/o heavy menstrual bleeding. She had uterine ablation in 2019 and has not had a menstrual cycle since. However, 2-3 days ago, she has been noticing small amount of dark red blood with every time she wipes after urinating. She denies vaginal pain or urinary symptoms. 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 [facility] Medical History (Updated 06/01/24 @ 14:27 by Maya Potter CNP) Cervical cancer screening Breast cancer screening Well woman exam with routine gynecological exam Elevated blood sugar Skin tag RLQ abdominal pain Deep dyspareunia Chronic pain syndrome Chronic pelvic pain in female Gram-negative bacteremia Elevated LFTs Thrombocytopenia Abnormal CBC Pelvic pain Umbilical hernia Elevated LFTs COVID-19 virus infection Screen for sexually transmitted diseases HPV test positive Vitamin D deficiency Hypercholesterolemia Obesity (BMI 30-39.9) Hypothyroidism Anemia Surgical History History of umbilical hernia repair History of History of endometrial ablation Tubal ligation status Family History Father Diabetes HTN (hypertension) High cholesterol Myocardial infarct Mother Lymphoma Maternal Aunt Colon cancer Social History (Updated 04/13/24 @ 11:57 by Tom Gage MD) Household Members: Spouse, Family and Children Housing: House Do you presently have visiting nurse or other home services: No Alcohol intake: never Comment: once Q 3 months 1 drinks Patient Tobacco Use Status: Never used Tobacco e-Cigarette/Vaping Use: Never Used Second Hand Smoke Exposure: No service: No Current occupational status: employed Cognitive needs: No Hearing needs: No Vision needs: Yes (glasses) Female Reproductive History Menstrual Age of Menarche: 11 Questionnaire Thrive Questionnaire Date Thrive assessed: 11/28/23 SWETHA-7 AMB Questionnaire SWETHA-7 Date SWETHA - 7 assessed: 11/28/23 Source: Developed by Drs. Gunnar La, Haley Moran, Yimi Patton and colleagues, with an educational markie from [employer]. Review of Systems Const Details: Const Denies chills, Denies fatigue, Denies fever(s), Denies headache(s) and Denies weakness ENT Denies dizziness and Denies headache(s) Card Denies chest pain, Denies lightheadedness, Denies dyspnea and Denies other (Palpitations) Resp Denies cough, Denies dyspnea, Denies wheezing and Denies other ( shortness of breath) GI Denies abdominal pain, Denies melena, Denies hematochezia, Denies change in bowel habits, Denies dyspepsia and Denies nausea Reports as per HPI Musc Denies abnormal gait, Denies myalgias, Denies arthralgias, Denies numbness and Denies tingling Skin/Breast Denies rash, Denies unusual bruising and Denies wounds Neuro Denies abnormal gait, Denies dizziness, Denies headache(s), Denies memory loss, Denies numbness, Denies Sensory deficit (Neuro), Denies tingling and Denies weakness Psych Denies anxiety, Denies depression, Denies memory loss Endo Denies cold intolerance, Denies fatigue, Denies heat intolerance, Denies polydipsia and Denies polyuria Aller/Immun Denies wheezing Physical exam (Primary Care) Tobacco/Smoking Status: Tobacco use Status Tobacco use date assessed 04/13/24 04/13/24 11:37 Patient Tobacco Use Status Never used Tobacco 04/13/24 11:57 Tobacco use type 11/03/21 11:55 e-Cigarette/Vaping Use Never Used 04/13/24 11:57 Thrive Assessment: Date of Thrive Assessment Date Thrive assessed 11/28/23 04/13/24 11:37 Const Other: General: no acute distress and well developed Nutritional Appearance: well nourished Orientation/consciousness: patient oriented x3 HENMT Head: Yes normocephalic and Yes atraumatic Eyes General: appearance normal, both eyes and all related structures Pupils: Equal, round and reactive pupils present EOM: EOMs intact bilaterally Resp Effort & Inspection: normal respiratory effort Auscultation: clear to auscultation bilaterally Cardio Rate: regular rate Rhythm: regular rhythm Heart sounds: S1 normal heart sound present, S2 normal heart sound present, no gallops, no murmurs and no rubs GI Palpation (GI): No Abdominal aortic bruit present, Soft to palpation, nontender, No hepatosplenomegaly present and No Rebound tenderness present Auscultation: normal bowel sounds General: Yes no CVA tenderness Blood noted on vaginal sample swab. No vaginal odor noted Back/Spine/Pelvis Back: no CVA tenderness Cervical Spine: cervical ROM normal and No Cervical spine tenderness Thoracic/Lumbar Spine: thoraco-lumbar ROM normal, No pain with thoraco-lumbar ROM, No thoracic spinal tenderness and No lumbar spinal tenderness Extrem General: Yes normal to inspection, No edema and No calf tenderness Skin General: warm and dry. Normal skin color. Normal skin turgor Neuro General: patient oriented x3, gait normal and no focal neuro deficit Cranial nerves: Yes Equal, round and reactive pupils present Cognition (Neuro): normal cognition Gait exam (Neuro): Normal gait present Sensory Exam: No Sensory deficit (Neuro) Psych Appearance: grossly normal Affect: normal affect Attitude: cooperative Thought process: Normal thought process present Assessment and Plan Assessment & Plan (1) Vaginal discharge: Code(s): N89.8 - Other specified noninflammatory disorders of vagina Plan: Vaginal discharge and fishy odor for the past 2-3 weeks Blood noted on vaginal sample swab. No vaginal odor noted Likely BV, although vaginal candidiasis, trichomoniasis, or STD is possible Vaginal swab collected and will be sent to the lab for BV testing. Forest Resource Specialist present during sample collection Flagyl ordered. Advised to take as prescribed Vaginal hygiene instructed. Encouraged to avoid douching Encouraged to use barrier contraceptive if symptoms persist STD labs ordered Follow-up with PCP or return with worsening or new signs and symptoms Verbalized understanding and agreed with the plan (2) Vaginal bleeding: Code(s): N93.9 - Abnormal uterine and vaginal bleeding, unspecified Plan: She notes h/o heavy menstrual bleeding for which she had uterine ablation in 2019 and has not had a menstrual cycle since. However, 2-3 days ago, she has been noticing small amount of dark red blood with every time she wipes after urinating. No vaginal pain or urinary symptoms Blood noted on vaginal sample swab. No vaginal odor noted. Encouraged to schedule an appointment with her medicine tech for evaluation of vaginal bleeding. Verbalized understanding and agreed with the plan Orders: Orders HIV Ab/Ag Today N89.8 - Other specified noninflammatory disorders of vagina Hepatitis B,C Profile Today N89.8 - Other specified noninflammatory disorders of vagina Syphilis Screen Today N89.8 - Other specified noninflammatory disorders of vagina UA CC w/rflx Micro + Cult Today N89.8 - Other specified noninflammatory disorders of vagina CT NG by PCR Today N89.8 - Other specified noninflammatory disorders of vagina Bacterial Vaginosis Panel Today N89.8 - Other specified noninflammatory disorders of vagina Medications: New metronidazole 500 mg PO BID 7 days 14 tabs 0RF Coding Level of Care Code Est Pt Level 4 (86301) Diagnoses Vaginal discharge N89.8 Vaginal bleeding N93.9
[2024-06-01 13:54] VITALS: BP 118/82; PULSE 65; RESP 16; TEMP 36.8; O2SAT 98; BMI 32.2
== END 2024-06-01 16:12 | disposition home or self-care (01) ==
PROVIDERS: PCP Internal Medicine; Visit Provider Nurse Practitioner Family
DX: N89.8 Other specified noninflammatory disorders of vagina (principal); N93.9 Abnormal uterine and vaginal bleeding, unspecified
CPT/HCPCS: 99214

== ENCOUNTER 2024-06-01 14:34 | Outpatient (REF) | payer OTHER, SELFPAY ==
[2024-06-01 17:52] LABS: Appearance Urine Clear; Color Urine Yellow; Glucose Urine UA Negative (Negative); Leukocyte Esterase Urine Negative (Negative); Nitrite Urine Negative (Negative); PH 5.5 (5.0-9.0); Specific Gravity - Urine 1.015 (1.005-1.025); Urine Blood Negative (Negative); Urine Ketones Negative (Negative); Urine Protein Negative (Neg-Trace)
[2024-06-02 03:42] LABS: CT PCR NOT DETECTED (Not Detect.); NG PCR NOT DETECTED (Not Detect.)
[2024-06-02 10:32] LABS: Bacterial Vaginosis PCR POSITIVE (Negative); Candida Group PCR NOT DETECTED (Not Detect); Candida glab krusei PCR NOT DETECTED (Not Detect); Trichomonas vaginalis PCR NOT DETECTED (Not Detect)
== END 2024-06-01 14:35 | disposition home or self-care (01) ==
LOC: HO.LAB 14:34
PROVIDERS: Visit Provider Nurse Practitioner Family
DX: N89.8 Other specified noninflammatory disorders of vagina (principal)
CPT/HCPCS: 0352U; 81003; 87491; 87591

== ENCOUNTER 2024-06-08 08:13 | Outpatient (AMB) | payer OTHER, SELFPAY ==
--- NOTE | 2024-06-08 08:34 | MHC.PC.OV ---
Vital Signs 06/08/24 08:35 Height 5 ft Weight 162 lb 6 oz BMI 31.7 BP 110/66 Blood Pressure Location Lt brachial Position Sitting Pulse 58 Pulse Source Pulse Oximeter Pulse Oximetry (%) 100 Oxygen Delivery Method Room Air Intake Visit Reasons: swollen LT knee/requesting x-ray Intake Note: Patient is here to follow up on swollen left knee and pain, requesting for xray. E Commerce Merchant Required: No Employment Service Specialist: Not Required per policy Accompanied by: Self / Same As Patient Allergies No Known Allergies Allergy (Verified 06/08/24 08:35) Medication List - Last Reconciled 06/08/24 by Ro Watts PA-C ferrous sulfate 325 mg PO DAILY hydroxyzine HCl 25 mg PO TID PRN levothyroxine 88 mcg PO take once a day fro 6 days a week; metronidazole 500 mg PO BID 7 days polyethylene glycol 3350 (Miralax) 17 grams PO DAILY Tobacco use date assessed: 06/08/24 Dental Screening Dental Screen Date: 06/01/24 HPI swollen LT knee/requesting x-ray HPI Details 44-year-old obese female with hypothyroidism hypercholesterolemia generalized anxiety disorder coming in for acute problem. Patient tells us today that she overused the knee in April and woke up with left knee pain. Last weekend she went to a concert and felt the knee was swollen and painful. Since last week and she has been compensating pain and now feels that the knee is weak and feels like it will give out. No known injury to the knee. [facility] Medical History Cervical cancer screening Breast cancer screening Well woman exam with routine gynecological exam Elevated blood sugar Skin tag RLQ abdominal pain Deep dyspareunia Chronic pain syndrome Chronic pelvic pain in female Gram-negative bacteremia Elevated LFTs Thrombocytopenia Abnormal CBC Pelvic pain Umbilical hernia Elevated LFTs COVID-19 virus infection Screen for sexually transmitted diseases HPV test positive Vitamin D deficiency Hypercholesterolemia Obesity (BMI 30-39.9) Hypothyroidism Anemia Surgical History History of umbilical hernia repair History of History of endometrial ablation Tubal ligation status Family History Father Diabetes HTN (hypertension) High cholesterol Myocardial infarct Mother Lymphoma Maternal Aunt Colon cancer Social History Household Members: Spouse, Family and Children Housing: House Do you presently have visiting nurse or other home services: No Alcohol intake: never Comment: once Q 3 months 1 drinks Patient Tobacco Use Status: Never used Tobacco e-Cigarette/Vaping Use: Never Used Second Hand Smoke Exposure: No service: No Current occupational status: employed Cognitive needs: No Hearing needs: No Vision needs: Yes (glasses) Female Reproductive History Menstrual Age of Menarche: 11 Questionnaire Thrive Questionnaire Date Thrive assessed: 11/28/23 SWETHA-7 AMB Questionnaire SWETHA-7 Date SWETHA - 7 assessed: 11/28/23 Source: Developed by Drs. Gunnar La, Haley Moran, Yimi Patton and colleagues, with an educational markie from [employer]. Review of Systems Const Denies chills and Denies fever(s) ENT Reports no additional complaints Card Denies chest pain and Denies dyspnea Resp Denies dyspnea GI Reports no additional complaints Reports no additional complaints Musc Details: Left-sided knee pain and swelling Skin/Breast Reports system reviewed and no additional complaints, except as documented Physical exam (Primary Care) Vital Signs: Last Vital Signs Pulse 58 06/08/24 08:35 BP 110/66 06/08/24 08:35 Pulse Ox 100 06/08/24 08:35 Oxygen Delivery Method Room Air 06/08/24 08:35 BMI result Body Mass Index 31.7 Tobacco/Smoking Status: Tobacco use Status Tobacco use date assessed 06/08/24 06/08/24 08:39 Patient Tobacco Use Status Never used Tobacco 06/08/24 08:39 Tobacco use type 06/06/24 10:56 e-Cigarette/Vaping Use Never Used 06/08/24 08:39 Thrive Assessment: Date of Thrive Assessment Date Thrive assessed 11/28/23 06/08/24 08:39 Const General: cooperative, healthy appearing, comfortable and no acute distress Orientation/consciousness: patient oriented x3 HENMT Head: Yes normocephalic Ears: hearing grossly normal bilaterally General nose exam: Normal external nose present Eyes General: appearance normal, both eyes and all related structures Conjunctivae: conjunctivae normal Neck Neck: Yes full ROM and Yes no lymphadenopathy Resp Effort & Inspection: normal respiratory effort Auscultation: clear to auscultation bilaterally, no crackles, no rales, no rhonchi and no wheezes Cardio Rate: regular rate Rhythm: regular rhythm Skin General skin exam: no rashes or lesions noted Neuro General: patient oriented x3 Gait exam (Neuro): Normal gait present Extrem Other: Left knee tenderness over medial joint line and very mild swelling without overlying erythema or warmth. Strength, sensation, pulses intact in bilateral lower extremities General: Yes normal to inspection, Yes full ROM and No edema Psych Affect: normal affect Attitude: cooperative Insight: Good insight present (Psych) Judgement: Good judgement present (Psych) Assessment and Plan Assessment & Plan (1) Left knee pain: Code(s): M25.562 - Pain in left knee Plan: We will order for x-ray to evaluate for any abnormality and referral to physical therapy placed today. Advised patient to continue using ibuprofen and Tylenol as needed for pain and may use topical creams as well. Follow up as needed for this concern. Plan This note was constructed using voice recognition software. While every effort has been made to ensure accuracy and forestry faculty member, still areas may have been included sometimes these areas may affect the content or meeting of the given symptoms. Total time spent caring for the patient today was 20 minutes. This includes time spent before the visit reviewing the chart, time spent during the visit, and time spent after the visit and documentation. Orders: Orders PT Evaluation and Treatment Today M25.562 - Pain in left knee XR knee LT 2V Today M25.562 - Pain in left knee Coding Level of Care Code Est Pt Level 3 (81488) Diagnoses Left knee pain M25.562
[2024-06-08 08:35] VITALS: BP 110/66; PULSE 58; O2SAT 100; BMI 31.7
== END 2024-06-08 08:56 | disposition home or self-care (01) ==
PROVIDERS: PCP Internal Medicine
DX: M25.562 Pain in left knee (principal)
CPT/HCPCS: 99213

== ENCOUNTER 2024-06-08 08:52 | Outpatient (REF) | payer OTHER, SELFPAY ==
--- NOTE | ~2024-06-08 | XR_ITS ---
EXAMINATION: Left knee series CLINICAL INFORMATION: Pain in left knee COMPARISON: None. TECHNIQUE: 2 views of the left knee upright FINDINGS: The bones joints and soft tissues are normal. No effusion. XR/XR knee LT 2V IMPRESSION: Normal left knee. Electronically signed by: Patricio Garcia MD 06/14/2024 08:22 PM EDT RP
== END 2024-06-08 08:53 | disposition home or self-care (01) ==
LOC: HO.XRAY 08:52
PROVIDERS: PCP Internal Medicine
DX: M25.562 Pain in left knee (principal)
CPT/HCPCS: 73560

== ENCOUNTER 2024-06-15 08:17 | Outpatient (AMB) | payer OTHER, SELFPAY ==
--- NOTE | 2024-06-15 08:27 | MHC.PC.OV ---
Vital Signs 06/15/24 08:28 Height 5 ft Weight 160 lb 2 oz BMI 31.3 BP 120/78 Blood Pressure Location Lt brachial Position Sitting Pulse 73 Pulse Source Pulse Oximeter Pulse Oximetry (%) 98 Oxygen Delivery Method Room Air Intake Visit Reasons: anxiety and depression Intake Note: Patient is here to follow up on Anxiety and Depression. Pig Machine Operator Required: No Signaler: Not Required per policy Accompanied by: Self / Same As Patient Allergies No Known Allergies Allergy (Verified 06/15/24 08:28) Tobacco use date assessed: 06/15/24 Dental Screening Dental Screen Date: 06/01/24 HPI anxiety and depression HPI Details 44-year-old obese female with hypothyroidism hypercholesterolemia generalized anxiety disorder coming in for follow-up. Last seen in June 08 for left knee pain patient's mammogram is up-to-date. X-ray of the left knee done in June 14-. May 17 CT enterography of the abdomen and pelvis done showing no acute abdominal pelvic abnormality liquid stool throughout the colon seen with diarrheal disease is but no infectious/inflammatory enteritis noted. March 2024 and feeling bad and cannot concentrate- called [facility] line and awaiting - patient cannot concentrate on work , has children also to take care , not suicidal. has a forms [facility] Medical History Cervical cancer screening Breast cancer screening Well woman exam with routine gynecological exam Elevated blood sugar Skin tag RLQ abdominal pain Deep dyspareunia Chronic pain syndrome Chronic pelvic pain in female Gram-negative bacteremia Elevated LFTs Thrombocytopenia Abnormal CBC Pelvic pain Umbilical hernia Elevated LFTs COVID-19 virus infection Screen for sexually transmitted diseases HPV test positive Vitamin D deficiency Hypercholesterolemia Obesity (BMI 30-39.9) Hypothyroidism Anemia Surgical History History of umbilical hernia repair History of History of endometrial ablation Tubal ligation status Family History Father Diabetes HTN (hypertension) High cholesterol Myocardial infarct Mother Lymphoma Maternal Aunt Colon cancer Social History Household Members: Spouse, Family and Children Housing: House Do you presently have visiting nurse or other home services: No Alcohol intake: never Comment: once Q 3 months 1 drinks Patient Tobacco Use Status: Never used Tobacco e-Cigarette/Vaping Use: Never Used Second Hand Smoke Exposure: No service: No Current occupational status: employed Cognitive needs: No Hearing needs: No Vision needs: Yes (glasses) Female Reproductive History Menstrual Age of Menarche: 11 Questionnaire PHQ-9 Over the last 2 weeks, how often have you been bothered by any of the following problems? 1. Little interest or pleasure in doing things: nearly every day 2. Feeling down, depressed, or hopeless: nearly every day 3. Trouble falling or staying asleep, or sleeping too much: several days 4. Feeling tired or having little energy: nearly every day 5. Poor appetite or overeating: not at all 6. Feeling bad about yourself - or that you are a failure or have let yourself or your family down: not at all 7. Trouble concentrating on things, such as reading the newspaper or watching television: nearly every day 8. Moving or speaking so slowly that other people could have noticed. Or the opposite - being so fidgety or restless that you have been moving around a lot more than usual: several days 9. Thoughts that you would be better off or of hurting yourself in some way: not at all Total score: 14 Depression Screening Interpretation: Positive Depression Screening Done: Yes Source: Developed by Drs. Gunnar La, Haley Moran, Yimi Patton and colleagues, with an educational markie from [employer]. Thrive Questionnaire Date Thrive assessed: 11/28/23 Are you currently unemployed and looking for a job?: No SWETHA-7 AMB Questionnaire SWETHA-7 Date SWETHA - 7 assessed: 06/15/24 Feeling nervous, anxious, or on edge: 3 = Nearly every day Not being able to stop or control worryin = Nearly every day Worrying too much about different things: 3 = Nearly every day Trouble relaxin = Nearly every day Being so restless that it is hard to sit still: 3 = Nearly every day Becoming easily annoyed or irritable: 3 = Nearly every day Feeling afraid as if something awful might happen: 3 = Nearly every day Total SWETHA-7 score (0-4 normal; 5-9 mild; 10-14 moderate; 15-21 severe): 21 Source: Developed by Drs. Gunnar La, Haley Moran, Yimi Patton and colleagues, with an educational markie from [employer]. Physical exam (Primary Care) Vital Signs: Last Vital Signs Pulse 73 06/15/24 08:28 BP 120/78 06/15/24 08:28 Pulse Ox 98 06/15/24 08:28 Oxygen Delivery Method Room Air 06/15/24 08:28 BMI result Body Mass Index 31.3 Tobacco/Smoking Status: Tobacco use Status Tobacco use date assessed 06/15/24 06/15/24 08:34 Patient Tobacco Use Status Never used Tobacco 06/15/24 08:34 Tobacco use type 06/06/24 10:56 e-Cigarette/Vaping Use Never Used 06/15/24 08:34 PHQ-9: PHQ-9 Score PHQ-9: Total score 14 06/15/24 08:34 Depression Screening Interpretation: Positive Thrive Assessment: Date of Thrive Assessment Date Thrive assessed 11/28/23 06/15/24 08:34 Const General: alert; No acute distress Eyes Conjunctivae: conjunctivae normal Resp Auscultation: clear to auscultation bilaterally Cardio Rate: regular rate Rhythm: regular rhythm GI Inspection: Yes normal to inspection Extrem General: Yes normal to inspection and No edema Assessment and Plan Assessment & Plan (1) Obesity (BMI 30-39.9): Code(s): E66.9 - Obesity, unspecified Plan: Continue with diet and exercise (2) Hypercholesterolemia: Code(s): E78.00 - Pure hypercholesterolemia, unspecified Plan: Avoid fried foods, chicken skin, eggs, butter margarine, pastries and meat. Be it pork or beef they have a lot of cholesterol LDL goal of less than 130 and triglyceride of less than 150. (3) Hypothyroidism: Comment: hyperthyroidism status post iodine ablation Code(s): E03.9 - Hypothyroidism, unspecified Qualifiers: Hypothyroidism type: acquired Qualified Code(s): E03.9 - Hypothyroidism, unspecified Plan: Continue it Thyroid medication (4) Generalized anxiety disorder: Comment: Declined counseling Code(s): F41.1 - Generalized anxiety disorder Plan: Has been given hydroxyzine and has called on the employee assistance program and awaiting for their response. (5) Left knee pain: Code(s): M25.562 - Pain in left knee Plan: X-ray done revealed negative results. looking more like anserine bursitis- will be having PT (6) Situational depression: Code(s): F43.21 - Adjustment disorder with depressed mood Plan: EAP work pending and on hydroxyzine. will hold off work for 1 month Medications: Refilled hydroxyzine HCl 25 mg PO TID PRN 60 tabs 0RF anxiety F41.1 - Generalized anxiety disorder Coding Level of Care Code Est Pt Level 4 (91121) Est Pt Prev Care 12-17y(12594) Diagnoses Obesity (BMI 30-39.9) E66.9 Hypercholesterolemia E78.00 Acquired hypothyroidism E03.9 Hypothyroidism type: acquired Generalized anxiety disorder F41.1 Left knee pain M25.562 Situational depression F43.21
[2024-06-15 08:28] VITALS: BP 120/78; PULSE 73; O2SAT 98; BMI 31.3
== END 2024-06-15 08:57 | disposition home or self-care (01) ==
PROVIDERS: PCP Internal Medicine; Visit Provider Internal Medicine
DX: E78.00 Pure hypercholesterolemia, unspecified (principal); F41.1 Generalized anxiety disorder; E66.9 Obesity, unspecified; Z68.31 Body mass index [BMI] 31.0-31.9, adult; E03.9 Hypothyroidism, unspecified; M25.562 Pain in left knee; F43.21 Adjustment disorder with depressed mood

== ENCOUNTER → 2024-06-15 08:17 | Outpatient (BNVA) | payer OTHER, SELFPAY | PROVIDERS: PCP Internal Medicine; Visit Provider Internal Medicine | DX: E66.9 Obesity, unspecified (principal); Z68.31 Body mass index [BMI] 31.0-31.9, adult; E78.00 Pure hypercholesterolemia, unspecified; E03.9 Hypothyroidism, unspecified; F41.1 Generalized anxiety disorder; M25.562 Pain in left knee; F43.21 Adjustment disorder with depressed mood; Z79.899 Other long term (current) drug therapy | CPT/HCPCS: 96127 ==

== ENCOUNTER 2024-07-02 12:53 | Outpatient (REF) | payer OTHER, SELFPAY ==
[2024-07-03 05:23] LABS: Bacterial Vaginosis PCR NEGATIVE (Negative); Candida Group PCR NOT DETECTED (Not Detect); Candida glab krusei PCR NOT DETECTED (Not Detect); Trichomonas vaginalis PCR NOT DETECTED (Not Detect)
[2024-07-03 05:53] LABS: CT PCR NOT DETECTED (Not Detect.); NG PCR NOT DETECTED (Not Detect.)
[2024-07-07 07:23] LABS: HPV 16 RNA NOT DETECTED (NOT DETECTED); HPV mRNA E6/E7 Detected (Not Detected)
== END 2024-07-02 12:54 | disposition home or self-care (01) ==
LOC: HO.LAB 12:53
PROVIDERS: PCP Internal Medicine; Visit Provider Advanced Practice Midwife
DX: N89.8 Other specified noninflammatory disorders of vagina (principal); Z20.2 Contact with and (suspected) exposure to infections with a predominantly sexual mode of transmission
CPT/HCPCS: 0352U; 36415; 87491; 87591; 87624; 87625; 88175

== ENCOUNTER 2024-07-02 12:53 | Outpatient (AMB) | payer OTHER, SELFPAY ==
[2024-07-02 13:14] VITALS: BP 110/62; BMI 31.2
--- NOTE | 2024-07-02 13:14 | A.OFFVIS_ITS ---
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 She would like full testing for STIs she broke up with somebody she has a history of endometrial ablation does not get periods the last month she did get a light period for about 3 days. She thinks it was about 2 weeks ago.. She has a history tubal ligation and 3 previous C-sections. 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 She would like to lose about 30 lb but it is challenging. She does not have any symptoms that are worrisome in she did have an abnormal Pap smear in the past. [facility] Medical History Cervical cancer screening Breast cancer screening Well woman exam with routine gynecological exam Elevated blood sugar Skin tag RLQ abdominal pain Deep dyspareunia Chronic pain syndrome Chronic pelvic pain in female Gram-negative bacteremia Elevated LFTs Thrombocytopenia Abnormal CBC Pelvic pain Umbilical hernia Elevated LFTs COVID-19 virus infection Screen for sexually transmitted diseases HPV test positive Vitamin D deficiency Hypercholesterolemia Obesity (BMI 30-39.9) Hypothyroidism Anemia Surgical History History of umbilical hernia repair History of History of endometrial ablation Tubal ligation status Family History Father Diabetes HTN (hypertension) High cholesterol Myocardial infarct Mother Lymphoma Maternal Aunt Colon cancer Social History Household Members: Spouse, Family and Children Housing: House Do you presently have visiting nurse or other home services: No Alcohol intake: never Comment: once Q 3 months 1 drinks Patient Tobacco Use Status: Never used Tobacco e-Cigarette/Vaping Use: Never Used Second Hand Smoke Exposure: No service: No Current occupational status: employed Cognitive needs: No Hearing needs: No Vision needs: Yes (glasses) Female Reproductive History Menstrual Age of Menarche: 11 Duration of menses: 3-5 days Date of last menstrual period: 06/14/24 control method: permanent sterilization Total pregnancies: 4 Full term: 3 Date of last pap smear: 06/29/23 (negative) History of abnormal pap smear: Yes (2018 abn) Date of Mammogram: 06/27/22 (negative) Physical Exam Vital Signs: Last Vital Signs BP 110/62 07/02/24 13:14 BMI result Body Mass Index 31.2 Const General: healthy appearing, comfortable, no acute distress, well developed and alert Nutritional Appearance: average body habitus Orientation/consciousness: patient oriented x3 Limitations: no limitations HEENT Head: Yes normocephalic Neck Neck: Yes normal visual inspection Chest Chest palpation & inspection: normal inspection of the chest Breast/axilla inspection: normal inspection of the breasts and normal inspection of the axillae Breast/axilla palpation: normal palpation of the breasts and normal palpation of the axillae Resp Effort & Inspection: normal respiratory effort GI Inspection: Yes normal to inspection, No Abdominal wall edema and No distended Palpation (GI): Soft to palpation and nontender Other: External exam within normal limits vagina and moist cervix nulliparous pink clear smooth abundant fertile type mucus tinged with brown cervix long close thick mobile nontender uterus small anteverted mobile nontender good tone with Kegel General: Yes bladder normal to palpation External Female Exam: normal external appearance and normal appearance of the urethra Speculum Exam - Vagina: normal appearance of the vagina, normal palpation and normal vaginal discharge Speculum Exam - Cervix: normal appearance of the cervix, normal palpation and nontender Bimanual exam- vagina & uterus: normal bimanual exam, normal palpation, uterine size normal, bladder normal to palpation, consistency normal, normal palpation, uterine mobility normal, uterine shape normal, No Cervical tenderness present, non-tender and no cervical motion tenderness Bimanual Exam- Adnexa, other: normal adnexae, no masses, normal and No adnexal tenderness Neuro General: patient oriented x3 Results Reviewed Results Reviewed: Name: Malia Randhawa I Age/Sex: 43/F Attending: Anuja Mills CNM : 1980 Submitted by: Anuja Mills CNM Copies to: Tom Gage MD MR #: [id number] Status: DEP REF Collected: 06/29/23 Location: [facility] Received: 06/30/23 Interpretation Satisfactory for evaluation. Negative for intraepithelial lesion or malignancy. HPV mRNA E6/E7: NOT DETECTED This assay detects E6/E7 viral messenger RNA (mRNA) from 14 high-risk HPV types (16, 18, 31, 33, 35, 39, 45, 51, 52, 56, 58, 59, 66, 68) HPV testing performed by [facility], [place], [place]. See reference laboratory pion of the EMR for entire report. Clinical Information LMP: 2018 Previous PAP test: 08/17/2019, abnormal Material Received ThinPrep-Cervical Copies To Anuja Mills CNM [address] [place] [address] [address] [place] [address] Tom Gage MD [address] [place] [address] [address] [place] [address] Electronically Signed By: MILVIA Victoria (ASCP) 07/06/23 0900 The Pap Test is a screening procedure with the inherent possibility of both false negative and false positive results. Results should be interpreted in the context of historic and current clinical findings. Reliability of the Pap Test is enhanced by performing the test on a regular repetitive basis. Patient: Malia Randhawa I Age/Sex: 43/F MR#: [id number] Page 1 of 1 Assessment & Plan Assessment & Plan (1) Tubal ligation status: Comment: October 2013 Code(s): Z98.51 - Tubal ligation status Category: Surgical (2) History of endometrial ablation: Comment: August 2020 Code(s): Z98.890 - Other specified postprocedural states Category: Surgical (3) Cervical cancer screening: Comment: History of HPV positive 2014 and patient believes also in 2004 Paps otherwise negative per memory. Last Pap negative with negative HPV 2018; Pap done 06/29/2023= negative with negative HPV . Code(s): Z12.4 - Encounter for screening for malignant neoplasm of cervix Category: Medical (4) Well woman exam with routine gynecological exam: Code(s): Z01.419 - Encounter for gynecological examination (general) (routine) without ab normal findings Category: Medical (5) Encounter for screening examination for sexually transmitted disease: Code(s): Z11.3 - Encounter for screening for infections with a predominantly sexual mode of transmission Category: Medical Plan -----Discussed in this visit the following: healthy balanced diet, regular and consistent exercise, getting recommended health screens, doing the best she can for her particular health concerns, kegel exercises, pap smear screening and followup recommendations, mammography screening and SBE, normal changes in cycles in her life stage--- . 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 normal cyclic changes. She is up-to-date on her mammograms Orders: Orders Hepatitis C Antibody Today Z01.419 - Encounter for gynecological examination (general) (routine) without abnormal findings, Z11.3 - Encounter for screening for infections with a predominantly sexual mode of transmission, Z12.4 - Encounter for screening for malignant neoplasm of cervix, Z98.51 - Tubal ligation status, Z98.890 - Other specified postprocedural states Hepatitis B Surface Antigen Today Z01.419 - Encounter for gynecological examination (general) (routine) without abnormal findings, Z11.3 - Encounter for screening for infections with a predominantly sexual mode of transmission, Z12.4 - Encounter for screening for malignant neoplasm of cervix, Z98.51 - Tubal ligation status, Z98.890 - Other specified postprocedural states Syphilis Screen Today Z01.419 - Encounter for gynecological examination (general) (routine) without abnormal findings, Z11.3 - Encounter for screening for infections with a predominantly sexual mode of transmission, Z12.4 - Encounter for screening for malignant neoplasm of cervix, Z98.51 - Tubal ligation status, Z98.890 - Other specified postprocedural states HIV Ab/Ag Today Z01.419 - Encounter for gynecological examination (general) (routine) without abnormal findings, Z11.3 - Encounter for screening for infections with a predominantly sexual mode of transmission, Z12.4 - Encounter for screening for malignant neoplasm of cervix, Z98.51 - Tubal ligation status, Z98.890 - Other specified postprocedural states Coding Level of Care Code Est Pt Prev Care 40-64y(04577) Diagnoses Tubal ligation status Z98.51 History of endometrial ablation Z98.890 Cervical cancer screening Z12.4 Well woman exam with routine gynecological exam Z01.419 Encounter for screening examination for sexually transmitted disease Z11.3
== END 2024-07-02 14:08 | disposition home or self-care (01) ==
PROVIDERS: PCP Internal Medicine; Visit Provider Advanced Practice Midwife
DX: Z01.419 Encounter for gynecological examination (general) (routine) without abnormal findings (principal)
CPT/HCPCS: 99396

== ENCOUNTER 2024-07-03 11:04 | Outpatient (REF) | payer OTHER, SELFPAY ==
[2024-07-03 13:10] LABS: HBsAGNum1 0.56 S/CO (0.00-0.99); HIV AB/AG Nonreactive (Nonreactive); HIV Num 1 0.05 S/CO (0.00-0.99); Hepatitis B Surface Antigen Negative (Negative); ~HepC Num1 0.21 S/CO (0.00-0.79); ~Hepatitis C Antibody Nonreactive (Nonreactive)
[2024-07-03 13:12] LABS: Syphilis Screen Nonreactive (Nonreactive)
[2024-07-04 04:27] LABS: Syphilis Screen Nonreactive (Nonreactive)
[2024-07-04 04:54] LABS: HBS Num1 114.09 mIU/mL (0-7.99); HBsAGNum1 0.44 S/CO (0.00-0.99); HIV AB/AG Nonreactive (Nonreactive); HIV Num 1 0.07 S/CO (0.00-0.99); Hepatitis B Core Antibody Nonreactive (Nonreactive); Hepatitis B Surface Antigen Negative (Negative); ~HepC Num1 0.22 S/CO (0.00-0.79); ~Hepatitis B Surface Antibody REACTIVE (Nonreactive); ~Hepatitis C Antibody Nonreactive (Nonreactive)
== END 2024-07-03 11:05 | disposition home or self-care (01) ==
LOC: HO.LAB 11:04
PROVIDERS: Nurse Practitioner Family; PCP Internal Medicine; Visit Provider Advanced Practice Midwife
DX: Z01.419 Encounter for gynecological examination (general) (routine) without abnormal findings (principal); Z11.3 Encounter for screening for infections with a predominantly sexual mode of transmission; Z12.4 Encounter for screening for malignant neoplasm of cervix; Z98.890 Other specified postprocedural states; Z98.51 Tubal ligation status; N89.8 Other specified noninflammatory disorders of vagina
CPT/HCPCS: 36415; 86704; 86706; 86780; 86803; 87340; 87389

== ENCOUNTER 2024-07-17 15:21 | Outpatient (AMB) | payer OTHER, SELFPAY ==
[2024-07-17 15:23] VITALS: BP 102/70; PULSE 83; O2SAT 98; BMI 31.2
--- NOTE | 2024-07-17 15:23 | A.OFFPC_ITS ---
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 Patient comes in for wanting to return work.. stopped work 06/15/2024 and cleared to go back to work. 07/15/2024 provided. Patient had questions regarding HPV and discussed about what needs to be done. [facility] Medical History (Updated 07/17/24 @ 12:05 by Anuja Mills CNM) Well woman exam with routine gynecological exam Cervical cancer screening Breast cancer screening Elevated blood sugar Skin tag RLQ abdominal pain Deep dyspareunia Chronic pain syndrome Chronic pelvic pain in female Gram-negative bacteremia Elevated LFTs Thrombocytopenia Abnormal CBC Pelvic pain Umbilical hernia Elevated LFTs COVID-19 virus infection Screen for sexually transmitted diseases HPV test positive Vitamin D deficiency Hypercholesterolemia Obesity (BMI 30-39.9) Hypothyroidism Anemia Surgical History (Updated 07/02/24 @ 13:45 by Anuja Mills CNM) History of umbilical hernia repair History of History of endometrial ablation Tubal ligation status Family History Father Diabetes HTN (hypertension) High cholesterol Myocardial infarct Mother Lymphoma Maternal Aunt Colon cancer Social History Household Members: Spouse, Family and Children Housing: House Do you presently have visiting nurse or other home services: No Alcohol intake: never Comment: once Q 3 months 1 drinks Patient Tobacco Use Status: Never used Tobacco e-Cigarette/Vaping Use: Never Used Second Hand Smoke Exposure: No service: No Current occupational status: employed Cognitive needs: No Hearing needs: No Vision needs: Yes (glasses) Female Reproductive History Menstrual Age of Menarche: 11 Questionnaire Thrive Questionnaire Date Thrive assessed: 11/28/23 Are you currently unemployed and looking for a job?: No AUDIT C Alcohol Use Questionnaire (AUDIT-C) 1. How often do you have a drink containing alcohol?: Monthly or less 2. How many drinks containing alcohol do you have on a typical day when you are drinking?: 1 or 2 3. How often do you have six or more drinks on one occasion?: Never Total Score: 1 SWETHA-7 AMB Questionnaire SWETHA-7 Date SWETHA - 7 assessed: 06/15/24 Source: Developed by Drs. Gunnar La, Haley Moran, Yimi Patton and colleagues, with an educational markie from [employer]. Physical exam (Primary Care) Vital Signs: Last Vital Signs Pulse 83 07/17/24 15:23 BP 102/70 07/17/24 15:23 Pulse Ox 98 07/17/24 15:23 Oxygen Delivery Method Room Air 07/17/24 15:23 BMI result Body Mass Index 31.2 Tobacco/Smoking Status: Tobacco use Status Tobacco use date assessed 06/15/24 07/17/24 15:24 Patient Tobacco Use Status Never used Tobacco 07/17/24 15:24 Tobacco use type 06/06/24 10:56 e-Cigarette/Vaping Use Never Used 07/17/24 15:24 Thrive Assessment: Date of Thrive Assessment Date Thrive assessed 11/28/23 07/17/24 15:24 Const General: alert; No acute distress Eyes Conjunctivae: conjunctivae normal Resp Auscultation: clear to auscultation bilaterally Cardio Rate: regular rate Rhythm: regular rhythm GI Inspection: Yes normal to inspection Extrem General: Yes normal to inspection and No edema Coding Level of Care Code Est Pt Level 3 (98916) Diagnoses Generalized anxiety disorder F41.1 Situational depression F43.21 Assessment & Plan Assessment & Plan (1) Generalized anxiety disorder: Comment: Declined counseling Code(s): F41.1 - Generalized anxiety disorder Category: Medical Plan: Continue with hydroxyzine. (2) Situational depression: Code(s): F43.21 - Adjustment disorder with depressed mood Category: Medical Plan: Patient has been doing better and letter to go back to work provided.
== END 2024-07-17 16:39 | disposition home or self-care (01) ==
PROVIDERS: PCP Internal Medicine; Visit Provider Internal Medicine
DX: F41.1 Generalized anxiety disorder (principal); F43.21 Adjustment disorder with depressed mood

== ENCOUNTER → 2024-07-17 15:21 | Outpatient (BNVA) | payer OTHER, SELFPAY | PROVIDERS: PCP Internal Medicine; Visit Provider Internal Medicine ==

== ENCOUNTER 2024-08-06 13:11 | Outpatient (REF) | payer OTHER, SELFPAY ==
--- NOTE | ~2024-08-06 | MM_ITS ---
EXAMINATION: MM SCREENING DIGITAL BREAST TOMOSYNTHESIS, BILATERAL CLINICAL INFORMATION: Screening. Asymptomatic. COMPARISON: Mammography: Comparison is made with available priors TECHNIQUE: Digital breast mammography with tomosynthesis is performed in both the craniocaudal and mediolateral oblique views along with computer-aided detection (CAD). FINDINGS: There are scattered areas of fibroglandular density (ACR BI-RADS breast composition Category b). There are no significant masses, abnormal calcifications, or other abnormalities. MM/MM tomosynthesis screening BI IMPRESSION: No mammographic evidence of malignancy. ASSESSMENT: BI-RADS BI-RADS 1 - Negative RECOMMENDATION: Routine annual mammography screening. 1 year F/U This examination should not preclude the clinical evaluation of a suspicious palpable abnormality. This patient's information was entered into a reminder system with a target due date for their next mammogram. Electronically signed by: Latonia Somers DO 08/15/2024 12:07 PM ROLAN
== END 2024-08-06 13:12 | disposition home or self-care (01) ==
LOC: HO.MAMMO 13:11
PROVIDERS: PCP Internal Medicine; Visit Provider Internal Medicine
DX: Z12.31 Encounter for screening mammogram for malignant neoplasm of breast (principal)
CPT/HCPCS: 77063; 77067

== ENCOUNTER → 2024-08-06 13:15 | Outpatient (BNV) | payer OTHER, SELFPAY | PROVIDERS: PCP Internal Medicine; Visit Provider Internal Medicine | DX: Z12.31 Encounter for screening mammogram for malignant neoplasm of breast (principal) | CPT/HCPCS: 77063; 77067 ==

== ENCOUNTER 2024-08-09 09:39 | Outpatient (RCR) | payer OTHER, SELFPAY ==
--- NOTE | 2024-08-31 10:57 | MHC.PT.DC ---
[facility] [place] Office [place] Office [place] Office [address] [phone] F: [phone] F: [phone] F: [phone] F: [phone] Physical Therapy Discharge Report Diagnosis: LEFT KNEE PAIN (KP) Date of Surgery: NA Date of Evaluation: 06/20/24 Date of Discharge: 08/31/24 Treatments to Date: 10 Cancellations to Date: 2 No Shows to Date: 0 Discharge Status: Improved Function Independent with HEP Discharge Summary: JULISSA HAS PROGRESSED WELL IN PT, REPORTS INDEPENDENT WITH CURRENT HEP. RESIDUAL SYMPTOMS REMAIN BUT SHE IS ABLE TO SELF MANAGE. MAY BENEFIT FROM MD F/U AND POSSIBLE IMAGING IF SYMPTOMS REMAIN Electronically signed by: NAINA DEL TORO PT DPT Please sign and return to therapist. Thank you for your referral.
== END 2024-08-31 10:57 | disposition home or self-care (01) ==
LOC: HO.PT 09:39
PROVIDERS: PCP Internal Medicine
DX: M25.562 Pain in left knee (principal)
CPT/HCPCS: 97014; 97110; 97140; 97161; 97530; 97535

== ENCOUNTER 2024-08-21 08:37 | Outpatient (AMB) | payer OTHER, SELFPAY ==
--- NOTE | 2024-08-21 08:40 | A.OFFVIS_ITS ---
Vital Signs 08/21/24 08:41 Height 5 ft Weight 167 lb 1.766 oz BMI 32.6 BP 120/80 Blood Pressure Location Rt brachial Position Sitting Pulse 50 Pulse Source Pulse Oximeter Pulse Oximetry (%) 98 Oxygen Delivery Method Room Air Intake Visit Reasons: 3 month follow up R/S from Apr Intake Note: PRESCRIPTIONS LAST GENERATED polyethylene glycol 3350 17 gram/dose oral powder?(Miralax)?17 grams PO DAILY 510 grams 2RF Juanis Leroy D 02/08/24 15:30 (Transmitted) Pt still taking PRN w/o difficulty Relevant Flags or Indicators ? Requires Territory Business Manager? Torres Malia presents in office today for a scheduled ~ 6 mos FUV. CC; No recent labs, diagnostics Relevant GI Sx as reported per pt? None ? Hx of any recent surgeries? None Territory Business Manager Required: No Allergies No Known Allergies Allergy (Verified 08/21/24 08:43) HPI HPI 3 month follow up R/S from Apr: Details: LAST VISIT: Colitis RLQ abdominal pain LLQ abdominal pain Diarrhea Chronic idiopathic constipation Plan Will rule out IBD, malabsorption. Patient will be sent for enterography to evaluate the entire small intestine. Colitis/ileitis seen in terminal ileum and at ileocecal valve. If patient has Crohn's she will need to be placed on medication and go for colonoscopy at some point. Patient was encouraged to take MiraLax daily. Increase fluid intake and activity to promote better bowel motility. Patient will return in 4 months, sooner on as needed basis. She is agreeable to this plan and verbalizes understanding of instructions. She was given the opportunity to ask questions and all questions answered. ? Thank you for allowing me to participate in her care Orders Orders Vitamin B12 and Folate Today R19.7 Calprotectin, Fecal Today R15.9 C Reactive Protein Today K58.9 Vitamin D 25-OH (D2 and D3) Today E55.9 CT enterography Today K52.9, R10.9 Medications New polyethylene glycol 3350 (Miralax) 17 grams PO DAILY 510 grams 2RF TODAY'S VISIT: Patient is here today for follow-up and to discuss lab and CT enterography results. Patient reports that she has been feeling well. Denies any abdominal pain or discomfort denies any melena, hematochezia. Patient states that she is moving her bowels better now, however patient admits that continues to feel bloated. Normal vitamin levels, however patient for sometimes in did not had CRP drawn, and stool calprotectin was not collected. Patient was encouraged to get it done today. Patient reports family history of CRC. Maternal aunt was diagnosed with colon cancer promote no known family history of IBD. Patient denies any issues with anesthesia in the past. No history of sleep apnea. Not on any anticoagulation medication. [facility] Medical History Well woman exam with routine gynecological exam Cervical cancer screening Breast cancer screening Elevated blood sugar Skin tag RLQ abdominal pain Deep dyspareunia Chronic pain syndrome Chronic pelvic pain in female Gram-negative bacteremia Elevated LFTs Thrombocytopenia Abnormal CBC Pelvic pain Umbilical hernia Elevated LFTs COVID-19 virus infection Screen for sexually transmitted diseases HPV test positive Vitamin D deficiency Hypercholesterolemia Obesity (BMI 30-39.9) Hypothyroidism Anemia Surgical History History of umbilical hernia repair History of History of endometrial ablation Tubal ligation status Family History Father Diabetes HTN (hypertension) High cholesterol Myocardial infarct Mother Lymphoma Maternal Aunt Colon cancer Social History Household Members: Spouse, Family and Children Housing: House Do you presently have visiting nurse or other home services: No Alcohol intake: never Comment: once Q 3 months 1 drinks Patient Tobacco Use Status: Never used Tobacco e-Cigarette/Vaping Use: Never Used Second Hand Smoke Exposure: No service: No Current occupational status: employed Cognitive needs: No Hearing needs: No Vision needs: Yes (glasses) Female Reproductive History Menstrual Age of Menarche: 11 Review of Systems Const Denies weight gain and Denies weight loss ENT Reports no additional complaints, Denies dysphagia and Denies odynophagia Card Reports no additional complaints Resp Reports no additional complaints GI Denies abdominal pain, Denies belching, Denies melena, Reports bloating, Denies change in bowel habits, Denies dysphagia, Denies excessive flatus, Denies dyspepsia, Denies heartburn, Denies diarrhea, Denies loose stools, Denies nausea, Denies odynophagia and Denies vomiting Reports no additional complaints Musc Reports no additional complaints Neuro Reports no additional complaints Psych Reports no additional complaints Endo Reports no additional complaints Physical Exam Vital Signs: Last Vital Signs Pulse 50 08/21/24 08:41 BP 120/80 08/21/24 08:41 Pulse Ox 98 08/21/24 08:41 Oxygen Delivery Method Room Air 08/21/24 08:41 BMI result Body Mass Index 32.6 Const General: healthy appearing and no acute distress Nutritional Appearance: obese Orientation/consciousness: patient oriented x3 Resp Effort & Inspection: normal respiratory effort, able to speak in complete sentences, no tracheal deviation and symmetric chest movement Auscultation: clear to auscultation bilaterally Cardio Rate: regular rate GI Inspection: Yes normal to inspection, No distended and Yes obesity Palpation (GI): Soft to palpation, not firm, nontender and No hepatosplenomegaly present Auscultation: normal bowel sounds General: Yes no CVA tenderness Back/Spine/Pelvis Back: no CVA tenderness Skin General skin exam: elasticity normal, turgor normal and dry skin Neuro General: patient oriented x3 Psych Appearance: grossly normal Mental Status: mental status grossly normal Results Reviewed Results Reviewed: Laboratory Tests 01/05/24 04/12/24 09:32 12:24 AST 30 ALT 31 Alkaline Phosphatase 81 Vitamin B12 453 25-OH Vitamin D Total 32.[address] ENTEROGRAPHY FINDINGS: GASTROINTESTINAL FINDINGS: Stomach: Well-distended and normal in appearance. Small intestine: Satisfactorily distended and normal in appearance. Large intestine: Moderate colonic stool burden with fluid contents. No pericolonic inflammatory changes. No perirectal changes demonstrated. The appendix is normal. Additional findings: No abnormal enhancement of the vasa recta or significant mesenteric or retroperitoneal lymphadenopathy is seen. No abdominal abscess or fistulous tract demonstrated. ABDOMINAL AND PELVIC CT FINDINGS: Liver, gallbladder, biliary tract: The liver is normal in size shape and attenuation. Focal hypoattenuation along the falciform ligament may be related to focal fat infiltration. Otherwise no focal hepatic lesion. There is no biliary ductal dilation. The gallbladder is partially contracted limiting evaluation. There is no evidence of radiopaque gallstones or pericholecystic inflammatory changes. Pancreas: Unremarkable Spleen: Unremarkable Adrenal glands and kidneys: Bilateral adrenal glands are unremarkable. Symmetric nephrograms. No renal calculus or hydronephrosis. Ureters and bladder: No hydroureter. Urinary bladder is well-distended and appears unremarkable. Pelvis: Approximately 2.7 cm hypoattenuating lesion in the left aspect of the lower uterine segment/cervix likely compatible with an intramural fibroid 1.9 cm simple left ovarian cyst, for which no dedicated orbital imaging is required. Lymphovascular structures: The abdominal aorta is normal in caliber. No [id number] lymphadenopathy. Bones: No acute or suspicious osseous abnormality. Lung bases: Unremarkable CT/CT enterography IMPRESSION: No acute abdominopelvic abnormality. No definite findings to suggest infectious or inflammatory enteritis or colitis. Liquid stool throughout the colon can be seen with diarrhoeal disease. Assessment & Plan Assessment & Plan (1) Colitis: Code(s): K52.9 - Noninfective gastroenteritis and colitis, unspecified Category: Medical (2) RLQ abdominal pain: Code(s): R10.31 - Right lower quadrant pain Category: Medical (3) Diarrhea: Code(s): R19.7 - Diarrhea, unspecified Qualifiers: Diarrhea type: functional diarrhea Qualified Code(s): K59.1 - Functional diarrhea (4) Chronic idiopathic constipation: Code(s): K59.04 - Chronic idiopathic constipation Plan Patient will get CRC done and stool calprotectin. CT enterography did not show any inflammatory changes. Normal vitamin levels. Discussed with patient FODMAP diet. Patient has a list at home of food that she should avoid. Due to family history of CRC and change in bowel pattern patient will be sent for colonoscopy. Message sent to surgical schedulers to book one. Patient denies any issues with anesthesia in the past. No history of sleep apnea. Not on any anticoagulation medication. No history of infectious diseases in the past or present. Denies melena, hematochezia, unintentional weight loss or ribbon like stools. Patient will be seen after the procedure, sooner on as needed basis. She is agreeable plan and verbalizes understanding of instructions. She was gi sherri the opportunity to ask questions and all questions answered. Thank you for allowing me participate in her care Coding Level of Care Code Est Pt Level 4 (43457) Diagnoses Colitis K52.9 RLQ abdominal pain R10.31 Functional diarrhea K59.1 Diarrhea type: functional diarrhea Chronic idiopathic constipation K59.04 Time Spent (min) 35 Comment 20 minutes spent with patient and additional 15 minutes spent reviewing her records
[2024-08-21 08:41] VITALS: BP 120/80; PULSE 50; O2SAT 98; BMI 32.6
== END 2024-08-21 09:27 | disposition home or self-care (01) ==
PROVIDERS: PCP Internal Medicine; Visit Provider Nurse Practitioner Family
DX: K52.9 Noninfective gastroenteritis and colitis, unspecified (principal); K59.04 Chronic idiopathic constipation
CPT/HCPCS: 99214

== ENCOUNTER 2024-12-12 08:43 | Day surgery (SDC) | payer OTHER, SELFPAY ==
--- OUTSIDE RECORDS SUMMARY | 2024-11-14 09:25 | XMS_ITS | Clinical Summary ---
Author Organization [facility] Address [address] [place] [address] Care Team Providers Care Marine Service Station Attendant Name Role Phone Reyna Bernard DMD Primary Care Provider [phone] Source Comments PLEASE NOTE, if this patient is a minor, it may be UNLAWFUL to discuss sensitive information that is contained in these records (such as FAMILY PLANNING, MENTAL HEALTH or SUBSTANCE ABUSE) with the minor patient's parent or other person without the patient's specific authorization.[facility] Allergies No known active allergies Medications iron,carb/vit C/vit B12/folic (IRON 100 PLUS ORAL) Take by mouth Active Active Problems No known active problems Encounters Date Type Department Care Team Description 10/19/2024 10:40 AM EST Office Visit [facility] [address] [place] [address] Clover Miranda DDS Fractured dental temple with loss of material (Primary Dx) from Last 3 Months Social History Tobacco Use Types Packs/Day Years Used Date Smoking Tobacco: Never Smokeless Tobacco: Never Tobacco Cessation:Counseling Given: Not Answered Social Connections Answer Date Recorded Connectedness 0 06/14/2024 Financial Resource Strain Answer Date R ecorded Financial Resource Strain 0 2021 Stress Answer Date Recorded Stress 0 03/02/2022 Physical Activity Answer Date Recorded Physical Activity 0 03/02/2022 Food Insecurity Answer Date Recorded Food 0 06/21/2024 Transportation Needs Answer Date Record ed Transportation 0 03/02/2022 Housing Stability Answer Date Recorded Housing 0 03/02/2022 Safety and Environment Answer Date Srikanth rded Safety 0 03/02/2022 Utilities Answer Date Recorded Utilities 0 03/02/2022 Employment Answer Date Recorded Stress 0 06/14/2024 Comments Unknown Sex and Gender Information Value Date Recorded Sex Assigned at Not on file Legal Sex Female 7:35 AM PDT Gender Identity Not on file Sexual Orientation Not on file Last Filed Vital Signs Vital Sign Reading Time Taken Comments Blood Pressure 130/90 10/19/2024 11:02 AM EST Pulse 72 10/19/2024 11:02 AM EST Temperature - - Respiratory Rate - - Oxygen Saturation - - Inhaled Oxygen Concentration - - Weight - - Height - - Body Mass Index - - Plan of Treatment Upcoming Encounters Date Type Department Care Team (Late st Contact Info) Description 12/05/2024 9:40 AM EDT Office Visit [facility] [address] [place] [phone] Clover Miranda, DDS [address] [place] [address] Health Maintenance Due Date Last Done Comments Dental Perio Charting 1982 Diabetes Screening 1982 HPV Screening 1982 Hepatitis C Screening 1982 Lipid Screening 1982 Pap + HPV 1982 Tobacco Screening 1982 HIV Screening 1997 Relationship Safety Screening/Counseling 1997 Imm-DTaP/Tdap/Td (1 - Tdap) 2001 Imm-Hepatitis B (1 of 3 - 19 + 3-dose series) 2001 Cervical Cancer Screening 2003 Pap Smear 2003 Breast Cancer Screening (Mammogram) 2022 Dental BW 01/29/2024 01/26/2023, 07/29/2022 Dental Examination 01/29/2024 01/26/2023, 07/29/2022 Dental Prophy 01/29/2024 01/26/2023, 07/29/2022 [id number] ( season) 2024 Imm-Influenza (#1) 2024 Alcohol and Drug Screen 09/26/2024 Depression Annual Screen 09/26/2024 Hypertension Screening (#1) 10/19/2025 Dental FMX/Pano 10/22/2027 10/20/2022 Cervical Ablation/Cold-Knife Conization Discontinued Cervical Cryotherapy Discontinued Colposcopy Discontinued Endometrial Biopsy Discontinued Excision/Leep Discontinued HPV Genotyping Discontinued Vaginal Pap Discontinued Vulvoscopy Discontinued Procedures Procedure Name Priority Date/Time Associated Diagnosis Comments INTRAORAL - PERIAPICAL EACH ADD RADIOGRAPH IMAGE Routine 10/19/2024 10:40 AM EST Fractured dental temple with loss of material LIMITED ORAL EVALUATION - PROBLEM FOCUSED Routine 10/19/2024 10:40 AM EST Fractured dental temple with loss of material CASE PRESENTATION SUBS DTL & EXTENSIVE TX PLN Routine 10/19/2024 10:40 AM EST Fractured dental temple with loss of material BITEWINGS - FOUR RADIOGRAPHIC IMAGES Routine 01/26/2023 1:00 PM EDT Encounter for dental examination and cleaning without abnormal findings PROPHYLAXIS - ADULT Routine 01/26/2023 1 :00 PM EDT Encounter for dental examination and cleaning without abnormal findings PERIODIC ORAL EVALUATION ESTABLISHED PATIENT Routine 01/26/2023 1:00 PM EDT Encounter for dental examination and cleaning without abnormal findings PANORAMIC RADIOGRAPHIC IMAGE Routine 10/20/2022 2:00 PM EST Dental caries extending into pulp from Last 3 Months or Most Recently Relevant to Health Maintenance Care Teams Marine Service [employer] Attendant Relationship Specialty Start Date End Date Reyna Bernard DMD [address] [place] [address] PCP - General 12/05/20
--- OUTSIDE RECORDS SUMMARY | 2024-11-14 09:25 | XMS_ITS | Encounter Summary ---
Author Organization [facility] Address [address] [place] [address] Care Team Providers Care Lock And Dam Equipment Repairer Name Role Phone Reyna Bernard ERYN Primary Care Provider [phone] Encounter Details Date Type Department Care Team (Late st Contact Info) Description 10/19/2024 10:40 AM EST Office Visit [facility] [address] [place] [phone] Clover Miranda DDS [address] [place] [address] Fractured dental anabaptism with loss of material (Primary Dx) Social History Tobacco Use Types Packs/Day Years Used Date Smoking Tobacco: Never Smokeless Tobacco: Never Social Connections Answer Date Recorded Connectedness 0 [...] on file Sexual Orientation Not on file documented as of this encounter Last Filed Vital Signs Vital Sign Reading Time Taken Comments Blood Pressure 130/90 10/19/2024 11:02 AM EST Pulse 72 10/19/2024 11:02 AM EST Temperature - - Respiratory Rate - - Oxygen Saturation - - Inhaled Oxygen Concentration - - Weight - - Height - - Body Mass Index - - documented in this encounter Progress Notes * Clover Miranda DDS - 10/19/2024 3:19 PM EST Limited Exam Subjective Malia Randhawa, 44 year old female, presents alone for limited exam of LR. Inspector Cold Working: No No chief complaint on file. Description of pain: none Objective RMHx: Yes Vitals: Vitals: 10/19/24 1102 BP: (!) 130/90 Pulse: 72 BP Site: Left Wrist BP Position: Sitting BP Cuff Size: Regular Adult Pain Score: 0 - No pain Endo Status: Endo Testing: Tooth # Palpation Percussion Endo Ice EPT Mobility Probing Assessment Dx: K08.531 Fractured dental anabaptism with loss of material (primary encounter diagnosis) Dx Details (Clinical Decision-Making): Patient came for limited exam, old anabaptism came out, advice to do anabaptism again, although inform patient anabaptism can come out again its better she should get a crown but she said she wants anabaptism first. The if anabaptism fractures again she will go for crown, Plan Informed Consent/PARQ (Procedure, Alternatives, Risks, Questions): Discussed limited exam findings and treatment needs, questions answered. Patient confirms informed consent, verbalizes understandingof limited exam findings and treatment plan. Pt informed today's exam was a limited exam, and comprehensive exam was not done today. Treatment needs may exist in other areas which were not examined today. Advised patient seek comprehensive care and return for evaluation of other areas as soon as possible. Dental procedures in this visit D9450 - CASE PRESENTATION SUBS DTL & EXTENSIVE TX PLN (Completed) Service provider: Clover Miranda DDS Billing provider: Clover Miranda DDS D0140 - LIMITED ORAL EVALUATION - PROBLEM FOCUSED (Completed) Service provider: Clover Miranda DDS Billing provider: Clover Miranda DDS D0230 - INTRAORAL - PERIAPICAL EACH ADD RADIOGRAPH IMAGE (Completed) Service provider: Clover Miranda DDS Billing provider: Clover Miranda DDS Treatment Completed: Referral: No orders of the following type(s) were placed in this encounter: Referral. Rx: No orders of the defined types were placed in this encounter. Behavior: Compliant DA: hansa NV: Treatment - Restorative documented in this encounter Miscellaneous Notes * Patient Instructions - Hansa Oseimatthew Freitas - 10/19/2024 11:13 AM EST If you are not able to keep your appointment please call 24-48 hours before your appointment to cancel or reschedule. documented in this encounter Plan of Treatment Upcoming Encounters Date Type Department Care Team (Late st Contact Info) Description 12/05/2024 9:40 AM EDT Office Visit [facility] [address] [place] [phone] Clover Miranda DDS [address] [place] [address] Scheduled Orders Name Type Priority Associated Diagnoses Order Schedule 31 LO RESIN-BASED COMPOSITE - TWO SURFACES POSTERIOR Dental Procedures Routine 1 Occurrenc es starting 10/19/2024 documented as of this encounter Procedures Procedure Name Priority Date/Time Associated Diagnosis Comments CASE PRESENTATION SUBS DTL & EXTENSIVE TX PLN Routine 10/19/2024 10:40 AM EST Fractured dental anabaptism with loss of material INTRAORAL - PERIAPICAL EACH ADD RADIOGRAPH IMAGE Routine 10/19/2024 10:40 AM EST Fractured dental anabaptism with loss of material LIMITED ORAL EVALUATION - PROBLEM FOCUSED Routine 10/19/2024 10:40 AM EST Fractured dental anabaptism with loss of material documented in this encounter Visit Diagnoses Diagnosis Fractured dental anabaptism with loss of material- Primary Fractured dental restorative material with loss of material documented in this encounter Care Teams Lock And Dam Equipment Repairer Relationship Specialty Start Date End Date Reyna Bernard DMD [address] [place] [address] PCP - General 12/05/20 documented as of this encounter
--- OUTSIDE RECORDS SUMMARY | 2024-11-14 09:25 | XMS_ITS | Clinical Summary ---
Author Organization [facility] Address [address] [place] [address] Care Team Providers Care College Professor Name Role Phone Tom Gage MD Primary Care Provider [phone] Social History Tobacco Use Types Packs/Day Years Used Date Smoking Tobacco: Never Assessed Comments Unknown Sex and Gender Information Value Date Recorded Sex Assigned at Not on file Legal Sex Female 2:32 PM EST Gender Identity Not on file Sexual Orientation Not on file Plan of Treatment Health Maintenance Due Date Last Done Comments Breast Cancer Screening 1982 DTaP,Tdap,and Td Vaccines (1 - Tdap) 2001 Hepatitis B Vaccines (1 of 3 - 19+ 3-dose series) 2001 Cervical Cancer Screening: P ap Smear 2003 COVID-19 Vaccine (2023-2 5 season) 2024 Influenza Vaccine (#1) 2024 HIB Vaccines Aged Out No longer eligi ble based on patient's age to complete this topic HPV Vaccines Aged Out No longer eligi ble based on patient's age to complete this topic Hepatitis A Vaccines Aged Out No long er eligible based on patient's age to complete this topic IPV Vaccines Aged Out No longer eligi ble based on patient's age to complete this topic MMR Vaccines Aged Out No longer eligi ble based on patient's age to complete this topic Meningococcal ACWY Vaccine Aged Out N o longer eligible based on patient's age to complete this topic Meningococcal B Vacine Aged Out No lo nger eligible based on patient's age to complete this topic Pneumococcal Vaccine: Pediat rics (0 to 5 Years) and At-Risk Patients (6 to 64 Years) Aged Out No longer eligible b ased on patient's age to complete this topic RSV Immunization Patients Un armand 20 months Aged Out No longer eligible b ased on patient's age to complete this topic Varicella Vaccines Aged Out No longer eligible based on patient's age to complete this topic Care Teams College Professor Relationship Specialty Start Date End Date Po, MD Tom [address] [place] [address] Dr [address] [facility] [place] [address] PCP - General Internal Medicine 03/19/13
--- OUTSIDE RECORDS SUMMARY | 2024-11-14 09:25 | XMS_ITS | Encounter Summary ---
Author Organization [facility] Address [address] [place] [address] Care Team Providers Care Binding Cutter Synthetic Cloth Name Role Phone Reyna Bernard ERYN Primary Care Provider [phone] Encounter Details Date Type Department Care Team (Late st Contact Info) Description 03/02/2022 Dental Interim Note Formerly [facility] [address] [facility] [address] [place] [phone] Romelia Gaviria [address] [place], [place] [phone] Social History Tobacco Use Types Packs/Day Years Used Date Smoking Tobacco: Never Assessed Social Connections Answer Date Recorded Social Connections and Isolation 0 03/02/2022 Financial Resource Strain Answer Date R ecorded Financial Resource Strain 0 2021 Stress Answer Date Recorded Stress 0 03/02/2022 Physical Activity Answer Date Recorded Physical Activity 0 03/02/2022 Food Insecurity Answer Date Recorded Food 0 03/02/2022 Transportation Needs Answer Date Record ed Transportation 0 03/02/2022 Housing Stability Answer Date Recorded Housing 0 03/02/2022 Safety and Environment Answer Date Srikanth rded Safety 0 03/02/2022 Utilities Answer Date Recorded Utilities 0 03/02/2022 Employment Answer Date Recorded Employment 0 03/02/2022 Comments Unknown Sex and Gender Information Value Date Recorded Sex Assigned at Not on file Legal Sex Female 7:35 AM PDT Gender Identity Not on file Sexual Orientation Not on file documented as of this encounter Plan of Treatment Upcoming Encounters Date Type Department Care Team (Late st Contact Info) Description 12/05/2024 9:40 AM EDT Office Visit [facility] [address] [facility] [address] [place] [phone] Clover Miranda DDS [address] [place], [place] [phone] documented as of this encounter Procedures Procedure Name Priority Date/Time Associated Diagnosis Comments 31 LO COMPOSITE - WISDOM (NON BILLABLE) Routine 03/02/2022 12:00 AM EDT 30 MO COMPOSITE - WISDOM (NON BILLABLE) Routine 03/02/2022 12:00 AM EDT 20 DO COMPOSITE - WISDOM (NON BILLABLE) Routine 03/02/2022 12:00 AM EDT 17 O COMPOSITE - WISDOM (NON BILLABLE) Routine 03/02/2022 12:00 AM EDT 16 O COMPOSITE - WISDOM (NON BILLABLE) Routine 03/02/2022 12:00 AM EDT 12 DO COMPOSITE - WISDOM (NON BILLABLE) Routine 03/02/2022 12:00 AM EDT 7 M COMPOSITE - WISDOM (NON BILLABLE) Routine 03/02/2022 12:00 AM EDT 2 DO COMPOSITE - WISDOM (NON BILLABLE) Routine 03/02/2022 12:00 AM EDT 1 MO COMPOSITE - WISDOM (NON BILLABLE) Routine 03/02/2022 12:00 AM EDT 18 O AMALGAM - WISDOM (NON BILLABLE) Routine 03/02/2022 12:00 AM EDT 19 MO AMALGAM - WISDOM (NON BILLABLE) Routine 03/02/2022 12:00 AM EDT documented in this encounter Visit Diagnoses Not on filedocumented in this encounter Care Teams Binding Cutter Synthetic Cloth Relationship Specialty Start Date End Date Reyna Bernard DMD [address] [place] [address] PCP - General 12/05/20 documented as of this encounter
--- NOTE | 2024-12-11 09:55 | HO.ANESPROP2 ---
Documented by User: Soila Hemphill NP 12/11/24 09:55 HPI - Anesthesia Eval Consult details Narrative: 44yo F for Colonoscopy PMFSH Active Problems Active Problems: All Active Problems History of endometrial ablation (Acute) Tubal ligation status (Acute) Well woman exam with routine gynecological exam (Acute) Encounter for screening examination for sexually transmitted disease (Acute) Cervical cancer screening (Acute) Situational depression (Acute) Left knee pain (Acute) Vaginal bleeding (Acute) Vaginal discharge (Acute) Varicose veins of right lower extremity with inflammation (Acute) Varicose veins of bilateral lower extremities with other complications (Acute) Generalized anxiety disorder (Acute) Breast cancer screening by mammogram (Acute) Annual physical exam (Acute) Colitis (Acute) Lesion of uterus (Acute) Annual physical exam (Acute) Hypercholesterolemia (Acute) Obesity (BMI 30-39.9) (Acute) Hypothyroidism (Acute) Past Medical History Medical History Well woman exam with routine gynecological exam Cervical cancer screening Breast cancer screening Elevated blood sugar Skin tag RLQ abdominal pain Deep dyspareunia Chronic pain syndrome Chronic pelvic pain in female Gram-negative bacteremia Elevated LFTs Thrombocytopenia Abnormal CBC Pelvic pain Umbilical hernia Elevated LFTs COVID-19 virus infection Screen for sexually transmitted diseases HPV test positive Vitamin D deficiency Hypercholesterolemia Obesity (BMI 30-39.9) Hypothyroidism Anemia Family History Family History Father Diabetes HTN (hypertension) High cholesterol Myocardial infarct Mother Lymphoma Maternal Aunt Colon cancer Family history of problems with anesthesia: No Surgical History Surgical History History of umbilical hernia repair History of History of endometrial ablation Tubal ligation status History of Problems with Anesthesia: No Social History Social History Household Members: Spouse, Family and Children Housing: House Are you a primary child care center administrator to a significant other at home: No Do you presently have visiting nurse or other home services: No Alcohol intake: never Comment: once Q 3 months 1 drinks Patient Tobacco Use Status: Never used Tobacco e-Cigarette/Vaping Use: Never Used Second Hand Smoke Exposure: No Use of substances other than those prescribed or required for medical reasons: No Have you been hit, kicked, punched, or otherwise hurt by someone within the past year? If so, by whom?: No Are you DNR?: No Advance Directives: No Advance Directives Information Provided: Yes Recently lost weight without trying: No service: No Current occupational status: employed Cognitive needs: No Hearing needs: No Vision needs: Yes (glasses) Meds Allergies Allergy/AdvReac Type Severity Reaction Status Date / Time No Known Allergies Allergy Verified 08/21/24 08:43 Home Medications ?Medication ?Instructions ?Recorded ?Confirmed ?Last Taken ?Type ferrous sulfate 325 mg (65 mg 325 mg PO DAILY 04/03/21 07/02/24 03/02/22 History iron) tablet Assessment and Plan Assessment Anesthesia Assessment: Chart Reviewed Final Anesthetic Review Family History of Problems with Anesthesia: No History of Problems with Anesthesia: No Documented by User: Shari Maya MD 12/12/24 09:07 [facility] Past Medical History Medical History Well woman exam with routine gynecological exam Cervical cancer screening Breast cancer screening Elevated blood sugar Skin tag RLQ abdominal pain Deep dyspareunia Chronic pain syndrome Chronic pelvic pain in female Gram-negative bacteremia Elevated LFTs Thrombocytopenia Abnormal CBC Pelvic pain Umbilical hernia Elevated LFTs COVID-19 virus infection Screen for sexually transmitted diseases HPV test positive Vitamin D deficiency Hypercholesterolemia Obesity (BMI 30-39.9) Hypothyroidism Anemia Family History Family History Father Diabetes HTN (hypertension) High cholesterol Myocardial infarct Mother Lymphoma Maternal Aunt Colon cancer Surgical History Surgical History History of umbilical hernia repair History of History of endometrial ablation Tubal ligation status Social History Social History Household Members: Spouse, Family and Children Housing: House Are you a primary child care center administrator to a significant other at home: No Do you presently have visiting nurse or other home services: No Alcohol intake: never Comment: once Q 3 months 1 drinks Patient Tobacco Use Status: Never used Tobacco e-Cigarette/Vaping Use: Never Used Second Hand Smoke Exposure: No Use of substances other than those prescribed or required for medical reasons: No Have you been hit, kicked, punched, or otherwise hurt by someone within the past year? If so, by whom?: No Are you DNR?: No Advance Directives: No Advance Directives Information Provided: Yes Recently lost weight without trying: No service: No Current occupational status: employed Cognitive needs: No Hearing needs: No Vision needs: Yes (glasses) Meds Allergies Allergy/AdvReac Type Severity Reaction Status Date / Time No Known Allergies Allergy Verified 08/21/24 08:43 Home Medications ?Medication ?Instructions ?Recorded ?Confirmed ?Last Taken ?Type ferrous sulfate 325 mg (65 mg 325 mg PO DAILY 04/03/21 07/02/24 03/02/22 History iron) tablet Exam Airway Mallampati Class: II TM Dist: >3cm Neck ROM: Full Heart: rrr Lungs: cta Assessment and Plan Assessment Anesthesia Assessment: Anesthesia Plan Discussed Final Anesthetic Review NPO: Yes ASA Class: II Final Preanesthetic Review: No Changes in Pt Med Stat, Meds/Allgs Chart Reviewed and Consent Obtained/Reviewed Patient Risk: Low Procedure Risk: Low Anesthetic Plan Anesthetic Plan: MAC: Disposition: Standard PACU
[2024-12-12 08:49] VITALS: BP 119/74; PULSE 70; RESP 16; TEMP 36.7; O2SAT 98; BMI 31.2
[2024-12-12] MEDS: Lactated Ringers 1,000 ML 100 ML IVCONT (09:04)
--- NOTE | 2024-12-12 10:07 | P.HPSUR_ITS ---
Pre-Procedural Eval Section A - 24 Hr Update-Section A only Date of Service: 12/12/24 Section B - Complete if H&P > 30 days Chief Complaint: Noninfective gastroenteritis and colitis, unspecif Relevant Family History (Specify if Yes): No Relevant Social History: None Present Medications: see Short Stay Collaborative assessment Medical History: Significant History (Elevated blood sugar Skin tag RLQ abdom inal pain Deep dyspareunia Chronic pain syndrome Chronic pelvic pain in female Gram-negative bacteremia Elevated LFTs Thrombocytopenia Abnormal CBC Pelvic pain Umbilical hernia Elevated LFTs COVID-19 virus infection Screen for sexually transmitted diseases HPV ) History of Previous Operations: Relevant previous surgery/procedure and date(s) (History of umbilical hernia repair History of History of endometrial ablation Tubal ligation status) Allergies: Allergies Allergy/AdvReac Type Severity Reaction Status Date / Time No Known Allergies Allergy Verified 08/21/24 08:43 Review of Systems Sugical H&P ROS: Negative: Constitution, Cardiovascular, Respiratory, Neurological, Psychiatric, Hem-Onc, Allergic/Immunologic, Gastrointestinal, Genitourinary, Musculoskeletal, Integumentary, Endocrine and Eyes/Ears/Nose/Throat Exam Surgical H&P Exam: Normal: HEENT, Normal: Heart, Normal: Lungs, Normal: Extremities, Normal: Abdomen, Normal: Skin and Normal: Neurological Plan Diagnosis/Plan: Unchanged I have reviewed the history and physical and performed a pertinent physical examination on my patient. No changes have occurred unless specified. Time Spent With Patient Time: Total time managing care of this patient today ____ minutes.
--- NOTE | 2024-12-12 10:30 | HO.OPN-COLON ---
Colonoscopy Operative Note Operative Note Date of Service: 12/12/24 Narrative: Operative Information Procedure Description: Colonoscopy Indication: hx of colitis Anesthesia: MAC COLONOSCOPY Instrument: Olympus variable stiffness pediatric scope 190L Colonoscopy Monitoring: Vital signs and clinical assessment, continuous EKG monitoring, Pulse oximetry, Carbon Dioxide monitoring and blood pressure monitoring were done throughout the procedure. Colon withdrawal time was 11 minutes. Procedure: The patient was placed in the left lateral decubitis position and pre-procedure medications were administered. After a digital rectal examination of the ano-rectum, the video colonoscope was inserted into the rectum and advanced through the colon to the cecum/TI. The colonoscope was slowly withdrawn in a retrograde panoramic fashion and the colon mucosa was carefully examined including a retroflexed view of the rectum. Findings and interventions are described below. Procedure Difficulty: easy Findings: Terminal Ileum- mild ileitis- bx taken random bx taken from right and left colon in separate jars Cecum:normal Ascending Colon: normal Transverse Colon -normal Descending Colon: 5-7 mm sessile polyp removed with cold snare Sigmoid Colon: normal Rectum: Retroflexion with small internal hemorrhoids seen, grade I Anorectum - normal Intervention: cold snare Colon preparation: [place] Bowel Preparation Scale Right colon; 2 Transverse colon: 2 Left colon; 2 (0 = Unprepared colon segment with mucosa not seen due to solid stool that cannot be cleared. 1 = Portion of mucosa of the colon segment seen, but other areas of the colon segment not well seen due to staining, residual stool and/or opaque liquid. 2 = Minor amount of residual staining, small fragments of stool and/or opaque liquid, but mucosa of colon segment seen well. 3 = Entire mucosa of colon segment seen well with no residual staining, small fragments of stool or opaque liquid) Impression and Post Procedure Diagnosis: colon polyp internal hemorrhoids Plan: High fiber diet leaflet Avoid straining at stool, epsom salts and sitz bath, anusol supps or cream Repeat Colonoscopy in 5 years if adenoma, 10 yrs if hyperplastic or earlier if clinically indicated Above findings were reviewed with the patient and relevant handouts were provided if indicated.
[2024-12-12 10:32] VITALS: BP 107/66; PULSE 71; TEMP 36.1; O2SAT 99
[2024-12-12 10:47] VITALS: BP 131/87; PULSE 61; RESP 18; TEMP 36.1; O2SAT 100
== END 2024-12-12 11:07 | disposition home or self-care (01) ==
PROVIDERS: PCP Internal Medicine; Visit Provider Internal Medicine Gastroenterology
PROC: 0DJD8ZZ Inspection of Lower Intestinal Tract, Via Natural or Artificial Opening Endoscopic (ICD-10-PCS; CPT 45378; principal; 2024-12-12 10:30)
DX: K63.5 Polyp of colon (principal); K64.0 First degree hemorrhoids; K52.9 Noninfective gastroenteritis and colitis, unspecified; K59.04 Chronic idiopathic constipation; Z98.51 Tubal ligation status; E03.9 Hypothyroidism, unspecified; E78.00 Pure hypercholesterolemia, unspecified; D64.9 Anemia, unspecified; E53.9 Vitamin B deficiency, unspecified
CPT/HCPCS: 45385; 45380; 88305; J2003; J2704

== ENCOUNTER → 2024-12-12 08:43 | Outpatient (BNV) | payer OTHER, SELFPAY | PROVIDERS: PCP Internal Medicine; Visit Provider Internal Medicine Gastroenterology | DX: K52.9 Noninfective gastroenteritis and colitis, unspecified (principal); K63.5 Polyp of colon; K64.0 First degree hemorrhoids | CPT/HCPCS: 45380; 45385 ==

== ENCOUNTER 2025-01-01 13:53 | Outpatient (AMB) | payer OTHER, SELFPAY ==
--- NOTE | 2025-01-01 13:55 | MHC.OFFVIS ---
Vital Signs 01/01/25 13:56 Height 5 ft Weight 162 lb BMI 31.6 BP 110/86 Blood Pressure Location Rt brachial Position Sitting Pulse 58 Pulse Source Pulse Oximeter Pulse Oximetry (%) 97 Oxygen Delivery Method Room Air Intake Visit Reasons: s/p colo, discuss CT order Intake Note: ESTABLISHED PATIENT for s/p colo, hyperplastic - [address] to r/o Crohn's. Chief Complaint; No GI sx at this time. Condition well controlled per pt. Acid Painter Required: No Accompanied by: Self / Same As Patient Allergies No Known Allergies Allergy (Verified 01/01/25 13:55) HPI HPI s/p colo, discuss CT order: Details: LAST VISIT Colitis RLQ abdominal pain Diarrhea Chronic idiopathic constipation Plan Patient will get CRC done and stool calprotectin. CT enterography did not show any inflammatory changes. Normal vitamin levels. Discussed with patient FODMAP diet. Patient has a list at home of food that she should avoid. Due to family history of CRC and change in bowel pattern patient will be sent for colonoscopy. Message sent to surgical schedulers to book one. Patient denies any issues with anesthesia in the past. No history of sleep apnea. Not on any anticoagulation medication. No history of infectious diseases in the past or present. Denies melena, hematochezia, unintentional weight loss or ribbon like stools. Patient will be seen after the procedure, sooner on as needed basis. She is agreeable plan and verbalizes understanding of instructions. She was given the opportunity to ask questions and all questions answered. ? COLONOSCOPY: Findings: Terminal Ileum- mild ileitis- bx taken random bx taken from right and left colon in separate jars Cecum:normal Ascending Colon: normal Transverse Colon -normal Descending Colon: 5-7 mm sessile polyp removed with cold snare Sigmoid Colon: normal Rectum: Retroflexion with small internal hemorrhoids seen, grade I Anorectum - normal Intervention: cold snare Colon preparation: [place] Bowel Preparation Scale Right colon; 2 Transverse colon: 2 Left colon; 2 (0 = Unprepared colon segment with mucosa not seen due to solid stool that cannot be cleared. 1 = Portion of mucosa of the colon segment seen, but other areas of the colon segment not well seen due to staining, residual stool and/or opaque liquid. 2 = Minor amount of residual staining, small fragments of stool and/or opaque liquid, but mucosa of colon segment seen well. 3 = Entire mucosa of colon segment seen well with no residual staining, small fragments of stool or opaque liquid) Impression and Post Procedure Diagnosis: colon polyp internal hemorrhoids Plan: High fiber diet leaflet Avoid straining at stool, epsom salts and sitz bath, anusol supps or cream Repeat Colonoscopy in 5 years if adenoma, 10 yrs if hyperplastic or earlier if clinically indicated PATHOPHYSIOLOGY Diagnosis A. Terminal ileum, biopsy: Mild chronic inactive ileitis; no granulomas or dysplasia. B. Colon, right, biopsy: Colonic mucosa with colonic mucosa with lymphoid aggregates and no specific change; no colitis, granulomas or dysplasia. C. Colon, left, biopsy: Colonic mucosa with no specific change; no colitis, granulomas or dysplasia. D. Colon, descending, polyp: Hyperplastic polyp TODAY'S VISIT Patient is here today for follow-up and to discuss colonoscopy results. Patient denies any ill effects from the prep, anesthesia or procedure itself. Patient reports that she has been doing fairly well since the procedure. CT enterography in March of 2024 was normal. No inflammatory bowel disease found. Patient on the colonoscopy had 1 hyperplastic polyp no colitis granulomas or dysplasia. Multiple biopsies taken from her colon. Patient denies any GI concerning symptoms and reports to be feeling well. 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 Does admit to occasional stress. Patient does admit that her symptoms are related sometimes to the food that she eats and maybe not enough fiber intake. [facility], LAT[facility] Medical History Well woman exam with routine gynecological exam Cervical cancer screening Breast cancer screening Elevated blood sugar Skin tag RLQ abdominal pain Deep dyspareunia Chronic pain syndrome Chronic pelvic pain in female Gram-negative bacteremia Elevated LFTs Thrombocytopenia Abnormal CBC Pelvic pain Umbilical hernia Elevated LFTs COVID-19 virus infection Screen for sexually transmitted diseases HPV test positive Vitamin D deficiency Hypercholesterolemia Obesity (BMI 30-39.9) Hypothyroidism Anemia Surgical History History of umbilical hernia repair History of History of endometrial ablation Tubal ligation status Family History Father Diabetes HTN (hypertension) High cholesterol Myocardial infarct Mother Lymphoma Maternal Aunt Colon cancer Social History Household Members: Spouse, Family and Children Housing: House Are you a primary complex care nurse practitioner to a significant other at home: No Do you presently have visiting nurse or other home services: No Alcohol intake: never Comment: once Q 3 months 1 drinks Patient Tobacco Use Status: Never used Tobacco e-Cigarette/Vaping Use: Never Used Second Hand Smoke Exposure: No service: No Current occupational status: employed Cognitive needs: No Hearing needs: No Vision needs: Yes (glasses) Female Reproductive History Menstrual Age of Menarche: 11 Review of Systems Const Denies weight gain and Denies weight loss ENT Reports no additional complaints, Denies dysphagia and Denies odynophagia Card Reports no additional complaints Resp Reports no additional complaints GI Denies abdominal pain, Denies belching, Denies melena, Denies bloating, Denies change in bowel habits, Denies dysphagia, Denies excessive flatus, Denies dyspepsia, Denies heartburn, Denies diarrhea, Denies loose stools, Denies nausea, Denies odynophagia and Denies vomiting Musc Reports no additional complaints Neuro Reports no additional complaints Psych Reports no additional complaints Endo Reports no additional complaints Physical Exam Vital Signs: Last Vital Signs Pulse 58 01/01/25 13:56 BP 110/86 01/01/25 13:56 Pulse Ox 97 01/01/25 13:56 Oxygen Delivery Method Room Air 01/01/25 13:56 BMI result Body Mass Index 31.6 Results Reviewed Results Reviewed: CT ENTEROGRAPHY 04/17/2024 FINDINGS: GASTROINTESTINAL FINDINGS: Stomach: Well-distended and normal in appearance. Small intestine: Satisfactorily distended and normal in appearance. Large intestine: Moderate colonic stool burden with fluid contents. No pericolonic inflammatory changes. No perirectal changes demonstrated. The appendix is normal. Additional findings: No abnormal enhancement of the vasa recta or significant mesenteric or retroperitoneal lymphadenopathy is seen. No abdominal abscess or fistulous tract demonstrated. ABDOMINAL AND PELVIC CT FINDINGS: Liver, gallbladder, biliary tract: The liver is normal in size shape and attenuation. Focal hypoattenuation along the falciform ligament may be related to focal fat infiltration. Otherwise no focal hepatic lesion. There is no biliary ductal dilation. The gallbladder is partially contracted limiting evaluation. There is no evidence of radiopaque gallstones or pericholecystic inflammatory changes. Pancreas: Unremarkable Spleen: Unremarkable Adrenal glands and kidneys: Bilateral adrenal glands are unremarkable. Symmetric nephrograms. No renal calculus or hydronephrosis. Ureters and bladder: No hydroureter. Urinary bladder is well-distended and appears unremarkable. Pelvis: Approximately 2.7 cm hypoattenuating lesion in the left aspect of the lower uterine segment/cervix likely compatible with an intramural fibroid 1.9 cm simple left ovarian cyst, for which no dedicated orbital imaging is required. Lymphovascular structures: The abdominal aorta is normal in caliber. No [id number] lymphadenopathy. Bones: No acute or suspicious osseous abnormality. Lung bases: Unremarkable CT/CT enterography IMPRESSION: No acute abdominopelvic abnormality. No definite findings to suggest infectious or inflammatory enteritis or colitis. Liquid stool throughout the colon can be seen with diarrhoeal disease. Assessment & Plan Assessment & Plan (1) RLQ abdominal pain: Code(s): R10.31 - Right lower quadrant pain Category: Medical (2) Diarrhea: Code(s): R19.7 - Diarrhea, unspecified (3) Chronic idiopathic constipation: Code(s): K59.04 - Chronic idiopathic constipation (4) History of colitis: Code(s): Z87.19 - Personal history of other diseases of the digestive system Plan Patient had normal colonoscopy and normal CT enterography. Her symptoms are most likely related to IBS with both diarrhea and constipation. Patient will continue high-fiber diet. Continue avoiding dietary triggers. Follow-up on as needed basis. She is agreeable to this plan and verbalizes understanding of instructions. She was given the opportunity to ask questions and all questions answered. Thank you for allowing me to participate in her care Coding Level of Care Code Est Pt Level 3 (76495) Diagnoses RLQ abdominal pain R10.31 Diarrhea R19.7 Chronic idiopathic constipation K59.04 History of colitis Z87.19 Time Spent (min) 30 Comment 20 minutes spent with patient and additional 10 minutes spent reviewing her records
[2025-01-01 13:56] VITALS: BP 110/86; PULSE 58; O2SAT 97; BMI 31.6
--- OUTSIDE RECORDS SUMMARY | 2025-01-01 17:00 | XMS_ITS | Clinical Summary ---
Author Organization [facility] Address [address] [place] [address] Care Team Providers Care Forest Practices Field Coordinator Name Role Phone Reyna Bernard DMD Primary Care Provider [phone] Source Comments PLEASE NOTE, if this patient [...] Encounters Date Type Department Care Team Description 12/05/2024 9:40 AM EDT Office Visit [facility] [address] [place] [phone] Clover Miranda DDS Fractured dental catholic with loss of material (Primary Dx) 10/19/2024 10:40 AM EST Office Visit [facility] [address] [place] [phone] Clover Miranda DDS Fractured dental catholic with loss of material (Primary Dx) from [...] Sign Reading Time Taken Comments Blood Pressure 130/88 12/05/2024 9:50 AM EDT Pulse 65 12/05/2024 9:50 AM EDT Temperature - - Respiratory Rate - - Oxygen Saturation - - Inhaled Oxygen Concentration - - Weight - - Height - - Body Mass Index - - Plan of Treatment Health Maintenance Due Date Last Done Comments Anxiety Screening 1982 Dental Perio Charting 1982 Diabetes Screening 1982 HPV Screening 1982 Hepatitis C Screening 1982 Lipid Screening 1982 Pap + HPV 1982 HIV Screening 1997 Relationship Safety Screening/Counseling 1997 Imm-DTaP/Tdap/Td (1 - Tdap) 2001 Imm-Hepatitis B (1 of 3 - 19 + 3-dose series) 2001 Cervical Cancer Screening 2003 Pap Smear 2003 Breast Cancer Screening (Mammogram) 2022 Dental BW 01/29/2024 01/26/2023, 07/29/2022 Dental Examination 01/29/2024 01/26/2023, 07/29/2022 Dental Prophy 01/29/2024 01/26/2023, 07/29/2022 [id number] ( season) 2024 Imm-Influenza (#1) 2024 Alcohol and Drug Screen 09/26/2024 Depression Annual Screen 09/26/2024 Hypertension Screening (#1) 12/05/2025 Tobacco Screening 12/05/2025 12/05/2024 Dental FMX/Pano 10/22/2027 10/20/2022 Cervical Ablation/Cold-Knife Conization Discontinued Cervical Cryotherapy Discontinued Colposcopy Discontinued Endometrial Biopsy Discontinued Excision/Leep Discontinued HPV Genotyping Discontinued Vaginal Pap Discontinued Vulvoscopy Discontinued Procedures Procedure Name Priority Date/Time Associated Diagnosis Comments 31 LO RESIN-BASED COMPOSITE - TWO SURFACES POSTERIOR Routine 12/05/2024 9:40 AM EDT Fractured dental catholic with loss of material CASE PRESENTATION SUBS DTL & EXTENSIVE TX PLN Routine 12/05/2024 9:40 AM EDT Fractured dental catholic with loss of material INTRAORAL - PERIAPICAL EACH ADD RADIOGRAPH IMAGE Routine 10/19/2024 10:40 AM EST Fractured dental catholic with loss of material LIMITED ORAL EVALUATION - PROBLEM FOCUSED Routine 10/19/2024 10:40 AM EST Fractured dental catholic with loss of material CASE PRESENTATION SUBS DTL & EXTENSIVE TX PLN Routine 10/19/2024 10:40 AM EST Fractured dental catholic with loss of material BITEWINGS - FOUR [...] or Most Recently Relevant to Health Maintenance Insurance [employer] Care Teams Forest Practices Field Coordinator Relationship Specialty Start Date End Date Reyna Bernard DMD [address] [place] [address] PCP - General 12/05/20
--- OUTSIDE RECORDS SUMMARY | 2025-01-01 17:00 | XMS_ITS | Encounter Summary ---
Author Organization [facility] Address [address] [place] [address] Care Team Providers Care Bean Sprout Laborer Name Role Phone Reyna Bernard ERYN Primary Care Provider [phone] Encounter Details Date Type Department Care Team (Late st Contact Info) Description 03/02/2022 Dental Interim Note [facility] [address] [place] [phone] GaviriaRomelia santana Y [address] [place], [place] [phone] Social History Tobacco Use Types Packs/Day Years [...] as of this encounter Plan of Treatment Not on file documented as of this encounter Procedures Procedure [...] on filedocumented in this encounter Care Teams Bean Sprout Laborer Relationship Specialty Start Date End Date Reyna Bernard DMD [address] [place] [address] PCP - General 12/05/20 documented as of this encounter
--- OUTSIDE RECORDS SUMMARY | 2025-01-01 17:00 | XMS_ITS | Clinical Summary ---
Author Organization [facility] it Address [address] [place] [address] Care Team Providers Care Inspector Materials And Processes Name Role Phone Tom Gage MD Primary Care Provider [phone] Social History Tobacco Use Types Packs/Day Years [...] age to complete this topic Meningococcal B Vaccine Aged Out No l onger eligible based on patient's age to complete [...] age to complete this topic Care Teams Inspector Materials And Processes Relationship Specialty Start Date End Date Tom Gage MD [address] [place] [address] [address] [facility] [place] [address] PCP - General Internal Medicine 03/19/13
== END 2025-01-01 14:16 | disposition home or self-care (01) ==
LOC: HO.HGI 13:54
PROVIDERS: PCP Internal Medicine; Visit Provider Nurse Practitioner Family
DX: R10.31 Right lower quadrant pain (principal); R19.7 Diarrhea, unspecified; K59.04 Chronic idiopathic constipation; Z87.19 Personal history of other diseases of the digestive system
CPT/HCPCS: 99213

== ENCOUNTER 2025-08-01 08:20 | Outpatient (REF) | payer OTHER, SELFPAY ==
[2025-08-01 08:33] LABS: MANUAL DIFF FLAG NO
--- OUTSIDE RECORDS SUMMARY | 2025-08-01 08:41 | XMS_ITS | Clinical Summary ---
Author Organization [facility] ity Address [address] [place] [address] Care Team Providers Care Sld Inclusion Teacher Name Role Phone Tom Gage MD Primary Care Provider [phone] Social History Tobacco Use Types Packs/Day Years [...] Cervical Cancer Screening: P ap Smear 2003 HPV Vaccines (1 - 3-dose SCD M series) 2009 Depression Screening 09/26/2024 COVID-19 Vaccine (1 - 2023-2 5 season) 2025 Influenza Vaccine (#1) 2025 RSV Immunization Adult Patie nts (1 - 1-dose 75+ series) 2057 HIB Vaccines Aged Out No longer eligi [...] 5 Years) and At-Risk Patients (6 to 49 Years) Aged Out No longer eligible b ased on patient's age to complete this topic RSV Immunization Patients Un armand 20 months Aged Out No longer eligible b ased on patient's age to complete this topic Varicella Vaccines Aged Out No longer eligible based on patient's age to complete this topic Care Teams Sld Inclusion Teacher Relationship Specialty Start Date End Date Tom Gage MD [address] [place] [address] [address] [facility] [place] [address] PCP - General Internal Medicine 03/19/13
--- OUTSIDE RECORDS SUMMARY | 2025-08-01 08:41 | XMS_ITS | Clinical Summary ---
Author Organization [facility] Address [address] [place] [address] Care Team Providers Care Mud Jack Operator Name Role Phone Reyna Bernard DMD Primary Care Provider [phone] Source Comments PLEASE NOTE, if this patient [...] Active Active Problems No known active problems Social History Tobacco Use Types Packs/Day Years [...] Charting 1982 Diabetes Screening 1982 HPV Screening (self-collect) 1982 HPV Screening 1982 Hepatitis C Screening 1982 Lipid Screening 1982 Pap + HPV 1982 HIV Screening 1997 Relationship Safety Screening/Counseling 1997 Imm-DTaP/Tdap/Td (1 - Tdap) 2001 Imm-Hepatitis B (1 of 3 - 19 + 3-dose series) 2001 Cervical Cancer Screening 2003 Pap Smear 2003 Imm-HPV (1 - 3-dose SCDM series) 2009 Breast Cancer Screening (Mammogram) 2022 Dental BW 01/29/2024 01/26/2023, 07/29/2022 Dental Examination 01/29/2024 01/26/2023, 07/29/2022 Dental Prophy 01/29/2024 01/26/2023, 07/29/2022 Alcohol and Drug Screen 09/26/2024 Depression Annual Screen 09/26/2024 [id number] ( season) 2025 Imm-Influenza (#1) 2025 Hypertension Screening (#1) 12/05/2025 Tobacco Screening 12/05/2025 12/05/2024 Dental FMX/Pano 10/22/2027 10/20/2022 Cervical Ablation/Cold-Knife Conization Discontinued Cervical Cryotherapy Discontinued Colposcopy Discontinued Excision/Leep Discontinued HPV Genotyping Discontinued Vaginal Pap Discontinued Vulvoscopy Discontinued Procedures Procedure Name Priority Date/Time Associated Diagnosis Comments BITEWINGS - FOUR RADIOGRAPHIC IMAGES Routine 01/26/2023 [...] Health Maintenance Insurance [employer] Care Teams Mud Jack Operator Relationship Specialty Start Date End Date Reyna Bernard DMD [address] [place] [address] PCP - General 12/05/20
--- OUTSIDE RECORDS SUMMARY | 2025-08-01 08:41 | XMS_ITS | Encounter Summary ---
Author Organization [facility] Address [address] [place] [address] Care Team Providers Care Mechanical Car Checker Name Role Phone Reyna Bernard ERYN Primary Care Provider [phone] Encounter Details Date Type Department Care Team (Late st Contact Info) Description 03/02/2022 Dental Interim Note [facility] [address] [place] [phone] GaviriaRomelia santana Y [address] [place], [place] [phone] Social History Tobacco Use Types Packs/Day Years [...] on filedocumented in this encounter Care Teams Mechanical Car Checker Relationship Specialty Start Date End Date Reyna Bernard DMD [address] [place] [address] PCP - General 12/05/20 documented as of this encounter
[2025-08-01 09:00] LABS: Hematocrit 41.3 % (37.0-47.0); Hemoglobin 13.6 g/dl (12.0-16.0); Imm Gran Abs Auto 0.02 X10*3/uL (0.00-0.03); Imm Gran Pct Auto 0.3 % (0.0-0.4); Lymphocytes Absolute Auto 2.5 X10*3/uL (1.2-4.9); Mean Corpuscular HGB Conc 32.9 g/dl (31.0-35.0); Mean Corpuscular Hemoglobin 30.5 pg (27.0-33.0); Mean Corpuscular Volume 92.6 fL (80.0-98.0); NRBC Abs Auto 0.000 X10*3/uL (0.0-0.012); NRBC Pct Auto 0.0 /100WBC (0.0-0.2); Platelet Count 251 X10*3/uL (160-400); Red Blood Count 4.46 X10*6/uL (4.20-5.50); White Blood Count 6.4 X10*3/uL (4.8-10.8)
[2025-08-01 09:36] LABS: Alanine Aminotransferase 19 U/L (0-31); Albumin Level 4.4 g/dL (3.5-5.0); Alkaline Phosphatase 55 U/L (39-117); Anion Gap 10 (12-20); Aspartate Amino Transferase 20 U/L (5-31); Blood Urea Nitrogen 12 mg/dL (9-16); Calcium 9.0 mg/dL (8.4-10.2); Carbon Dioxide 27 mmol/L (22-29); Chloride 108 mmol/L (96-108); Cholesterol 212 mg/dL (<200); Estimated Glomerular Filt Rate > 60; HDL Cholesterol 39 mg/dL (>40); Potassium 4.1 mmol/L (3.3-5.1); Sodium 141 mmol/L (135-145); Total Protein 7.3 g/dL (6.5-8.0); Triglycerides 83 mg/dL (<150)
[2025-08-01 09:59] LABS: Free T4 (Free Thyroxine) 1.17 ng/dL (0.71-1.85); Thyroid Stimulating Hormone 0.18 uIU/mL (0.32-4.0)
[2025-08-01 10:02] LABS: Folate 10.4 ng/mL (> or = 4.0); Vitamin B12 548 pg/mL (200-900)
[2025-08-01 10:18] LABS: Appearance Urine Clear; Glucose Urine UA Negative (Negative); PH 5.5 (5.0-9.0); Specific Gravity - Urine >= 1.030 (1.005-1.025)
[2025-08-04 03:09] LABS: TS Negative Control Passed; TS Panel A 1; TS Panel B 0; TS Positive Control Passed; TSpotTB Negative (Negative)
== END 2025-08-01 08:21 | disposition home or self-care (01) ==
LOC: HO.LAB 08:20
PROVIDERS: PCP Internal Medicine; Visit Provider Internal Medicine
DX: Z11.1 Encounter for screening for respiratory tuberculosis (principal); Z13.21 Encounter for screening for nutritional disorder; R30.0 Dysuria; E78.00 Pure hypercholesterolemia, unspecified; E03.9 Hypothyroidism, unspecified
CPT/HCPCS: 36415; 80053; 80061; 81003; 82306; 82607; 82746; 84439; 84443; 85025; 86481

== ENCOUNTER 2025-08-02 13:10 | Outpatient (AMB) | payer OTHER, SELFPAY ==
[2025-08-02 13:12] VITALS: BP 110/82; PULSE 73; TEMP 36.2; O2SAT 99; BMI 33.3
--- NOTE | 2025-08-02 13:12 | A.OFFPC_ITS ---
Vital Signs 08/02/25 13:12 Height 5 ft Weight 170 lb 8 oz BMI 33.3 BP 110/82 Blood Pressure Location Lt brachial Position Sitting Pulse 73 Pulse Source Pulse Oximeter Temp 97.1 F Temp Source Temporal Artery Scan Pulse Oximetry (%) 99 Oxygen Delivery Method Room Air Intake Visit Reasons: Annual Allergies No Known Allergies Allergy (Verified 08/02/25 13:18) Medication List - Last Reconciled 08/02/25 by Tom Gage MD biotin 1 mg PO DAILY ferrous sulfate 325 mg PO DAILY hydroxyzine HCl 25 mg PO TID PRN levothyroxine 88 mcg PO take once a day fro 6 days a week; Tobacco use date assessed: 08/02/25 Dental Screening Dental Screen Date: 08/02/25 Did you have a dental visit in the last 12 months?: Yes Did you have a dental problem in the last 6 months where you did not have access to dental care?: No Was dental information given to patient?: Patient has dentist [facility] Medical History (Updated 08/02/25 @ 13:26 by Tom Gage MD) Annual physical exam Well woman exam with routine gynecological exam Cervical cancer screening Breast cancer screening Elevated blood sugar Skin tag RLQ abdominal pain Deep dyspareunia Chronic pain syndrome Chronic pelvic pain in female Gram-negative bacteremia Elevated LFTs Thrombocytopenia Abnormal CBC Pelvic pain Umbilical hernia Elevated LFTs COVID-19 virus infection Screen for sexually transmitted diseases HPV test positive Vitamin D deficiency Hypercholesterolemia Obesity (BMI 30-39.9) Hypothyroidism Anemia Surgical History History of umbilical hernia repair History of History of endometrial ablation Tubal ligation status Family History Father Diabetes HTN (hypertension) High cholesterol Myocardial infarct Mother Lymphoma Maternal Aunt Colon cancer Social History Household Members: Spouse, Family and Children Housing: House Are you a primary healthcare management to a significant other at home: No Do you presently have visiting nurse or other home services: No Alcohol intake: never Comment: once Q 3 months 1 drinks Patient Tobacco Use Status: Never used Tobacco e-Cigarette/Vaping Use: Never Used Second Hand Smoke Exposure: No service: No Current occupational status: employed Cognitive needs: No Hearing needs: No Vision needs: Yes (glasses) Female Reproductive History Menstrual Age of Menarche: 11 Questionnaire PHQ-9 Over the last 2 weeks, how often have you been bothered by any of the following problems? 1. Little interest or pleasure in doing things: not at all 2. Feeling down, depressed, or hopeless: not at all 3. Trouble falling or staying asleep, or sleeping too much: not at all 4. Feeling tired or having little energy: not at all 5. Poor appetite or overeating: not at all 6. Feeling bad about yourself - or that you are a failure or have let yourself or your family down: not at all 7. Trouble concentrating on things, such as reading the newspaper or watching television: not at all 8. Moving or speaking so slowly that other people could have noticed. Or the opposite - being so fidgety or restless that you have been moving around a lot more than usual: not at all 9. Thoughts that you would be better off or of hurting yourself in some way: not at all Total score: 0 Depression Screening Interpretation: Negative Depression Screening Done: Yes 56421 - PHQ-9 Billing: Yes Source: Developed by Drs. Gunnar La, Haley Moran, Yimi Patton and colleagues, with an educational markie from [employer]. Thrive Questionnaire Date Thrive assessed: 08/02/25 I am a: Patient What is your living situation today?: I have a steady place to live Within the past 12 months, did the food you bought not last and you didn't have the money to get more?: Never true Within the past 12 months, did you worry whether your food would run out before you got money to buy more?: Never true Do you have trouble paying for medicines?: No Do you have trouble getting transportation to medical appointments?: No Do you have trouble paying your heating and electricity bill?: No Do you have trouble taking care of your child, family member or friend?: No Do you have trouble with day-to-day activities such as bathing, preparing meals, shopping, managing finances, etc.?: No Are you currently unemployed and looking for a job?: No Are you interested in more education?: No Please select the resources that you would like help with: None Currently or been in a relationship where the following occur: I choose not to answer THRIVE Score: 0 AUDIT C Alcohol Use Questionnaire (AUDIT-C) 1. How often do you have a drink containing alcohol?: Monthly or less 2. How many drinks containing alcohol do you have on a typical day when you are drinking?: 1 or 2 3. How often do you have six or more drinks on one occasion?: Never Total Score: 1 SWETHA-7 AMB Questionnaire SWETHA-7 Date SWETHA - 7 assessed: 08/02/25 Feeling nervous, anxious, or on edge: 0 = Not at all Not being able to stop or control worryin = Not at all Worrying too much about different things: 0 = Not at all Trouble relaxin = Not at all Being so restless that it is hard to sit still: 0 = Not at all Becoming easily annoyed or irritable: 0 = Not at all Feeling afraid as if something awful might happen: 0 = Not at all Total SWETHA-7 score (0-4 normal; 5-9 mild; 10-14 moderate; 15-21 severe): 0 Source: Developed by Drs. Gunnar La, Haley Moran, Yimi Patton and colleagues, with an educational markie from [employer]. SWETHA-7 Assessment Billing SWETHA-7 Assessment Tool: SWETHA-7 Assessment 12288 Review of Systems Const Denies poor appetite and Denies weakness Eyes Denies no additional complaints ENT Reports Normal hearing present, Denies dizziness, Denies nasal congestion, Denie s tinnitus and Denies sore throat Card Denies chest pain, Denies syncope, Denies rapid heart rate and Denies dyspnea Resp Denies cough and Denies dyspnea GI Denies change in stool character, Reports constipation, Denies diarrhea, Denies nausea and Denies vomiting Denies urinary frequency, Denies difficulty voiding and Denies dysuria Neuro Reports Normal hearing present, Denies confusion, Denies dizziness, Denies syncope and Denies weakness Psych Denies confusion Physical exam (Primary Care) Vital Signs: Last Vital Signs Temp 97.1 F 08/02/25 13:12 Pulse 73 08/02/25 13:12 BP 110/82 08/02/25 13:12 Pulse Ox 99 08/02/25 13:12 Oxygen Delivery Method Room Air 08/02/25 13:12 BMI result Body Mass Index 33.3 Tobacco/Smoking Status: Tobacco use Status Tobacco use date assessed 08/02/25 08/02/25 13:19 Patient Tobacco Use Status Never used Tobacco 08/02/25 13:19 Tobacco use type 06/06/24 10:56 e-Cigarette/Vaping Use Never Used 08/02/25 13:19 PHQ-9: PHQ-9 Score PHQ-9: Total score 0 08/02/25 13:27 Depression Screening Interpretation: Negative Thrive Assessment: Date of Thrive Assessment Date Thrive assessed 08/02/25 08/02/25 13:19 Currently or been in a relationship where the following occur: I choose not to answer Const General: No confusion Orientation/consciousness: No confusion HENMT Head: Yes normocephalic Ears: external ears normal and TM's normal bilaterally Face and sinus: Yes normal facial exam Mouth: moist mucous membranes Throat: Yes tonsils normal Eyes Conjunctivae: conjunctivae normal Pupils: Equal, round and reactive pupils present and Pupil accommodation reflex normal Direct Ophthalmoscopy: normal light reflex Neck Neck: No lymphadenopathy Thyroid: Thyroid normal Chest Chest palpation & inspection: normal inspection of the chest Resp Effort & Inspection: normal respiratory effort and no audible wheezes Auscultation: clear to auscultation bilaterally, no crackles, no wheezes and lung sounds not diminished Cardio Rate: regular rate Rhythm: regular rhythm Peripheral pulses: radial pulses present and dorsalis pedis present GI Palpation (GI): no masses Auscultation: normal bowel sounds and normoactive bowel sounds Rectal Exam - Female: deferred Skin General skin exam: no rashes or lesions noted Rashes: no rashes Neuro General: No confusion Cranial nerves: Yes Equal, round and reactive pupils present and Yes Normal hearing present Cognition (Neuro): normal cognition Gait exam (Neuro): Normal gait present Motor exam (neuro): 5/5 motor strength present throughout Deep tendon reflexes (DTR's): Right brachioradialis reflex intensity grade: 2+, Left brachioradialis reflex intensity grade: 2+, Right patellar reflex intensity grade: 2+ and Left patellar reflex intensity grade: 2+ Extrem General: No edema Coding Level of Care Code Est Pt Prev Care 40-64y(72847) Diagnoses Annual physical exam Z00.00 Obesity (BMI 30-39.9) E66.9 Acquired hypothyroidism E03.9 Hypothyroidism type: acquired Hypercholesterolemia E78.00 Generalized anxiety disorder F41.1 Additional Codes SWETHA-7 Assessment Billing - SWETHA-7 Assessment Tool: SWETHA-7 Assessment 71208 ([id number]) PHQ-9 - 14986 - PHQ-9 Billing: Yes ([id number]) Assessment & Plan Assessment & Plan (1) Annual physical exam: Code(s): Z00.00 - Encounter for general adult medical examination without abnormal findings Category: Medical Plan: Patient is advised to eat healthy, keep well hydrated, keep active and have adequate sleep. (2) Obesity (BMI 30-39.9): Code(s): E66.9 - Obesity, unspecified Category: Medical Plan: Diet and exercise (3) Hypothyroidism: Comment: hyperthyroidism status post iodine ablation Code(s): E03.9 - Hypothyroidism, unspecified Category: Medical Qualifiers: Hypothyroidism type: acquired Qualified Code(s): E03.9 - Hypothyroidism, unspecified Plan: Discussed with the patient about the TSH being low and advised to take thyroid medication 6 days a week (4) Hypercholesterolemia: Code(s): E78.00 - Pure hypercholesterolemia, unspecified Category: Medical Plan: Avoid fried foods, chicken skin, eggs, butter margarine, pastries and meat. Be it pork or beef they have a lot of cholesterol LDL goal of less than 130 and triglyceride of less than 150 (5) Generalized anxiety disorder: Comment: Declined counseling Code(s): F41.1 - Generalized anxiety disorder Category: Medical Plan: Stable Plan History of Present Illness The patient is a 45-year-old obese female presenting for a physical exam. She has a past medical history of hypothyroidism, hypercholesterolemia, generalized anxiety disorder, and situational depression. Her history is notable for a recent gastroenterology evaluation in December, which included a colonoscopy and a CT enterography. The CT enterography was normal, and the colonoscopy revealed a hyperplastic polyp and mild chronic inactive ileitis, with negative biopsies. Her symptoms were attributed to irritable bowel syndrome (IBS), and she is considered to be clear from a colon screening perspective for 10 years. Recent blood work from July showed a normal blood count with no anemia, normal electrolytes, and normal renal and liver function. Her blood sugar was normal, and she is not prediabetic. However, her cholesterol was elevated with an LDL of 157 mg/dL, vitamin D was mildly low, and her thyroid stimulating hormone was low, for which she was advised to adjust her thyroid medication to six days a week. The patient reports an 8-pound weight gain since December and struggles to lose weight. She has a positive HPV status, requiring annual Pap smears. She also has a history of tinnitus, for which an MRI was normal aside from an incidental pi nancy gland cyst. Current medications include thyroid medication, hydroxyzine as needed, and biotin for hair growth. She does not take her iron supplement regularly due to constipation. Family history is significant for a father with a heart attack, a mother with lymphoma, and an aunt with colon cancer. Health Maintenance The patient has a mammogram scheduled for July. Due to her HPV-positive status, she will continue with annual Pap smears. She was reminded that her tetanus vaccine is due next year. The patient declined the influenza and COVID- 19 vaccines at this visit. Counseled on the importance of staying well-hydrated, eating a healthy diet, and increasing physical activity. Social History - Alcohol Use: Reports drinking alcohol infrequently, about once every three months. - Tobacco Use: Denies smoking. - Illicit Drug Use: Denies recreational drug use. - Nutrition: Reports struggling with her weight and acknowledges eating too much, though she tries to avoid greasy and fatty foods. - Exercise: Acknowledges the need to increase physical activity. Review of Systems - General: Reports weight gain and difficulty with weight loss. - Constitutional: Denies fever. - HEENT: Reports tinnitus but denies dizziness. - Cardiovascular: Denies chest pain, heaviness, or discomfort. - Neurological: Denies syncope. - Respiratory: Denies shortness of breath, including on exertion or at night. - Gastrointestinal: Denies nausea, vomiting, dysphagia, or heartburn. - Genitourinary: Denies urinary problems or nocturia. Physical Exam General: Cooperative, healthy appearing, comfortable, no acute distress and well developed Orientation: Patient oriented x3 Limitations: No limitations Head: Normal to inspection Ears: Hearing grossly normal bilaterally, but patient reports tinnitus Nose: Normal external nose present Face and sinus: Normal facial exam Eyes: Appearance normal, both eyes and all related structures Neck: Normal visual inspection and Yes full ROM Respiratory: Normal respiratory effort and able to speak in complete sentences. Clear to auscultation bilaterally Cardiovascular: Regular rate and rhythm. Normal S1 and S2 GI: Normal to inspection. Soft to palpation and nontender Skin: No rashes or lesions noted Neuro: Patient oriented x3 Extremities: Normal to inspection Results - Labs (July): - CBC: Normal, no anemia. - CMP: Normal electrolytes, renal function, and blood sugar. - LFTs: Normal. - Lipid Panel: LDL cholesterol is 157 mg/dL. - Vitamin D: Mildly low. - Thyroid Panel: Abnormal thyroid, low TSH. - Procedures: - Colonoscopy (November): Showed mild chronic inactive ileitis and a hyperplastic polyp. - Imaging: - CT Enterography: Normal, with no acute abdominopelvic abnormalities or evidence of enteritis or colitis. 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 Plan Patient was informed and verbally consented to the use of an ambient scribe for clinic note documentation during this visit. 1. Obesity And Hypercholesterolemia The patient has experienced an 8-pound weight gain and struggles with weight loss. Her LDL cholesterol is elevated at 157 mg/dL, trending upwards, with a family history of heart attack being a concern. The patient declined statin therapy at this time. A prescription for Zepbound 2.5 mg subcutaneous injection weekly will be sent to the pharmacy for weight management. The risks, benefits, and alternatives were discussed, including potential for nausea, cost, availability, lack of long-term data, and a relative contraindication for depression. The patient was advised to message in three weeks for a dose increase if no weight loss is observed. The importance of incorporating diet and exercise was emphasized, with the goal of not remaining on the medication long- term. 2. Hypothyroidism Recent labs showed a low TSH level. The patient was advised to adjust her thyroid medication to be taken 6 days a week. A follow-up thyroid test is planned in a couple of months to reassess her levels. 3. Irritable Bowel Syndrome (Ibs) The patient's gastrointestinal symptoms are attributed to IBS, which is supported by a normal recent workup including a CT enterography and colonoscopy. The patient was counseled that her gut is clean and that emotional state can affect her symptoms. A high-fiber diet was recommended. Discussion Notes I had a detailed discussion with the patient regarding her weight gain and elevated cholesterol. We discussed initiating Zepbound for weight management, and I explained its mechanism of action, which involves slowing gut motility to promote early satiety. I reviewed the potential risks, including nausea, and noted that its long-term effects beyond two to three years are unknown. We also covered the challenges of availability and insurance coverage, with a potential [id number] cost of around $500 a month. The patient has a history of depression, which is a relative contraindication, and this was noted. I emphasized that the goal is not lifelong medication use and stressed the importance of simultaneous lifestyle changes, including increased activity and dietary modifications. The patient understood and agreed to a trial of the medication. I also reviewed the plan to adjust her thyroid medication to six days a week due to a low TSH and to recheck labs in a few months. We also discussed her upcoming mammogram and the need for annual Pap smears due to her HPV status. Patient Instructions - Take your thyroid medication 6 days a week, instead of every day. - You will need to have your thyroid levels checked with a blood test in a couple of months. - We have sent a prescription for Zepbound to your pharmacy, [facility] on [facility], to help with weight loss. - This is a weekly injection that you give yourself. - The medication may make you feel nauseous, especially for the first two days after the injection. - If you do not notice any weight loss after three weeks, please send us a message so we can adjust the dose. - Focus on making healthy lifestyle changes, including eating a balanced diet, increasing your physical activity, and drinking 6-8 glasses of water daily. - Proceed with your scheduled mammogram. - You will need to continue getting a Pap smear every year because of your HPV status. - Your tetanus shot is due next year. Medications: New tirzepatide (weight loss) (Zepbound) for 4 weeks 2.5 mg (0.5 mL) subcut QWEEK 2 mL 2RF E66.9 - Obesity, unspecified
--- OUTSIDE RECORDS SUMMARY | 2025-08-02 15:19 | XMS_ITS | Clinical Summary ---
Author Organization [facility] ity Address [address] [place] [address] Care Team Providers Care Technical Asst Name Role Phone Tom Gage MD Primary Care Provider [phone] Social History Tobacco Use Types Packs/Day Years [...] age to complete this topic Care Teams Technical Asst Relationship Specialty Start Date End Date Tom Gage MD [address] [place] [address] [address] [facility] [place] [address] PCP - General Internal Medicine 03/19/13
--- OUTSIDE RECORDS SUMMARY | 2025-08-02 15:19 | XMS_ITS | Encounter Summary ---
Author Organization [facility] Address [address] [place] [address] Care Team Providers Care Azure Developer Name Role Phone Reyna Bernard ERYN Primary Care Provider [phone] Encounter Details Date Type Department Care Team (Late st Contact Info) Description 03/02/2022 Dental Interim Note [facility] [address] [place] [phone] GaviriaRomelia santana [address] [place], [place] [id number] Social History Tobacco Use Types Packs/Day Years [...] on filedocumented in this encounter Care Teams Azure Developer Relationship Specialty Start Date End Date Reyna Bernard DMD [address] [place] [address] PCP - General 12/05/20 documented as of this encounter
--- OUTSIDE RECORDS SUMMARY | 2025-08-02 15:19 | XMS_ITS | Data Portability ---
Author Organization [place] - [facility], Allergy Address [address] [address] Care Team Providers Care Rehab Rn Name Role Phone ABRILBETI Primary Care Provider [phone] Assessment Encounter Date Assessment Date Assessment LastModified by Organization Details LastModified Time 04/22/2025 04/22/2025 1. Pulsatile Tinnitus left side for more than 5 years Further investigation with specialized MRI to evaluate the auditory and vascular structures is planned. This will rule out structural causes given the change from past intermittent symptoms to constant tinnitus and determine if action is necessary based on the findings. We discussed the possibility of idiopathic intracranial hypertension as a possible diagnosis. It is interesting that the noise goes away when you press on the left carotid. There are no bruits 2. Hearing Impairment Mild high tone hearing loss bilaterally and stable from 2019 Procedure Documentation: - Comprehensive ear examination was performed using an otoscope after obtaining patient consent. The patient's auditory acuity was assessed. [email or web address] Not available 04/22/2025 14:14:42 Plan of Treatment Reminders Order Date Submit Date Provider Last Modified By Organization Details Last Modified Time Details Appointments None recorded. Lab None recorded. Referral None recorded. Procedures None recorded. Surgeries None recorded. Imaging MR, angiogram, head, w/o contrast - Please use Dr. Lawrence' pulsatile tinnitus protocol 2024 025 [email or web address] [facility] ([facility]), [address], [place], [address], 09:26:51 MRI, brain + internal auditory canal, w/wo contrast - MRI, BRAIN + INTERNAL AUDITORY CANAL, W/WO CONTRAST 2024 025 [email or web address] [facility] ([facility]), [address], [place], [address], 09:26:44 Medication Orders None recorded. Patient TargetsNo targets recorded. Patient Instructions Encounter Date Encounter Id Patient Instructions Last Modified By Organization Details Last Modified Time 04/22/2025 [id number] Please note: Parts of this encounter note have been generated by AI based on audio conversation. Patient consent was required prior to utilizing this technology. Content review was required prior to finalizing the note. [email or web address] Not available 04/22/2025 14:11:54 Reason for Referral None Reported. Results Created Date Observation Date Name Description Value Unit Range Abnormal Flag Note LastModifiedBy Organization Detail LastModifiedTime 04/22/20 audio gram No observ ation record ed. BARCODE Not Available 2024 17:04:58 05/30/20 25 05/29/2025 MRI, brain + brain stem, w/wo contr ast [facility] Access ion Number : [id number] Patimoise t Name: Eli Randhawa Record Number : [id number] Date of : 1979 Date of Exam: 2024 Referr ing Physic karyn: Jomar altman , [facility] [address] [place] [address] Exam: MR Brain (C-/C+ ) CPT 59702 Room Descri ption: [facility] 3.0T MR Brain Angio (C-) CPT 04610, MR Brain (C-/C+ ) CPT 33524 INDICA TION / CLINIC AL QUESTI ON: Reason For Exam: H93.A2 - Pulsat ile tinnit us, left ear, , MRI, BRAIN + CHANGE ROOM ATTENDANT AL AUDITO RY CANAL, W/WO CONTRA ST\E E\[facility] (MRI, BRAIN + CHANGE ROOM ATTENDANT AL AUDITO RY CANAL, W/WO CONTRA ST), Additi onal Clinic al Indica tors: Pulsat ile tinnit us, Clinic al Indica tion: Pulsat ile tinnit us plea se use Dr Lawrence' pulsat ile tinnit us protoc ol Reason For Exam: H93.A2 - Pulsat ile tinnit us, left ear, , MRI, BRAIN + CHANGE ROOM ATTENDANT AL AUDITO RY CANAL, W/WO CONTRA ST\E E\[facility] (MRI, BRAIN + CHANGE ROOM ATTENDANT AL AUDITO RY CANAL, W/WO CONTRA ST), Additi onal Clinic al Indica tors: Pulsat ile tinnit us, Clinic al Indica tion: Pulsat ile tinnit us plea se use Dr Lawrence' pulsat ile tinnit us protoc ol TECHNI QUE: MRI of the brain with attent ion to the gallery intern al audito ry canals was perfor med with and withou t contra st utiliz ing sagitt al T1, axial T2, axial CISS, axial and farley l T1, and post-c ontras t axial and farley l T1-ann marie ghted sequen prashant. Axial T2, axial FLAIR, and postco ntrast T1 VIBE images were perfor med throug h the entire head. 8 mL Elucir em intrav enous contra st was admini stered . 3D time-o f-flig ht MRA of the head was perfor med withou t contra st. 3D rotati onal MIP reform ats of the vessel s were create d on a [employer] te workst ation and used in the interp retati on. COMPAR NATE: None. FINDIN GS: MRI BRAIN: IAC: There is no mass or abnorm al enhanc ement in the gallery intern al audito ry canals or cerebe llopon dominique angles . Course and calibe r of the 7th and 8th crania l nerves is normal bilate rally. Fluid signal is preser mackenzie in the inner ear struct ures bilate rally. Brains tem demons trates normal signal . BRAIN and EXTRA- AXIAL SPACES : No signif icant abnorm ality of the visual ized portio ns of the brain and extra- axial spaces . An 8 mm pineal cyst is noted. Partia lly empty sella config uratio n. The dural venous sinuse s opacif y normal ly on the post contra st imagin g with arachn oid granul ations noted at the bilate ral transv erse/s igmoid sinus juncti ons. EXTRAC RANIAL SOFT TISSUE S: Visual ized portio ns of the extrac ranial soft tissue s are unrema rkable . There is mild scatte red parana gerardo sinus mucosa l thicke adraino withou t fluid levels . BONES: Visual ized marrow signal is preser mackenzie. MRA HEAD: Anteri or circul ation: Bilate ral intrac ranial ICAs and their BECCA and MCA branch es are patent . There is no signif icant stenos is, proxim al cutoff , aneury sm, or vascul ar malfor mation . Straightening Press Operator ior circul ation: Bilate ral intrac ranial verteb ral arteri es, the basila r artery , bilate ral superi or cerebe llar arteri es, and bilate ral SILK SCREEN CUTTER branch es are patent . There is no signif icant stenos is, proxim al cutoff , aneury sm, or vascul ar malfor mation . Mildly domina nt left verteb ral artery . IMPRES AVI: No retroc ochlea r abnorm ality to explai n the patien t?s sympto ms. Unrema rkable MRA of the head. Electr onical ly Signed By: Anuja ponce MD [facility] [place] [facility] ([facility]) [address], [place], [address], 06/30/2025 08:02:48 05/30/20 25 05/29/2025 MR, angio gram, brain , w/[place] contr [place] Access ion Number : [id number] Patien t Name: Eli Randhawa Record Number : [id number] Date of : 1979 Date of Exam: 2024 Referr ing Physic karyn: Jordan [facility] [address] [place] [address] Exam: MR Brain Angio (C-) CPT 76527 Room Descri ption: [facility] 3.0T MR Brain Angio (C-) CPT 91261, MR Brain (C-/C+ ) CPT 97804 INDICA TION / CLINIC AL QUESTI ON: Reason For Exam: H93.A2 - Pulsat ile tinnit us, left ear, , MRI, BRAIN + CHANGE ROOM ATTENDANT AL AUDITO RY CANAL, W/WO CONTRA ST\E E\[facility] (MRI, BRAIN + CHANGE ROOM ATTENDANT AL AUDITO RY CANAL, W/WO CONTRA ST), Additi onal Clinic al Indica tors: Pulsat ile tinnit us, Clinic al Indica tion: Pulsat ile tinnit us plea se use Dr Fragoso pulsat ile tinnit us protoc ol Reason For Exam: H93.A2 - Pulsat ile tinnit us, left ear, , MRI, BRAIN + CHANGE ROOM ATTENDANT AL AUDITO RY CANAL, W/WO CONTRA ST\E E\[facility] (MRI, BRAIN + CHANGE ROOM ATTENDANT AL AUDITO RY CANAL, W/WO CONTRA ST), Additi onal Clinic al Indica tors: Pulsat ile tinnit us, Clinic al Indica tion: Pulsat ile tinnit us plea se use Dr Fragoso pulsat ile tinnit us protoc ol TECHNI QUE: MRI of the brain with attent ion to the gallery intern al audito ry canals was perfor med with and withou t contra st utiliz ing sagitt al T1, axial T2, axial CISS, axial and farley l T1, and post-c ontras t axial and [facility] l [facility]. Axial T2, axial FLAIR, and postco ntrast T1 VIBE images were perfor med throug h the entire head. 8 mL Elucir em intrav enous contra st was admini stered . 3D time-o f-flig ht MRA of the head was perfor med withou t contra st. 3D rotati onal MIP reform ats of the vessel s were create d on a [employer] [facility] and used in the interp retati on. COMPAR NATE: None. FINDIN GS: MRI BRAIN: IAC: There is no mass or abnorm al enhanc ement in the gallery intern al audito ry canals or cerebe llopon dominique angles . Course and calibe r of the 7th and 8th crania l nerves is normal bilate rally. Fluid signal is preser mackenzie in the inner ear struct ures bilate rally. Brains tem demons trates normal signal . BRAIN and EXTRA- AXIAL SPACES : No signif icant abnorm ality of the visual ized portio ns of the brain and extra- axial spaces . An 8 mm pineal cyst is noted. Partia lly empty sella config uratio n. The dural venous sinuse s opacif y normal ly on the post contra st imagin g with arachn oid granul ations noted at the bilate ral transv erse/s igmoid sinus juncti ons. EXTRAC RANIAL SOFT TISSUE S: Visual ized portio ns of the extrac ranial soft tissue s are unrema rkable . There is mild scatte red parana gerardo sinus mucosa l thicke adriano withou t fluid levels . BONES: Visual ized marrow signal is preser mackenzie. MRA HEAD: Anteri or circul ation: Bilate ral intrac ranial ICAs and their BECCA and MCA branch es are patent . There is no signif icant stenos is, proxim al cutoff , aneury sm, or vascul ar malfor mation . Straightening Press Operator ior circul ation: Bilate ral intrac ranial verteb ral arteri es, the basila r artery , bilate ral superi or cerebe llar arteri es, and bilate ral SILK SCREEN CUTTER branch es are patent . There is no signif icant stenos is, proxim al cutoff , aneury sm, or vascul ar malfor mation . Mildly domina nt left verteb ral artery . IMPRES AVI: No retroc ochlea r abnorm ality to explai n the patien t?s sympto ms. Unrema rkable MRA of the head. Electr onical ly Signed By: Anuja BEACH [facility] ([facility]) [address], [place], [address], 06/30/2025 08:02:48 Result Notes Documentation Provider Name and Address Organization Details Recorded Time Mri, Brain + Brain Stem, W/wo Contrast : [facility] Accession Number: [id number] Patient Name: Eli Randhawa Date of : 1980 Date of Exam: 05-29-2025 Referring Physician: Jordan [facility] [address] [place] [address] Exam: MR Brain (C-/C+) CPT 27092 Room Description: [facility] 3.0T MR Brain Angio (C-) CPT 00588, MR Brain (C-/C+) CPT 97528 INDICATION / CLINICAL QUESTION: Reason For Exam: H93.A2 - Pulsatile tinnitus, left ear, , MRI, BRAIN + INTERNAL AUDITORY CANAL, W/WO CONTRAST\E E\[facility] (MRI, BRAIN + INTERNAL AUDITORY CANAL, W/WO CONTRAST), Additional Clinical Indicators: Pulsatile tinnitus, Clinical Indication: Pulsatile tinnitus please use Dr Fragoso pulsatile tinnitus protocol Reason For Exam: H93.A2 - Pulsatile tinnitus, left ear, , MRI, BRAIN + INTERNAL AUDITORY CANAL, W/WO CONTRAST\E E\[facility] (MRI, BRAIN + INTERNAL AUDITORY CANAL, W/WO CONTRAST), Additional Clinical Indicators: Pulsatile tinnitus, Clinical Indication: Pulsatile tinnitus please use Dr Fragoso pulsatile tinnitus protocol TECHNIQUE: MRI of the brain with attention to the internal auditory canals was performed with and without contrast utilizing sagittal T1, axial T2, axial CISS, axial and coronal T1, and post-contrast axial and coronal T1-weighted sequences. Axial T2, axial FLAIR, and postcontrast T1 VIBE images were performed through the entire head. 8 mL Elucirem intravenous contrast was administered. 3D vosi-ez-fpaoyr MRA of the head was performed without contrast. 3D rotational MIP reformats of the vessels were created on a separate workstation and used in the interpretation. COMPARISON: None. FINDINGS: MRI BRAIN: IAC: There is no mass or abnormal enhancement in the internal auditory canals or cerebellopontine angles. Course and caliber of the 7th and 8th cranial nerves is normal bilaterally. Fluid signal is preserved in the inner ear structures bilaterally. Brainstem demonstrates normal signal. BRAIN and EXTRA-AXIAL SPACES: No significant abnormality of the visualized portions of the brain and extra-axial spaces. An 8 mm pineal cyst is noted. Partially empty sella configuration. The dural venous sinuses opacify normally on the post contrast imaging with arachnoid granulations noted at the bilateral transverse/sigmoid sinus junctions. EXTRACRANIAL SOFT TISSUES: Visualized portions of the extracranial soft tissues are unremarkable. There is mild scattered paranasal sinus mucosal thickening without fluid levels. BONES: Visualized marrow signal is preserved. MRA HEAD: Anterior circulation: Bilateral intracranial ICAs and their BECCA and MCA branches are patent. There is no significant stenosis, proximal cutoff, aneurysm, or vascular malformation. Posterior circulation: Bilateral intracranial vertebral arteries, the basilar artery, bilateral superior cerebellar arteries, and bilateral SILK SCREEN CUTTER branches are patent. There is no significant stenosis, proximal cutoff, aneurysm, or vascular malformation. Mildly dominant left vertebral artery. IMPRESSION: No retrocochlear abnormality to explain the patient?s symptoms. Unremarkable MRA of the head. Electronically Signed By: Anuja CHRIS MD [address] [facility],[address], [address], [facility] - [facility] 06/29/2025 17:57:34 Mr, Angiogram, Brain, W/o Contrast : [facility] Accession Number: [id number] Patient Name: Eli Randhawa Date of : 1980 Date of Exam: 05-29-2025 Referring Physician: [facility] 100 [place] [address] Exam: MR Brain Angio (C-) CPT 87936 Room Description: [facility] 3.0T MR Brain Angio (C-) CPT 15343, MR Brain (C-/C+) CPT 93414 INDICATION / CLINICAL QUESTION: Reason For Exam: H93.A2 - Pulsatile tinnitus, left ear, , MRI, BRAIN + INTERNAL AUDITORY CANAL, W/WO CONTRAST\E E\UNMAPPED LAB (MRI, BRAIN + INTERNAL AUDITORY CANAL, W/WO CONTRAST), Additional Clinical Indicators: Pulsatile tinnitus, Clinical Indication: Pulsatile tinnitus please use Dr Lawrence' pulsatile tinnitus protocol Reason For Exam: H93.A2 - Pulsatile tinnitus, left ear, , MRI, BRAIN + INTERNAL AUDITORY CANAL, W/WO CONTRAST\E E\[facility]MAPPED LAB (MRI, BRAIN + INTERNAL AUDITORY CANAL, W/WO CONTRAST), Additional Clinical Indicators: Pulsatile tinnitus, Clinical Indication: Pulsatile tinnitus please use Dr Lawrence' pulsatile tinnitus protocol TECHNIQUE: MRI of the brain with attention to the internal auditory canals was performed with and without contrast utilizing sagittal T1, axial T2, axial CISS, axial and coronal T1, and post-contrast axial and coronal T1-weighted sequences. Axial T2, axial FLAIR, and postcontrast T1 VIBE images were performed through the entire head. 8 mL Elucirem intravenous contrast was administered. 3D udrm-mb-blvkkl MRA of the head was performed without contrast. 3D rotational MIP reformats of the vessels were created on a separate workstation and used in the interpretation. COMPARISON: None. FINDINGS: MRI BRAIN: IAC: There is no mass or abnormal enhancement in the internal auditory canals or cerebellopontine angles. Course and caliber of the 7th and 8th cranial nerves is normal bilaterally. Fluid signal is preserved in the inner ear structures bilaterally. Brainstem demonstrates normal signal. BRAIN and EXTRA-AXIAL SPACES: No significant abnormality of the visualized portions of the brain and extra-axial spaces. An 8 mm pineal cyst is noted. Partially empty sella configuration. The dural venous sinuses opacify normally on the post contrast imaging with arachnoid granulations noted at the bilateral transverse/sigmoid sinus junctions. EXTRACRANIAL SOFT TISSUES: Visualized portions of the extracranial soft tissues are unremarkable. There is mild scattered paranasal sinus mucosal thickening without fluid levels. BONES: Visualized marrow signal is preserved. MRA HEAD: Anterior circulation: Bilateral intracranial ICAs and their BECCA and MCA branches are patent. There is no significant stenosis, proximal cutoff, aneurysm, or vascular malformation. Posterior circulation: Bilateral intracranial vertebral arteries, the basilar artery, bilateral superior cerebellar arteries, and bilateral SILK SCREEN CUTTER branches are patent. There is no significant stenosis, proximal cutoff, aneurysm, or vascular malformation. Mildly dominant left vertebral artery. IMPRESSION: No retrocochlear abnormality to explain the patient?s symptoms. Unremarkable MRA of the head. 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 2018 Hypothyro idism, unspecifi ed; Note: Date Diagnosed : 02/26/2019 10:34 AM (E03.9) Not Available [facility] 4 03:18:13 Tinnitus of vascular origin 482453879 Active 2018 Pulsatile tinnitus, bilateral ; Note: Date Diagnosed : 02/26/2019 10:33 AM (H93.A3) JORDAN LOCKETT MD [address] [facility],[place] [address], [place], [address] , [facility] - [facility] 5 14:10:57 Iron deficienc y anemia 96078951 Active 2018 Iron deficienc y anemia, unspecifi ed; Note: Date Diagnosed : 02/26/2019 10:34 AM (D50.9) Not Available [facility] 4 03:18:13 Bilateral tinnitus 65075110117 02 Active 2024 LOVE CONTRERAS [address], [place], [address] , [facility] - [facility] 5 13:46:36 Subjectiv e pulsatile tinnitus 95986105398 9104 Active 2024 JORDAN LOCKETT MD [address], [place], [address] , [facility] - [facility] 5 14:11:26 Anxiety 36330587 Active 2024 JORDAN LOCKETT MD [address], [place], [address] , [facility] - [facility] 5 12:46:27 Problem Notes None recorded. Procedures Surgical History Date Name Laterality Status Provider Name and Address Organization Details Recorded Time 04/22/2025 Air & Speech Audio with Tymps - 82245, 20966 & 12562 completed LOVE CONTRERAS [address], [place], [address], [facility] 04/22/2025 13:46:25 Imaging Results None recorded. Procedure Notes None recorded. Medical Equipment None Reported. Medications Name Sig Start Date Stop Date Status Note LastModified by Organization Details LastModified Time fluconazo le 150 mg tablet TAKE 1 TABLET BY MOUTH DAILY FOR 2 DAYS REPEAT DOSE IN 72 HOURS 04/22 completed Not Available Not Available Not Available metronida zole 500 mg tablet TAKE 1 TABLET BY MOUTH TWICE A DAY FOR 7 DAYS 04/22 completed Not Available Not Available Not Available levothyro xine 88 mcg tablet TAKE 1 TABLET BY MOUTH ONCE DAILY FOR 6 DAYS PER WEEK active Not Available Not Available No t Available hydroxyzi ne HCl 25 mg tablet TAKE 1 TABLET BY MOUTH THREE TIMES A DAY NEEDED FOR ANXIETY 04/22 completed Not Available Not Available Not Available lorazepam 1 mg tablet TAKE 1/2 TABLET BY MOUTH NEEDED DIRECTED FOR MRI active Not Available Not Available No t Available multivita min capsule 04/22 completed Medicati on ID: [id number] B rand Name: multivit omar Sen d Method: E-Prescr ibed Sub s Allowed: subs OK Medic ationGen ericName : multivit nelson Not Available Not Available Not Available Laxative (bisacody l) 5 mg tablet,de layed release TAKE 4 TABS X 5 MG)ORALL Y ONCE FOR 1 DAY TAKE 4 TABS AT NOON THE DAY BEFORE YOUR COLONOSC OPY 04/22 completed Not Available Not Available Not Available Purelax 17 gram/dose oral powder DISSOLVE 238G AND TAKE DIRECTED BY THE GASTROEN TEROLOGY DEPARTME NT AT [facility] 04/22 completed Not Available Not Available Not Available Vitals Date Recorded Body height Body mass index (BMI) Body weight Provider Name and Address Organization Details Last Updated DateTime 04/22/2025 152.4 cm 33.2 kg/m2 26325.7 g Aishwarya Trotter [place] - [facility] 04/22/2025 14:00:29 Social History None recorded. Functional Status None recorded. Mental Status None recorded. Family History Nothing Reported. Medical History Condition Response Anemia Y Thyroid Problems Y Gynecological HistoryNo gynecological history recorded. Obstetrics History GPAL:G 0 P 0 0 0 0 Past Encounters Encounter ID Performer Location Encounter Start Date Encounter Closed Date Diagnosis/Indication Diagnosis SNOMED-CT Code Diagnosis ICD10 Code Diagnosis IMO Codes Diagnosis Note [id number] JORDAN LOCKETT MD [facility] [address] [address] 04/22/2025 13:28:43 04/22/2025 14:14:25 Bilateral tinnitus 7086260036 102 H93.13 042024 Right Ear:Normal hearing through 6K Hz sloping to a mild SNHL with excellent speech discrimina tion.Type A tympanogra m.Left Ear:Normal hearing through 4K Hz sloping to a mild SNHL with excellent speech discrimina tion.Type A tympanogra m. Tinnitus o f vascular origin 497503711 H93.A2 86012017 Health Concerns Section Related Observation LastModified by Organization Detai ls LastModified Time None Recorded Concern Status LastModified by Organization Details LastModified Time None Recorded Advance Directives Directive None Recorded Payers Insurance Date Sequence Insurance Name Policy Number Policy Hurtado Covered Member ID Hurtado Member ID Guarantor Name 04/22/2025 1 [place] [facility] Eli Randhawa [id number] Eli Randhawa 04/22/[address] [facility] Eli Randhawa [id number] Eli Cruz 04/22/2025 1 [employer] OF [facility] [id number] Eli Randhawa [id number] Eli Randhawa Notes Date Note Type Note Provider Name and Address Organization Details Recorded Time 04/22/2025 text/html The patient is a 45-year-old female presenting with pulsatile tinnitus, particularly on the left side, unrelieved until she applies pressure behind the jaw. This condition has transitioned from intermittent in 2019 to constant. A prior CT angiogram showed no abnormalities. Her hearing, while stable, is impaired in noisy environments, causing difficulty in speech comprehension. Current blood pressure management appears effective. She does not report any other associated systemic symptoms. JORDAN CHRIS MD [address] [place] [address], [address], [facility] 04/22/2025 14:15:24 OBGyn Episode No OBEpisode recorded.
--- OUTSIDE RECORDS SUMMARY | 2025-08-02 15:19 | XMS_ITS | Clinical Summary ---
Author Organization [facility] Address [address] [place] [address] Care Team Providers Care Otolaryngology Nurse Name Role Phone Reyna Bernard DMD Primary Care Provider [phone] Source Comments PLEASE NOTE, if this patient [...] Drug Screen 09/26/2024 Depression Annual Screen 09/26/2024 [id number]-09 ( season) 2025 Imm-Influenza (#1) 2025 Hypertension [...] Health Maintenance Insurance [employer] Care Teams Otolaryngology Nurse Relationship Specialty Start Date End Date Reyna Bernard DMD [address] [place] [id number] PCP - General 12/05/20
== END 2025-08-02 14:55 | disposition home or self-care (01) ==
LOC: HO.HMCH 13:10
PROVIDERS: PCP Internal Medicine; Visit Provider Internal Medicine
DX: Z00.00 Encounter for general adult medical examination without abnormal findings (principal); E66.9 Obesity, unspecified; Z68.33 Body mass index [BMI] 33.0-33.9, adult; E03.9 Hypothyroidism, unspecified; E78.00 Pure hypercholesterolemia, unspecified; F41.1 Generalized anxiety disorder

== ENCOUNTER → 2025-08-02 13:10 | Outpatient (BNVA) | payer OTHER, SELFPAY | PROVIDERS: PCP Internal Medicine; Visit Provider Internal Medicine | DX: Z00.00 Encounter for general adult medical examination without abnormal findings (principal); E66.9 Obesity, unspecified; E03.9 Hypothyroidism, unspecified; E78.00 Pure hypercholesterolemia, unspecified; F41.1 Generalized anxiety disorder; K58.9 Irritable bowel syndrome, unspecified; Z68.33 Body mass index [BMI] 33.0-33.9, adult | CPT/HCPCS: 96127 ==

== ENCOUNTER 2025-08-12 12:30 | Outpatient (REF) | payer OTHER, SELFPAY ==
--- NOTE | ~2025-08-12 | MM_ITS ---
EXAMINATION: MM SCREENING DIGITAL BREAST TOMOSYNTHESIS, BILATERAL CLINICAL INFORMATION: Screening. Asymptomatic. COMPARISON: Comparison made to multiple prior, most recent August 06, 2024, and most remote July 28, 2022. TECHNIQUE: Digital breast tomosynthesis is performed in mediolateral oblique and craniocaudal views along with computer-aided detection (CAD). Synthesized 2D images are generated from the tomosynthesis. FINDINGS: BREAST COMPOSITION: There are scattered areas of fibroglandular density. BILATERAL BREASTS: No significant masses, suspicious calcifications or other abnormalities are seen in either breast. MM/MM tomosynthesis screening BI IMPRESSION: BILATERAL BREASTS: Negative, no mammographic evidence of malignancy. Normal interval follow-up is recommended in 12 months. ASSESSMENT: BI-RADS: Category 1: Negative RECOMMENDATION: Routine annual mammography screening. FOLLOW-UP: 1 year F/U This examination should not preclude the clinical evaluation of a suspicious palpable abnormality. This patient's information was entered into a reminder system with a target due date for their next mammogram. Electronically signed by: Kalin Hickey MD 08/14/2025 04:20 PM ROLAN
--- OUTSIDE RECORDS SUMMARY | 2025-08-13 01:05 | XMS_ITS | Data Portability ---
Author Organization [place] - [facility], Allergy Address [address] [address] Care Team Providers Care Community Engagement Manager Name Role Phone ABRILBETI Primary Care Provider [phone] Assessment Encounter Date Assessment Date Assessment LastModified [...] [place]' pulsatile tinnitus protocol 2024 025 [email or web address] [facility] ([facility]), [address] [facility], [place], [address], 09:26:51 MRI, brain + internal auditory canal, w/wo contrast - MRI, BRAIN + INTERNAL AUDITORY CANAL, W/WO CONTRAST 2024 025 [email or web address] [facility] ([facility]), [address], [place], [address], 09:26:44 Medication Orders None recorded. Patient TargetsNo targets recorded. Patient Instructions Encounter Date Encounter Id Patient Instructions Last Modified By Organization Details Last Modified Time 04/22/2025 [id number] Please note: Parts of this encounter note [...] stem, w/wo contr ast [place] [facility] Access ion Number : [id number] Patimoise t Name: Eli Randhawa Record Number : [id number] Date of : 1979 Date of Exam: 2024 Referr ing Physic karyn: Jomar altman , [facility] [address] [place] [address] Exam: MR Brain (C-/C+ ) CPT 64822 Room Descri ption: [employer] 3.0T MR Brain Angio (C-) CPT 48339, MR Brain (C-/C+ ) CPT 80776 INDICA TION / CLINIC AL QUESTI ON: Reason For Exam: H93.A2 - Pulsat ile tinnit us, left ear, , MRI, BRAIN + RESEARCH PROGRAM MANAGER AL AUDITO RY CANAL, W/WO CONTRA ST\E E\[facility] (MRI, BRAIN + RESEARCH PROGRAM MANAGER AL AUDITO RY CANAL, W/WO CONTRA ST), Additi onal Clinic al Indica tors: Pulsat ile tinnit us, Clinic al Indica tion: Pulsat ile tinnit us plea se use Dr Lawrence' pulsat ile tinnit us protoc ol Reason For Exam: H93.A2 - Pulsat ile tinnit us, left ear, , MRI, BRAIN + RESEARCH PROGRAM MANAGER AL AUDITO RY CANAL, W/WO CONTRA ST\E E\[facility] (MRI, BRAIN + RESEARCH PROGRAM MANAGER AL AUDITO RY CANAL, W/WO CONTRA ST), Additi onal Clinic al Indica tors: Pulsat ile tinnit us, Clinic al Indica tion: Pulsat ile tinnit us plea se use Dr Lawrence' pulsat ile tinnit us protoc ol TECHNI QUE: MRI of the brain with attent ion to the medical assistant internal medicine al audito ry canals was perfor med [...] vessel s were create d on a [employer] te workst ation and used in the interp retati on. COMPAR NATE: None. FINDIN GS: MRI BRAIN: IAC: There is no mass or abnorm al enhanc ement in the medical assistant internal medicine al audito ry canals or cerebe llopon [...] sm, or vascul ar malfor mation . 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 There is no signif icant stenos is, proxim al cutoff , aneury sm, or vascul ar malfor mation . Mildly domina nt left verteb ral artery . IMPRES AVI: No retroc ochlea r abnorm ality to explai n the patien t?s sympto ms. Unrema rkable MRA of the head. Electr onical ly Signed By: Anuja ponce MD [facility] ([facility]) [address], [place], [address], 06/30/2025 08:02:48 05/30/20 25 05/29/2025 MR, angio gram, brain , w/o contr ast [place] [facility]- [facility] Access ion Number : [id number] Patien t Name: Eli Randhawa Record Number : [id number] Date of : 1979 Date of Exam: 2024 Referr ing Physic karyn: [facility] [address] [place] [address] Exam: MR Brain Angio (C-) CPT 14756 Room Descri ption: [employer] 3.0T MR Brain Angio (C-) CPT 16027, MR Brain (C-/C+ ) CPT 81126 INDICA TION / CLINIC AL QUESTI ON: Reason For Exam: H93.A2 - Pulsat ile tinnit us, left ear, , MRI, BRAIN + RESEARCH PROGRAM MANAGER AL AUDITO RY CANAL, W/WO CONTRA ST\E E\[facility] (MRI, BRAIN + RESEARCH PROGRAM MANAGER AL AUDITO RY CANAL, W/WO CONTRA ST), Additi onal Clinic al Indica tors: Pulsat ile tinnit us, Clinic al Indica tion: Pulsat ile tinnit us plea se use Dr Fragoso pulsat ile tinnit us protoc ol Reason For Exam: H93.A2 - Pulsat ile tinnit us, left ear, , MRI, BRAIN + RESEARCH PROGRAM MANAGER AL AUDITO RY CANAL, W/WO CONTRA ST\E E\[facility] (MRI, BRAIN + RESEARCH PROGRAM MANAGER AL AUDITO RY CANAL, W/WO CONTRA ST), Additi onal Clinic al Indica tors: Pulsat ile tinnit us, Clinic al Indica tion: Pulsat ile tinnit us plea se use Dr Fragoso pulsat ile tinnit us protoc ol TECHNI QUE: MRI of the brain with attent ion to the medical assistant internal medicine al audito ry canals was perfor med with and withou t contra st utiliz ing sagitt al T1, axial T2, axial CISS, axial and farley l T1, and post-c ontras t axial and far[facility] l [facility]. Axial T2, axial FLAIR, and postco ntrast T1 VIBE images were perfor med throug h the entire head. 8 mL Elucir em intrav enous contra st was admini stered . 3D time-o f-flig ht MRA of the head was perfor med withou t contra st. 3D rotati onal MIP reform ats of the vessel s were create d [facility] [employer] [facility] and used in the interp retati on. COMPAR NATE: None. FINDIN GS: MRI BRAIN: IAC: There is no mass or abnorm al enhanc ement in the medical assistant internal medicine al audito ry canals or cerebe llopon [...] sm, or vascul ar malfor mation . 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 There is no signif icant stenos is, proxim al cutoff , aneury sm, or vascul ar malfor mation . Mildly domina nt left verteb ral artery . IMPRES AVI: No retroc ochlea r abnorm ality to explai n the patien t?s sympto ms. Unrema rkable MRA of the head. Electr onical ly Signed By: Anuja [place]ACH [facility] ([facility]) [address] [facility] [address], [place], [address], 06/30/2025 08:02:48 Result Notes Documentation Provider Name and Address Organization Details Recorded Time Mri, Brain + Brain Stem, W/wo Contrast : [facility] Accession Number: [id number] Patient Name: Eli Randhawa Date of : 1980 Date of Exam: 05-29-2025 Referring Physician: [facility] [address] [place] [address] Exam: MR Brain (C-/C+) CPT 67388 Room Description: [employer] 3.0T MR Brain Angio (C-) CPT 86284, MR Brain (C-/C+) CPT 93351 INDICATION / CLINICAL QUESTION: Reason For Exam: [...] mL Elucirem intravenous contrast was administered. 3D ibky-jq-pmythk MRA of the head was performed without [...] artery, bilateral superior cerebellar arteries, and bilateral SHEEP OR CALF GRADER branches are patent. There is no significant stenosis, proximal cutoff, aneurysm, or vascular malformation. Mildly dominant left vertebral artery. IMPRESSION: No retrocochlear abnormality to explain the patient?s symptoms. Unremarkable MRA of the head. Electronically Signed By: Anuja CHRIS MD [address] [facility],[address], [address], [facility] - [facility] 06/29/2025 17:57:34 Mr, Angiogram, Brain, W/o Contrast : [facility] Accession Number: [id number] Patient Name: Eli Randhawa Date of : 1980 Date of Exam: 05-29-2025 Referring Physician: [facility] [address] [facility] 100 [place] [address] Exam: MR Brain Angio (C-) CPT 59684 Room Description: [employer] 3.0T MR Brain Angio (C-) CPT 59085, MR Brain (C-/C+) CPT 80236 INDICATION / CLINICAL QUESTION: Reason For Exam: [...] mL Elucirem intravenous contrast was administered. 3D [id number]-kn-hgpzkr MRA of the head was performed without [...] artery, bilateral superior cerebellar arteries, and bilateral SHEEP OR CALF GRADER branches are patent. There is no significant stenosis, proximal cutoff, aneurysm, or vascular malformation. Mildly dominant left vertebral artery. IMPRESSION: No retrocochlear abnormality to explain the patient?s symptoms. Unremarkable MRA of the head. 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 Hypothyro idism, unspecifi ed; Note: Date Diagnosed : 02/26/2019 10:34 AM (E03.9) Not Available [facility] 4 03:18:13 Tinnitus of vascular origin 476117035 Active 2018 Pulsatile tinnitus, bilateral ; Note: Date Diagnosed : 02/26/2019 10:33 AM (H93.A3) JORDAN LOCKETT MD [address] [facility],[place] [address], [place], [address] , [facility] - [facility] 5 14:10:57 Iron deficienc y anemia 06902144 Active 2018 Iron deficienc y anemia, unspecifi ed; Note: Date Diagnosed : 02/26/2019 10:34 AM (D50.9) Not Available [facility] 4 03:18:13 Bilateral tinnitus 22567217699 02 Active 2024 LOVE OCNTRERAS [address], [place], [address] , [facility] - [facility] 5 13:46:36 Subjectiv e pulsatile tinnitus 77963686196 9104 Active 2024 JORDAN LOCKETT MD [address], [place], [address] , [facility] - [facility] 5 14:11:26 Anxiety 49631477 Active 2024 JORDAN LOCKETT MD [address], [place], [address] , [facility] - [facility] 5 12:46:27 Problem Notes None recorded. Procedures Surgical History Date Name Laterality Status Provider Name and Address Organization Details Recorded Time 04/22/2025 Air & Speech Audio with Tymps - 63947, 21759 & 60161 completed LOVE CONTRERAS [address], [place], [address], [facility] 04/22/2025 13:46:25 Imaging Results None recorded. [...] min capsule 04/22 completed Medicati on ID: [id number] B rand Name: multivit omar Sen d [...] BY THE GASTROEN TEROLOGY DEPARTME NT AT [facility] 04/22 completed Not Available Not Available Not Available Vitals Date Recorded Body height Body mass index (BMI) Body weight Provider Name and Address Organization Details Last Updated DateTime 04/22/2025 152.4 cm 33.2 kg/m2 44595.7 g Aishwarya Trotter [place] - [facility] 04/22/2025 14:00:29 Social History None recorded. Functional Status None recorded. Mental Status None recorded. Family History Nothing Reported. Medical History Condition Response Thyroid Problems Y Anemia Y Gynecological HistoryNo gynecological history recorded. Obstetrics History GPAL:G 0 P 0 0 0 0 Past Encounters Encounter ID Performer Location Encounter Start Date Encounter Closed Date Diagnosis/Indication Diagnosis SNOMED-CT Code Diagnosis ICD10 Code Diagnosis IMO Codes Diagnosis Note [id number] JORDAN LOCKETT MD [facility] [address] [address] 04/22/2025 13:28:43 04/22/2025 14:14:25 Bilateral tinnitus 6297094200 102 H93.13 498383 Right Ear:Normal hearing through 6K Hz sloping to a mild SNHL with excellent speech discrimina tion.Type A tympanogra m.Left Ear:Normal hearing through 4K Hz sloping to a mild SNHL with excellent speech discrimina tion.Type A tympanogra m. Tinnitus o f vascular origin 102366141 H93.A2 [id number] Health Concerns Section Related Observation LastModified by Organization Detai ls LastModified Time None Recorded Concern Status LastModified by Organization Details LastModified Time None Recorded Advance Directives Directive None Recorded Payers Insurance Date Sequence Insurance Name Policy Number Policy Hurtado Covered Member ID Hurtado Member ID Guarantor Name 04/22/2025 1 [place] [facility] Eli Randhawa [id number] Eli Randhawa 04/22/2025 1 [facility] Eli Randhawa [id number] Eli Cruz 04/22/2025 1 [employer] [facility] [facility] [id number] Eil Randhawa [id number] Eli Randhawa Notes Date Note Type Note [...] other associated systemic symptoms. JORDAN CHRIS MD [address] [place] [address], [address], [facility] 04/22/2025 14:15:24 OBGyn Episode No OBEpisode recorded.
== END 2025-08-12 12:31 | disposition home or self-care (01) ==
LOC: HO.MAMMO 12:30
PROVIDERS: PCP Internal Medicine; Visit Provider Internal Medicine
DX: Z12.31 Encounter for screening mammogram for malignant neoplasm of breast (principal)
CPT/HCPCS: 77063; 77067

== ENCOUNTER → 2025-08-12 12:40 | Outpatient (BNV) | payer OTHER, SELFPAY | PROVIDERS: PCP Internal Medicine; Visit Provider Radiology Body Imaging | DX: Z12.31 Encounter for screening mammogram for malignant neoplasm of breast (principal) | CPT/HCPCS: 77063; 77067 ==